=== PATIENT | male | born 1940 ===

== ENCOUNTER 2017-01-23 11:48 | Day surgery (SDC) | payer MEDICARE, OTHER ==
[2017-01-16 09:28] VITALS: BMI 32.9
[2017-01-23 12:43] LABS: BASO # 0.02 K/mm3 (0.0-2.0); BASO % 0.3 % (0.0-3.0); EOS # 0.2 (0.0-0.7); EOS % 3.2 % (1.5-5.0); GRAN # 3.78 (1.4-6.5); GRAN % 57.7 % (50.0-68.0); HEMOGLOBIN 9.7 gm/dL (14.0-18.0); LYMPH % 30.4 % (22.0-35.0); MEAN CELL VOLUME 101.3 fL (80.0-105.0); MEAN CORPUSCULAR HGB CONC 31.6 g/dl (31.0-37.0); MEAN PLATELET VOLUME 9.8 fl (7.0-11.0); MONO # 0.6 (0.1-0.6); MONO % 8.4 % (1.0-6.0); PLATELET COUNT 295 10^3/uL (120.0-450.0); RBC 3.03 10^6/uL (3.5-6.1); RED CELL DISTRIBUTION WIDTH 13.7 % (11.5-14.5); WHITE BLOOD COUNT 6.6 10^3/ul (4.5-11.0)
[2017-01-23 12:48] LABS: INR 1.06 (0.93-1.08); PARTIAL THROMBOPLASTIN TIME 27.4 Seconds (23.7-30.8); PROTHROMBIN TIME 11.4 Seconds (9.9-11.8)
[2017-01-23 12:49] LABS: CALCIUM 8.9 mg/dL (8.4-10.5)
--- NOTE | 2017-01-23 12:53 | CP.SDSHP ---
Same Day Surgery H & P - History Proposed Procedure: ct guided liver Bx. Pre-Op Diagnosis: liver masses .Hx OF RENAL CELL ca s/p nephrectomy. - Previous Medical/Surgical History Cardiac: Hypertension Pulmonary: Smoking, Other (multiple nodules .) Endocrine/Metabolic: Diabetes, Renal Disease Misc: Other (liver masses.) Previous Surgical History: left nephrectomy. - Allergies Allergies: Allergies No Known Allergies Allergy (Verified 07/20/15 12:08) - Physical Exam General Appearance: WML. Mental Status: Alert & Oriented x3 Neuro: WNL Heart: WNL Lungs: WNL GI: WNL - {Optional Preform as Required} Other Pertinent Findings: arthritis. - Impression Impression: liver masses r/o mets.hx of renal cell ca. - Date & Time Date: 01/23/17 Time: 12:53 Short Stay Discharge - Short Stay Discharge Admitting Diagnosis/Reason for Visit: RENAL CA K76.89/C64.9 Disposition: HOME/ ROUTINE Referrals: Aurora Don MD [Primary Care Provider] -
[2017-01-23] MEDS ORDERED: Midazolam 2 MG/2 ML VIAL ONE (14:42)
[2017-01-23] MEDS ORDERED: Sodium Chloride 0.45% 1,000 ML IV SCH (15:45)
[2017-01-23 16:40] VITALS: TEMP 97.4
[2017-01-23 16:56] VITALS: BP 119/66; PULSE 59; RESP 18; O2SAT 99
--- NOTE | 2017-01-23 16:59 | CT ---
PROCEDURE: CT guided liver biopsy. HISTORY: Stable metastatic renal cell carcinoma. New 3.5 cm right liver mass. Or liver metastasis. PHYSICIAN(S): Travis Austin MD. TECHNIQUE: The relative risks and indications of the procedure were explained to the patient and consent obtained. The patient was placed supine on the CT scanner and preliminary images through the liver obtained. Conscious sedation and monitoring were provided throughout the procedure by a nurse. There is a well-circumscribed 3.5 cm mass in the anterior portion of the right liver.. A right intercostal approach was selected and the area prepped and draped in the usual sterile fashion. 1% Xylocaine was used to anesthetize the skin and soft tissues. A 17-gauge guiding needle was advanced into the 3.5 cm right liver mass. Its position was confirmed with CT. Initially 15 cc of clear white fluid was obtained. The specimen was sent for cytology. In addition, core biopsies of the residual wall were obtained. The postprocedure imaging demonstrates a smooth walled cyst. IMPRESSION: 1. CT-guided liver biopsy as described above. It appears that the lesion biopsied was a simple cyst. 2. A PET-CT would be useful to evaluate additional lesions in the liver. If additional lesions are identified which can be biopsied, a repeat biopsy can be performed.
== END 2017-01-23 17:10 | disposition home or self-care (01) ==
LOC: SDS 11:48
PROVIDERS: ATTEND Radiology Vascular & Interventional Radiology
DX: K76.89 Other specified diseases of liver (principal); R16.0 Hepatomegaly, not elsewhere classified; I10 Essential (primary) hypertension; Z85.528 Personal history of other malignant neoplasm of kidney; Z90.5 Acquired absence of kidney; E11.9 Type 2 diabetes mellitus without complications; Z79.84 Long term (current) use of oral hypoglycemic drugs
CPT/HCPCS: 36415; 47000; 77012; 80048; 85025; 85610; 85730; 88108; 88307; J2250; J2405; J3010; J7030

== ENCOUNTER 2018-03-01 10:13 | Inpatient (IN) | payer MEDICARE, OTHER ==
[2018-03-01 10:19] VITALS: BMI 31.7
--- NOTE | 2018-03-01 11:10 | ED PDOC ---
Arrival/HPI - General Chief Complaint: GI Problem Time Seen by Provider: 03/01/18 11:00 Historian: Patient, Spouse, Family - History of Present Illness Narrative History of Present Illness (Text): 03/01/18 11:00 Mr. Gilberto Robert, is a 78 yo male whose PMHx includes Lung CA and DM, presents to the ED with family members c/o nausea, vomiting, diarrhea x 4 days. Patient also noted right sided CP x 1 day. Patient saw his pmh 2 days ago, who prescribed hime Zofran, Lomotil, and Protonix without significant relief of symptoms, Patient stated he has chronic sob, and mild left abdominal pain. Denies fever, skin rash, recent travel, sick contact, recent travel, sick contact or shortness of breath. Time/Duration: Other (see hpi) Context: Home Past Medical History - Provider Review Nursing Documentation Reviewed: Yes - Infectious Disease Hx of Infectious Diseases: None - Cardiac Hx Hypertension: Yes Hx Pacemaker: No - Pulmonary Hx Lung Cancer: Yes (on treatment) - Neurological Hx Neurological Disorder: No - HEENT Hx HEENT Disorder: No - Renal Hx Renal Disorder: Yes - Endocrine/Metabolic Hx Endocrine Disorders: Yes Hx Diabetes Mellitus Type 2: Yes - Hematological/Oncological Hx Anemia: Yes Hx Blood Transfusions: Yes (2006 OR 2007) Hx Blood Transfusion Reaction: No Other/Comment: kideny ca. lung ca - Integumentary Hx Dermatological Disorder: Yes - Musculoskeletal/Rheumatological Hx Musculoskeletal Disorders: No - Gastrointestinal Hx Gastrointestinal Disorders: No - Genitourinary/Gynecological Other/Comment: kidney cancer - Psychiatric Hx Psychophysiologic Disorder: No Hx Substance Use: No - Surgical History Other/Comment: solitary kidney - Anesthesia Hx Anesthesia: Yes Hx Anesthesia Reactions: No Hx Malignant Hyperthermia: No Family/Social History - Physician Review Nursing Documentation Reviewed: Yes Family/Social History: Other (noncontributory) Smoking Status: Former Smoker Hx Alcohol Use: No Hx Substance Use: No Allergies/Home Meds Allergies/Adverse Reactions: Allergies No Known Allergies Allergy (Verified 07/20/15 12:08) Home Medications: Home Meds Medication Instructions Recorded Confirmed Glipizide 5 mg PO BID 05/29/15 03/01/18 MetFORMIN ER [Glucophage XR] 500 mg PO BID 05/29/15 03/01/18 Multivit-Mins/Iron/Folic/Lycop 1 each PO DAILY 01/16/17 03/01/18 [Centrum Men's Tablet] Lisinopril/Hydrochlorothiazide 1 tab PO DAILY 01/23/17 03/01/18 [Lisinopril-Hctz 20-25 mg Tab] amLODIPine [Norvasc] 1 tab PO DAILY PRN 01/23/17 03/01/18 Pazopanib HCl [Votrient] 1 tab PO DAILY 03/01/18 03/01/18 Review of Systems - Review of Systems Constitutional: Normal. absent: Fatigue, Weight Change, Fevers, Night Sweats Eyes: Normal ENT: Normal Respiratory: Normal Cardiovascular: Chest Pain Gastrointestinal: Abdominal Pain, Diarrhea, Nausea, Vomiting, Other (denies rectal bleeding). absent: Hematochezia, Hematemesis Genitourinary Male: Normal. absent: Dysuria, Frequency, Hematuria Musculoskeletal: Normal Skin: Normal. absent: Rash Neurological: Dizziness, Other (patient feels to weak to walk. He has unstable gait.). absent: Headache, Focal Weakness, Gait Changes, Speech Changes, Facial Droop, Disequilibrium, Seizure Endocrine: Normal Hemo/Lymphatic: Normal Psychiatric: Normal Physical Exam Vital Signs Temp Pulse Resp BP Pulse Ox 03/01/18 10:22 97.8 F 73 18 120/84 99 Temperature: Afebrile Blood Pressure: Normal Pulse: Regular Respiratory Rate: Normal Appearance: Positive for: Well-Appearing, Non-Toxic, Comfortable Pain Distress: None Mental Status: Positive for: Alert and Oriented X 3 - Systems Exam Head: Present: Atraumatic, Normocephalic Pupils: Present: PERRL Extroacular Muscles: Present: EOMI Conjunctiva: Present: Normal Mouth: Present: Moist Mucous Membranes Neck: Present: Normal Range of Motion Respiratory/Chest: Present: Clear to Auscultation, Good Air Exchange. No: Respiratory Distress, Accessory Muscle Use Cardiovascular: Present: Regular Rate and Rhythm, Normal S1, S2. No: Murmurs Abdomen: No: Tenderness, Distention, Peritoneal Signs Back: Present: Normal Inspection Upper Extremity: Present: Normal Inspection. No: Cyanosis, Edema Lower Extremity: Present: Normal Inspection. No: Edema Neurological: Present: GCS=15, CN II-XII Intact, Speech Normal, Motor Func Grossly Intact, Normal Sensory Function, Normal Cerebellar Funct Skin: Present: Warm, Dry, Normal Color. No: Rashes Psychiatric: Present: Alert, Oriented x 3, Normal Insight, Normal Concentration Medical Decision Making ED Course and Treatment: 03/01/18 15:[address] Garza regarding labs result, severe hyponatremia. He said he would come and examine patient. Patient will go to ICU. 03/01/18 15:44 I reviewed labs Re-evaluation Time: 15:23 Reassessment Condition: Re-examined, Improving,but remains with symptoms - Lab Interpretations Lab Results: 03/01/18 12:05 03/01/18 12:05 Lab Results 03/01/18 14:30: D-Dimer, Quantitative 329 H 03/01/18 12:20: Urine Color Yellow, Urine Appearance Sl cloudy, Urine pH 6.0, Ur Specific [place] 1.020, Urine Protein >=300 H, Urine Glucose (UA) Negative, Urine Ketones Negative, Urine Blood Small H, Urine Nitrate Negative, Urine Bilirubin Negative, Urine Urobilinogen 0.2, Ur Leukocyte Esterase Negative, Urine RBC 5 - 10, Urine WBC 0 - 2, Ur Epithelial Cells None, Urine Bacteria Mod 03/01/18 12:05: pO2 47, VBG pH 7.42, VBG pCO2 38.0 L, VBG HCO3 24.6, VBG Total CO2 25.8, VBG O2 Sat (Calc) 87.9 H, VBG Base Excess 0.3, VBG Potassium 4.0, Sodium 106.0 L*, Chloride 73.0 L, Glucose 167 H, Lactate 1.8, FiO2 21.0, Venous Blood Potassium 4.0 03/01/18 12:05: Sodium 105 L* D, Chloride 73 L D, Potassium 4.5, Carbon Dioxide 22, Anion Gap 15, BUN 22 H, Creatinine 1.3, Est GFR ( Amer) > 60, Est GFR (Non-Af Amer) 54, Random Glucose 151 H, Calcium 8.5, Total Bilirubin 0.7, AST 49, ALT 33, Alkaline Phosphatase 81, Lactate Dehydrogenase 516, Total Creatine Kinase 947 H, CK-MB (CK-2) 21.9 H, CK-MB (CK-2) % 2.3 L, Troponin I 0.02, NT-Pro-B Natriuret Pep 6410 H, Total Protein 6.3, Albumin 3.4, Globulin 2.9, Albumin/Globulin Ratio 1.2, Amylase 148 H, Lipase 562 H 03/01/18 12:05: PT 12.8 H, INR 1.11, APTT 26.3, D-Dimer, Quantitative Cancelled 03/01/18 12:05: WBC 11.0 D, RBC 3.57, Hgb 11.5 L, Hct 30.8 L, MCV 86.3, MCH 32.2, MCHC 37.3 H, RDW 12.7, Plt Count 390, MPV 9.5, Gran % 82.9 H, Lymph % ( Auto) 10.8 L, Rock % (Auto) 5.9, Eos % (Auto) 0.4 L, Baso % (Auto) 0.0, Gran # 9.09 H, Lymph # (Auto) 1.2, Rock # (Auto) 0.7 H, Eos # (Auto) 0.0, Baso # (Auto ) 0.00 I have reviewed the lab results: Yes Interpretation: Abnormal lab values - RAD Interpretation Radiology Orders: 03/01/18 11:11 ABD & PELVIS IV CONTRAST ONLY [CT] Stat CHEST PORTABLE [RAD] Stat 03/01/18 11:24 HEAD W/O CONTRAST [CT] Stat - EKG Interpretation Interpreted by ED Physician: Yes (NSR @ [address] bpm. In[address]B. No ST changes ) Type: 12 lead EKG Comparison: Similar to previous EKG - Medication Orders Current Medication Orders: Discontinued Medications Famotidine (Pepcid) 20 mg IVP STAT STA Stop: 03/01/18 11:11 Last Admin: 03/01/18 12:21 Dose: 20 mg IVP Administration Document 03/01/18 12:21 [facility] (Rec: 03/01/18 12:21 [facility] [id number]) Charges for Administration # of IVP Administrations 1 Sodium Chloride (Sodium Chloride 0.9%) 1,000 mls @ 999 mls/hr IV .Q1H1M STA Stop: 03/01/18 12:12 Last Admin: 03/01/18 12:22 Dose: 999 mls/hr eMAR Start Stop Document 03/01/18 12:22 GM (Rec: 03/01/18 12:23 [facility] [id number]) Intravenous Solution Start Date 03/01/18 Start Time 12:23 Ondansetron HCl (Zofran Inj) 4 mg IVP STAT STA Stop: 03/01/18 11:11 Last Admin: 03/01/18 12:21 Dose: 4 mg IVP Administration Document 03/01/18 12:21 [facility] (Rec: 03/01/18 12:21 [facility] [id number]) Charges for Administration # of IVP Administrations 1 Disposition/Present on Arrival - Present on Arrival Any Indicators Present on Arrival: No History of DVT/PE: No History of Uncontrolled Diabetes: No Urinary Catheter: No History of Decub. Ulcer: No History Surgical Site Infection Following: None - Disposition Have Diagnosis and Disposition been Completed?: Yes Diagnosis: Hyponatremia, Nausea & vomiting, Diarrhea Disposition: HOSPITALIZED Disposition Time: 15:56 Patient Problems: Current Active Problems Problem Status Onset Diarrhea Acute Hyponatremia Acute Nausea & vomiting Acute Condition: GUARDED Forms: [facility] (Congolese)
[2018-03-01] MEDS ORDERED: Sodium Chloride 0.9% 1,000 ML IV STA (11:12)
[2018-03-01 12:15] LABS: VENOUS BLOOD GAS BASE EXCESS 0.3 mmol/L (0.0-2.0); VENOUS BLOOD GAS PO2 47 mm/Hg (30-55); VENOUS BLOOD PH 7.42 (7.32-7.43)
[2018-03-01 12:20] LABS: EOS % 0.4 % (1.5-5.0); GRAN # 9.09 (1.4-6.5); GRAN % 82.9 % (50.0-68.0); HEMOGLOBIN 11.5 g/dL (14.0-18.0); LYMPH # 1.2 (1.2-3.4); LYMPH % 10.8 % (22.0-35.0); MEAN CELL VOLUME 86.3 fl (80.0-105.0); MEAN CORPUSCULAR HEMOGLOBIN 32.2 pg (25.0-35.0); MEAN CORPUSCULAR HGB CONC 37.3 g/dl (31.0-37.0); MEAN PLATELET VOLUME 9.5 fl (7.0-11.0); MONO # 0.7 (0.1-0.6); MONO % 5.9 % (1.0-6.0); RBC 3.57 10^6/uL (3.5-6.1); RED CELL DISTRIBUTION WIDTH 12.7 % (11.5-14.5)
[2018-03-01 12:25] LABS: INR 1.11; PARTIAL THROMBOPLASTIN TIME 26.3 Seconds (25.1-36.5); PROTHROMBIN TIME 12.8 SECONDS (9.4-12.5)
[2018-03-01 12:41] LABS: ALB/GLOB RATIO 1.2 (1.1-1.8); ALBUMIN 3.4 g/dL (3.0-4.8); ALT/SGPT 33 U/L (7-56); AMYLASE 148 U/L (35-125); AST/SGOT 49 U/L (17-59); BLOOD UREA NITROGEN 22 mg/dL (7-21); CALCIUM 8.5 mg/dL (8.4-10.5); GFR NON-AFRICAN AMERICAN 54; LIPASE 562 U/L (23-300)
[2018-03-01] MEDS ORDERED: Iohexol 350 MG/100 ML VIAL ONE (12:44)
[2018-03-01 12:47] LABS: B-TYPE NATRIURETIC PEPTIDE 6410 pg/mL (0-450); TROPONIN I 0.02 ng/mL
[2018-03-01 13:10] LABS: CK MB% 2.3 % (2.5-3.0); CK-MB 21.9 ng/mL (0.0-3.6)
--- NOTE | 2018-03-01 13:36 | CT ---
Date of service: 03/01/2018 PROCEDURE: CT HEAD WITHOUT CONTRAST. HISTORY: Weakness. COMPARISON: None available. TECHNIQUE: Axial computed tomography images were obtained through the head/brain without intravenous contrast. Radiation dose: Total exam DLP = 781.62 mGy-cm. This CT exam was performed using one or more of the following dose reduction techniques: Automated exposure control, adjustment of the mA and/or kV according to patient size, and/or use of iterative reconstruction technique. FINDINGS: HEMORRHAGE: No acute parenchymal, subarachnoid or extra-axial hemorrhage. BRAIN: There appears to be some very minor chronic periventricular white matter ischemic changes. No obvious parenchymal nor extra-axial mass or collection identified on this noncontrast exam. . Mild generalized volume loss. Vascular calcifications both carotid siphons. VENTRICLES: No obstructive hydrocephalus. CALVARIUM: No acute calvarial fractures. PARANASAL SINUSES: Minor mucosal thickening seen within the ethmoid air complex MASTOID AIR CELLS: Unremarkable as visualized. No inflammatory changes. OTHER FINDINGS: None. IMPRESSION: No acute intracranial hemorrhage. Minor chronic periventricular white matter ischemic changes Mild generalized volume loss
[2018-03-01 13:38] LABS: URINE BILIRUBIN NEGATIVE (NEGATIVE); URINE BLOOD SMALL (NEGATIVE); URINE GLUCOSE (UA) NEGATIVE (NEGATIVE); URINE LEUKOCYTE ESTERASE NEGATIVE Leu/uL (NEGATIVE); URINE PROTEIN >=300 mg/dL (<30 mg/dL); URINE UROBILINOGEN 0.2 E.U./dL (<1 E.U./dL)
[2018-03-01 13:39] LABS: URINE APPEARANCE SL CLOUDY (CLEAR); URINE COLOR YELLOW (YELLOW)
[2018-03-01 13:47] LABS: URINE BACTERIA MOD (NEG); URINE WBC 0 - 2 /hpf (0-6)
--- NOTE | 2018-03-01 15:19 | CT ---
Date of service: 03/01/2018 PROCEDURE: CT Abdomen and Pelvis HISTORY: LLQ pain COMPARISON: None. TECHNIQUE: Contiguous axial images of the abdomen and pelvis following IV contrast . Additional 2D sagittal and coronal reformats generated. Contrast dose: 100 cc Visip[id number] exam was performed using one or more of the following dose reduction techniques: Automated exposure control, adjustment of the mA and/or kV according to patient size, and/or use of iterative reconstruction technique. Radiation dose: Total exam DLP = 1025.2 mGy-cm. FINDINGS: LOWER THORAX: Heart appears enlarged. No significant pericardial effusion. Tiny hiatal hernia. LIVER: There are multiple on varying sized rounded enhancing lesions scattered throughout the hepatic parenchyma which are separate from what are few scattered hepatic cysts. . GALLBLADDER AND BILE DUCTS: Unremarkable. PANCREAS: Mass lesion in the mid upper abdomen which appears to have increased in size from prior PET-CT scan. This could be located in the uncinate process of the pancreas and/or malignant adenopathy within the adjacent mesentery. SPLEEN: Unremarkable. No splenomegaly. ADRENALS: Enlarged right adrenal gland suspicious for metastatic deposit KIDNEYS AND URETERS: Left nephrectomy. Several ill-defined low-attenuation foci seen scattered throughout the cortex of the kidney nonspecific. BLADDER: Urinary bladder physiologically distended. No evidence of intraluminal urinary bladder calculi. REPRODUCTIVE: Unremarkable. APPENDIX: The appendix is not seen with certainty. BOWEL: Evaluation of the bowel is limited due to the lack of oral contrast material. There is a ill-defined soft tissue density within the left upper and mid abdominal mesentery nonspecific. No gross free intraperitoneal air. No drainable fluid collections. LYMPH NODES: As above VASCULATURE: Unremarkable. No aortic aneurysm. BONES: Multilevel degenerative spondylosis of the lower thoracic and lumbar spine. OTHER FINDINGS: None. IMPRESSION: There arm numerous enhancing rounded lesions scattered throughout the hepatic parenchyma consistent with metastases. There are also scattered presumed hepatic cystic lesions are stable. There is an elliptical shaped soft tissue mass density in the mid upper mesentery possibly either within the uncinate process of the pancreas or adjacent conglomeration of malignant adenopathy. Enlarged right adrenal gland which may represent metastatic deposits. Status post left nephrectomy.
[2018-03-01] MEDS ORDERED: Sodium Chloride 0.9% 1,000 ML IV SCH (16:00)
--- NOTE | 2018-03-01 16:08 | RAD ---
Date of service: 03/01/2018 HISTORY: chest pain COMPARISON: No prior. FINDINGS: LUNGS: No active pulmonary disease. PLEURA: No significant pleural effusion identified, no pneumothorax apparent. CARDIOVASCULAR: Normal. OSSEOUS STRUCTURES: No significant abnormalities. VISUALIZED UPPER ABDOMEN: Normal. OTHER FINDINGS: None. IMPRESSION: No active disease.
[2018-03-01 17:19] LABS: CALCIUM 7.9 mg/dL (8.4-10.5)
[2018-03-01] MEDS: Famotidine 20mg/50ml 20 MG/50 ML BAG IVPB SCH (23:01)
[2018-03-01 23:19] LABS: ALB/GLOB RATIO 1.1 (1.1-1.8); ALBUMIN 3.2 g/dL (3.0-4.8); CALCIUM 8.3 mg/dL (8.4-10.5); URIC ACID 5.5 mg/dL (3.5-8.5)
--- NOTE | 2018-03-01 23:35 | CON ---
Copied To: Nico Garza MD Attending MD: Nico Garza MD DATE: 03/01/2018 STOCK CLIPPER NOTE LOCATION: [facility]. REQUESTING PHYSICIAN: Dr. Garcia. CHIEF COMPLAINT: The patient presented with weakness, nauseousness and vomiting and diarrhea for over the last 4 days. HISTORY OF PRESENT ILLNESS: Mr. Robert is a 78-year-old Yakut-speaking male with history of lung CA and renal CA with metastatic lesions to the liver and possibly mets to the pancreas and the adrenals. The patient states that for the last 4 days, he has had severe nauseousness and vomiting with diarrhea and presents to the emergency room after seeing his physician 2 days ago, being prescribed Zofran, Lomotil and Protonix, which gave him no relief. The patient's laboratories revealed a sodium of 105 resulting in severe hyponatremia. He at this time is readily arousable Yakut-speaking male, oriented x3. No complaints of any significant pain, but at times do have occasional abdominal discomfort and some slight chest pain. The patient has no fever, chills. No recent nauseousness or vomiting since being admitted, but has had some mild diarrhea. PAST MEDICAL HISTORY: As above. ALLERGIES: HE HAS NO KNOWN ALLERGIES. CURRENT MEDICATIONS: Can be evaluated as per the nurse's intake form. SOCIAL HISTORY: No history of smoking or EtOH abuse and no drug abuse. FAMILY HISTORY: Noncontributory. REVIEW OF SYSTEMS: CONSTITUTIONAL: All negative at this time, but he presents with fatigue and history from home that he had nauseousness and vomiting. No fever. HEENT: Within normal limits. CARDIOVASCULAR: Does have occasional chest discomfort or pain. RESPIRATORY: Within normal limits. GASTROINTESTINAL: Had the abdominal pain, diarrhea, nauseousness and vomiting. : All negative. MUSCULOSKELETAL: All negative. ENDOCRINE: All negative. HEMATOLOGIC: All negative. IMMUNOLOGIC: All negative. NEUROPSYCHIATRIC: All negative. PHYSICAL EXAMINATION: VITAL SIGNS: Note that his temperature is 97.8, his pulse is 73, respirations are 18 and BP is 120/80. O2 saturation is 99%. HEENT: Head: Atraumatic, normocephalic. Eyes: Reactive to light. Ear, nose and throat: Seemed to be within normal limits. NECK: Supple. No JVD. No thyroid enlargement, no lymph nodes. HEART: Has regular rate and rhythm. Normal S1, S2. LUNGS: Reveal good breath sounds bilaterally. ABDOMEN: Soft, decreased bowel sounds. Tender in the lower quadrant to deep palpation. GENITALIA AND RECTAL: Deferred. MUSCULOSKELETAL: No joint deformities. EXTREMITIES: Reveal trace lower extremity edema. NEUROLOGICALLY: He seems to be grossly intact. LABORATORY DATA: As far as his laboratories are concerned, his white count is 11, hemoglobin is 11.5, hematocrit 30.8 with 390,000 platelets. Sodium is 105, potassium 4.5, chloride 73 with CO2 of 22, BUN of 22, creatinine of 1.3 and a glucose of 151. Chest x-ray reveals no infiltrative processes, no active disease. CT of the chest is pending and CT of the abdomen and pelvis reveals numerous enhancing round lesions scattered throughout the liver parenchyma consistent with metastasis; also there is scattered presumed hepatic cysts, which seemed to be stable. The patient has an elliptical shape soft tissue mass density in the mid upper mesentery region, possibly involving the pancreas and adjacent malignant adenopathy. The patient has a right adrenal gland abnormality, which may represent metastatic deposits and he has a left-sided nephrectomy. IMPRESSION: This patient has severe hyponatremia and hypochloremia. He has a history of renal cell carcinoma several years ago, approximately five to six and reoccurrence of the renal cell carcinoma diagnosed by biopsy of the lung and at this time, noted metastatic lesions to the liver as well as adrenal glands and possible metastatic pancreatic mass. He also has abdominal adenopathy. The patient has a left-sided nephrectomy and has a history of hypertension, diabetes as well. PLAN: As far as our plan, renal has been consulted and they have ordered normal saline with close observation of the sodium to correct the hyponatremia. The patient will get urine osmolality as well. We will follow his other labs and correct as needed. The patient has been admitted to the Intensive Care Unit. He is being given Pepcid as well as Zofran on a p.r.n. basis. We will follow closely and treat aggressively along with the other consultants and the primary care doctor.. Nico Garaz MD [facility] # [id number]
[2018-03-02 00:11] LABS: BASO # 0.01 K/mm3 (0.0-2.0); BASO % 0.1 % (0.0-3.0); EOS # 0.2 (0.0-0.7); EOS % 1.9 % (1.5-5.0); GRAN # 5.25 (1.4-6.5); GRAN % 63.7 % (50.0-68.0); HEMOGLOBIN 11.6 g/dL (14.0-18.0); LYMPH # 1.9 (1.2-3.4); MEAN CORPUSCULAR HEMOGLOBIN 32.3 pg (25.0-35.0); MEAN CORPUSCULAR HGB CONC 36.7 g/dl (31.0-37.0); MEAN PLATELET VOLUME 8.9 fl (7.0-11.0); MONO # 0.9 (0.1-0.6); MONO % 11.3 % (1.0-6.0); RBC 3.59 10^6/uL (3.5-6.1); RED CELL DISTRIBUTION WIDTH 12.8 % (11.5-14.5)
[2018-03-02 00:12] LABS: WHITE BLOOD COUNT 8.3 10^3/ul (4.5-11.0)
[2018-03-02 00:48] LABS: OSMOLALITY,URINE 127 mosm/kg (300-1000)
[2018-03-02 01:06] LABS: URINE BILIRUBIN NEGATIVE (NEGATIVE); URINE BLOOD TRACE-LYSED (NEGATIVE); URINE GLUCOSE (UA) NEGATIVE (NEGATIVE); URINE LEUKOCYTE ESTERASE NEGATIVE Leu/uL (NEGATIVE); URINE PROTEIN 30 mg/dL (<30 mg/dL); URINE UROBILINOGEN 0.2 E.U./dL (<1 E.U./dL)
[2018-03-02 01:08] LABS: URINE APPEARANCE SL CLOUDY (CLEAR); URINE COLOR STRAW (YELLOW)
[2018-03-02 01:13] LABS: URINE RBC 0 - 2 /hpf (0-2); URINE WBC NEGATIVE /hpf (0-6)
[2018-03-02 01:14] LABS: URINE BACTERIA MOD (NEG)
--- NOTE | 2018-03-02 03:58 | CON ---
Copied To: Ajay Muniz MD Attending MD: Ajay Muniz MD DATE: 03/01/2018 NEPHROLOGY CONSULTATION HISTORY OF PRESENT ILLNESS: The patient is a 78-year-old male with past medical history of metastatic renal cell carcinoma status post left nephrectomy with known lung mets, diabetes, hypertension, presented to ED today with complaint of dizziness found to be severely hyponatremic for which Nephrology is being consulted. The patient reports having vomiting going on intermittently since the past 3 months, occurring on p.o. food intake; also reports diarrhea with watery stools about three times per day since the past several weeks. Reports close to 20 pound weight loss during this period; presented to ED after experiencing dizziness and having one episode of falling, denies any significant trauma; denies any trauma to his head. The patient also reports seeing his PMD just yesterday who prescribed him Zofran, Lomotil and Protonix for his symptoms. The patient otherwise denies any change in urination. Denies any dysuria or decreased urination; follows with Oncology and currently taking p.o. chemotherapy for his renal cell carcinoma. PAST MEDICAL HISTORY: As above. ONCOLOGIST: Jesica Goodman MD SOCIAL HISTORY: Previously and occasional smoker. FAMILY HISTORY: Denies any immediate family members with cancer. REVIEW OF SYSTEMS: CONSTITUTIONAL: As per HPI. Denies any fevers or chills. HEENT: Denies any visual disturbance. No difficulty swallowing. RESPIRATORY: Reports some cough today, denies dyspnea. CARDIOVASCULAR: Denies palpitations, gets intermittent chest pains that he attributes to acid reflux. GI: As per HPI. : As per HPI. MUSCULOSKELETAL: History of gout affecting his feet. No flare within the last couple of months, also with chronic back pain. SKIN: Denies any pruritus. NEURO: Dizziness as per HPI. PSYCHIATRIC: Occasional feeling of anxiety/depression. PHYSICAL EXAMINATION: VITAL SIGNS: On presentation blood pressure 120/84, heart rate 73, respirations 18, temperature 97.8, O2 sat 99% on room air. Blood pressure later dropping to 105/53. GENERAL: No distress. Conversing coherently in full sentences. HEENT: Moist mucous membranes. Nonicteric, no cervical lymphadenopathy. RESPIRATORY: Lungs clear to auscultation bilaterally. No rales or rhonchi. No wheezes. CARDIOVASCULAR: Heart sounds S1, S2 normal. No murmurs or gallops or rubs. GI: Abdomen soft, nontender, nondistended. : No bladder distention. EXTREMITIES: No leg edema. SKIN: Warm. No cyanosis. NEURO: No numbness of feet. No tremor at rest. SKIN: Warm. No cyanosis. PSYCHIATRIC: Normal mood, normal affect. LABORATORY DATA: CBC, WBC 11.0, hemoglobin 11.5, hematocrit 30.8, platelets of 390. Chemistry panel, sodium 105 on presentation, potassium 4.5, chloride 73, bicarb 22, BUN 22, creatinine 1.3, glucose 151, calcium 8.5, AST 49, ALT 33. CK 947. ProBNP 6410, amylase 148, lipase 562. Urine studies, urine protein greater than 300 mg/dL. Urine electrolytes and osmolality not yet available. The Chest x-ray directly observed no acute changes. HOME MEDICATIONS: Glipizide 5 mg b.i.d., metformin 500 mg b.i.d., multivitamin, lisinopril/hydrochlorothiazide combination 20/25 mg 1 tablet daily, amlodipine 10 mg daily, and pazopanib 200 mg daily. ASSESSMENT AND PLAN: 1. Severe hyponatremia, most likely hypovolemic hyponatremia in the setting of decreased p.o. intake with gastrointestinal losses and while being on diuretic; increased water intake also contributory; goal of therapy is to ensure serum sodium increases by no more than 6 to 8 mEq in 24 hour. To avoid osmotic demyelination syndrome; serum sodium already increased from 105 to 108 which is normal saline; we will continue normal saline at 100 mL/hour while checking BMP every 4 hours. If urine osmolality drops precipitously, this indicates that enough volume has been given to shut off and we should expect serum sodium to rise sharply; if this happens, we will need to give desmopressin 2 mcg intravenously and D5W boluses; continue to monitor serum sodium every 4 hours. Continue to monitor urine osmolality on every 4 hours. 2. Chronic kidney disease. The patient is status post left nephrectomy for renal cell carcinoma; is on a inhibitor which can cause proteinuria and renal insufficiency; for now we will just monitor renal function. 3. Hypertension. Blood pressure currently low normal range; continue to hold all antihypertensive medications. Critical care time spent greater than 35 minutes. Thank you for this referral. We will be following up closely. Ajay Muniz MD
[2018-03-02 06:55] LABS: IRON 45 ug/dL (45-180)
[2018-03-02 07:04] LABS: % IRON SATURATION 18 % (20-55); TOTAL IRON BINDING CAPACITY 250 ug/dL (261-462)
[2018-03-02 07:34] LABS: ALB/GLOB RATIO 1.1 (1.1-1.8); ALBUMIN 3.1 g/dL (3.0-4.8); CALCIUM 8.2 mg/dL (8.4-10.5)
--- NOTE | 2018-03-02 08:39 | CARD ---
APPROVED REPORT Date of service: 03/01/2018 EKG Measurement Heart [id number] <Conclusion> Normal sinus rhythm Incomplete left bundle branch block Borderline ECG
--- NOTE | 2018-03-02 08:47 | CP.PCM.PN ---
<Anton Floyd - Last Filed: 03/02/18 10:47> Subjective - Date & Time of Evaluation Date of Evaluation: 03/02/18 Time of Evaluation: 09:15 - Subjective Subjective: Anton Floyd- Internal Medicine Resident- Nephrology Progress Note on Behalf of Dr. Muniz Subjective: Patient seen and examined at bedside. Resting comfortably in bed. No acute overnight events. Patient states dizziness, nausea, and diarrhea have improved relative to baseline. Offers no new complaints at this time. Requests his prescription glasses be delivered to bedside. Denies fever, chills, chest pain , shortness of breath, abdominal pain, constipation, and urinary symptoms. 12-point review of systems negative except as indicated in the HPI Physical Examination: - Constitutional Appears: No Acute Distress - Head Exam Head Exam: NORMAL INSPECTION - ENT Exam ENT Exam: Dry Mucus Membranes - Respiratory Exam Respiratory Exam: no accessory muscle use, NORMAL BREATHING PATTERN - Cardiovascular Exam Cardiovascular Exam: REGULAR RHYTHM, +S1, +S2 - GI/Abdominal Exam GI & Abdominal Exam: Soft, no guarding, no rebound tenderness - Extremities Exam Extremities Exam: no clubbing, no cyanosis - Neurological Exam Neurological Exam: Alert, Awake, Responds to verbal stimuli, answers questions, follows commands - Psychiatric Exam Psychiatric exam: Normal Affect - Skin Skin Exam: dry and warm Assessment and Plan: Patient is a 78 year old male with a past medical history of renal cell carcinoma s/p nephrectomy with lung metastases, diabetes, and hypertension who was admitted for evaluation and treatment of dizziness, nausea, and diarrhea. The nephrology team was consulted for management of the patient's severe hyponatremia. Severe Hyponatremia - serum sodium reviewed and trending- 116 from 112 (105 on admission 03/01/18 at ~1200) - serum sodium levels are increasing at a rate greater than recommended - correction goal 0.25mEq/hr- 0.50mEq/hr (6meq-8meq/ 24 hour period- prevent osmotic demyelination syndrome - patient is s/p 2 mcg of DDAVP, will administer another 2mcg of DDAVP + D5W 250cc over one hour - recheck BMP at 1200 with goal of stopping sodium increase - repeat urine sodium and urine osmolality ordered and pending Chronic Kidney Disease Stage 3b - BUN and creatinine reviewed and trended- BUN in low 20s and creatinine increased to 1.7 from 1.5 - avoid nephrotoxic agents, hold home HCTZ/Lisinopril - will consider renal US pending serum nitrogen product trend Hx of Hypertension - Blood pressures reviewed and trended- 109/60s - keep MAPs > 65mmHg - hold home antihypertensives at this time Thank you for the opportunity to participate in the care of this patient. Patient seen, case discussed with, and plan approved by attending physician, Dr. Muniz. Objective - Vital Signs/Intake and Output Vital Signs (last 24 hours): Temp Pulse Resp BP Pulse Ox 98.5 F 53 L 20 109/61 97 03/01/18 18:00 03/02/18 06:00 03/01/18 17:56 03/01/18 17:56 03/01/18 17:56 Intake and Output: 03/02/18 03/02/18 06:59 18:59 Intake Total 400 Output Total 1200 Balance -800 - Medications Medications: Current Medications Acetaminophen (Tylenol 325mg Tab) 650 mg PO Q6H PRN PRN Reason: Temperature Famotidine (Pepcid 20mg/50ml Premix) 20 mg in 50 mls @ 100 mls/hr IVPB Q12 MAURA Last Admin: 03/01/18 23:01 Dose: 100 mls/hr Ondansetron HCl (Zofran Inj) 4 mg IVP Q4H PRN PRN Reason: Nausea/Vomiting - Labs Labs: 03/01/18 23:45 03/02/18 05:20 PT 12.8 SECONDS (9.4-12.5) H 03/01/18 12:05 INR 1.11 03/01/18 12:05 APTT 26.3 Seconds (25.1-36.5) 03/01/18 12:05 <Ajay Muniz - Last Filed: 03/02/18 21:06> Objective - Vital Signs/Intake and Output Vital Signs (last 24 hours): Temp Pulse Resp BP Pulse Ox 98.5 F 67 24 100/52 L 99 03/01/18 18:00 03/02/18 17:30 03/02/18 17:10 03/02/18 17:00 03/02/18 17:30 Intake and Output: 03/02/18 03/03/18 18:59 06:59 Output Total 1 Balance -1 - Medications Medications: Current Medications Acetaminophen (Tylenol 325mg Tab) 650 mg PO Q6H PRN PRN Reason: Temperature Benzocaine/Menthol (Cepacol Sore Throat) 1 jimenez MT Q2H PRN PRN Reason: Sore Throat Last Admin: 03/02/18 15:25 Dose: 1 jimenez Famotidine (Pepcid 20mg/50ml Premix) 20 mg in 50 mls @ 100 mls/hr IVPB Q12 [facility]URA Last Admin: 03/02/18 09:51 Dose: 100 mls/hr Sodium Chloride (Hypertonic Saline 3%) 500 mls @ 10 mls/hr IV .Q24H [facility]URA Last Admin: 03/02/18 19:45 Dose: 10 mls/hr Insulin Human Regular (Humulin R Low) 0 units SC ACHS [facility]URA PRN Reason: Protocol Last Admin: 03/02/18 16:55 Dose: 2 units Ondansetron HCl (Zofran Inj) 4 mg IVP Q4H PRN PRN Reason: Nausea/Vomiting Last Admin: 03/02/18 15:01 Dose: 4 mg - Labs Labs: 03/01/18 23:45 03/02/18 19:23 PT 12.8 SECONDS (9.4-12.5) H 03/01/18 12:05 INR 1.11 03/01/18 12:05 APTT 26.3 Seconds (25.1-36.5) 03/01/18 12:05 Attending/Attestation - Attestation I have personally seen and examined this patient.: Yes I have fully participated in the care of the patient.: Yes I have reviewed all pertinent clinical information, including history, physical exam and plan: Yes Notes (Text): Patient seen and examined; I agree with the resident's note as above with the following additions/edits: 78-year-old male with past medical history of hypertension, metastatic renal cell carcinoma status post left nephrectomy, presenting with severe hyponatremia in the setting of decreased PO intake, vomiting and being on diuretic; hyponatremia most likely consistent with volume depletion (although inadequate solute intake may be contributory); urine sodium also consistent with volume depletion; patient given gentle IV fluids overnight with relatively rapid correction of serum sodium greater then desired goal (6-8 mEq over 24- hour period); Patient given another dose of desmopressin 2 g IV along with 250 mL D5W this morning; goal was to prevent further rise in serum sodium; however serum sodium instead dropped sharply (112 -> 107); At this point the safest way to to correct this hyponatremia gradually is to give low dose of hypertonic saline; goal is for serum sodium increase of no more than 16 mEq in 48 hour period; since desmopressin effect is still present we should not see any rapid rise in serum sodium; hypertonic saline will also help correct underlying volume depletion which is the likely cause of ZEINA ( prerenal etiology likely worsened by our giving desmopressin); -starting 3% saline at 10 mL per hour and checking serum sodium every 4 hours; -monitor Ur osm q6h; -avoid nephrotoxic agents; Critical care time spent 35 minutes; 03/02/18 21:03
[2018-03-02] MEDS: Famotidine 20mg/50ml 20 MG/50 ML BAG IVPB SCH ×2 (09:51→22:02)
--- NOTE | 2018-03-02 10:17 | CP.CCUPN ---
<Indra Norris - Last Filed: 03/02/18 09:51> CCU Subjective - Physician Review Events Since Last Encounter (Free Text): 03/02/18 09:51 Patient seen and examined at bedside. No acute overnight events. Patient denies any new complaints, but states that he's thirsty. CCU Objective - Vital Signs / Intake & Output Vital Signs (Last 4 hours): Vital Signs Pulse 03/02/18 06:00 53 L Intake and Output (Last 8hrs): Intake & Output 03/01/18 03/02/18 03/02/18 22:59 06:59 14:59 Intake Total 1000 400 Output Total 1200 1200 Balance -200 -800 Weight 83.915 kg Intake: IV 1000 400 Left Antecubital 0 Right Hand 1000 400 Output: Urine 1200 Stool 1200 Emesis 0 - Physical Exam Head: Positive for: Atraumatic, Normocephalic Pupils: Positive for: PERRL Extroacular Muscles: Positive for: EOMI Conjunctiva: Positive for: Normal Mouth: Positive for: Moist Mucous Membranes Neck: Positive for: Normal Range of Motion Respiratory/Chest: Positive for: Clear to Auscultation, Good Air Exchange. Negative for: Respiratory Distress, Accessory Muscle Use Cardiovascular: Positive for: Regular Rate and Rhythm, Normal S1, S2. Negative for: Murmurs Abdomen: Negative for: Tenderness, Distention, Peritoneal Signs Back: Positive for: Normal Inspection Upper Extremity: Positive for: Normal Inspection. Negative for: Cyanosis, Edema Lower Extremity: Positive for: Normal Inspection. Negative for: Edema Neurological: Positive for: GCS=15, CN II-XII Intact, Speech Normal, Motor Func Grossly Intact, Normal Sensory Function, Normal Cerebellar Funct Skin: Positive for: Warm, Dry, Normal Color. Negative for: Rashes Psychiatric: Positive for: Alert, Oriented x 3, Normal Insight, Normal Concentration - Medications Active Medications: Active Medications Generic Name Dose Route Start Last Admin Trade Name Freq PRN Reason Stop Dose Admin Acetaminophen 650 mg 03/01/18 18:45 Tylenol 325mg Tab PO Q6H PRN Temperature Famotidine 20 mg in 50 mls @ 100 mls/hr 03/01/18 22:00 03/01/18 23:01 Pepcid 20mg/50ml Premix IVPB 100 mls/hr Q12 MAURA Administration Dextrose 1,000 mls @ 250 mls/hr 03/02/18 09:00 Dextrose 5% In Water 1000 Ml IV .Q4H MAURA Ondansetron HCl 4 mg 03/01/18 18:45 Zofran Inj IVP Q4H PRN Nausea/Vomiting - Patient Studies Lab Studies: Lab Studies 03/02/18 03/02/18 03/02/18 Range/Units 05:20 05:20 00:45 WBC (4.5-11.0) 10^3/ul RBC (3.5-6.1) 10^6/uL Hgb (14.0-18.0) g/dL Hct (42.0-52.0) % MCV (80.0-105.0) fl MCH (25.0-35.0) pg MCHC (31.0-37.0) g/dl RDW (11.5-14.5) % Plt Count (120.0-450.0) 10^3/uL MPV (7.0-11.0) fl Gran % (50.0-68.0) % Lymph % (Auto) (22.0-35.0) % [place] % (Auto) (1.0-6.0) % Eos % (Auto) (1.5-5.0) % Baso % (Auto) (0.0-3.0) % Gran # (1.4-6.5) Lymph # (Auto) (1.2-3.4) [place] # (Auto) (0.1-0.6) Eos # (Auto) (0.0-0.7) Baso # (Auto) (0.0-2.0) K/mm3 Sodium 116 L* (132-148) mmol/L Potassium 3.9 (3.6-5.0) mmol/L Chloride 81 L (98-107) mmol/L Carbon Dioxide 26 (21-33) mmol/L Anion Gap 13 (10-20) BUN 23 H (7-21) mg/dL Creatinine 1.7 H (0.8-1.5) mg/dl Est GFR ( Amer) 48 Est GFR (Non-Af Amer) 39 Random Glucose 89 (70-110) mg/dL Uric Acid (3.5-8.5) mg/dL Calcium 8.2 L (8.4-10.5) mg/dL Phosphorus (2.5-4.5) mg/dL Magnesium (1.7-2.2) mg/dL Iron 45 (45-180) ug/dL TIBC 250 L (261-462) ug/dL % Saturation 18 L (20-55) % Total Bilirubin 0.7 (0.2-1.3) mg/dL AST 43 (17-59) U/L ALT 39 (7-56) U/L Alkaline Phosphatase 76 (38-126) U/L Total Protein 5.9 (5.8-8.3) g/dL Albumin 3.1 (3.0-4.8) g/dL Globulin 2.8 gm/dL Albumin/Globulin Ratio 1.1 (1.1-1.8) Triglycerides 157 (35-160) mg/dL Cholesterol 103 L (130-200) mg/dL LDL Cholesterol Direct 50 (0-129) mg/dL HDL Cholesterol 27 L (29-60) mg/dL Urine Color Straw (YELLOW) Urine Appearance Sl cloudy (CLEAR) Urine pH 6.0 (4.7-8.0) Ur Specific [place] <= 1.005 (1.005-1.035) Urine Protein 30 H (<30 mg/dL) mg/dL Urine Glucose (UA) Negative (NEGATIVE) mg/dL Urine Ketones Negative (NEGATIVE) mg/dL Urine Blood Trace-lysed H (NEGATIVE) Urine Nitrate Negative (NEGATIVE) Urine Bilirubin Negative (NEGATIVE) Urine Urobilinogen 0.2 (<1 E.U./dL) E.U./dL Ur Leukocyte Esterase Negative (NEGATIVE) [place]/uL Urine RBC 0 - 2 (0-2) /hpf Urine WBC Negative (0-6) /hpf Ur Epithelial Cells 3 - 4 (0-5) /hpf Urine Bacteria Mod (NEG) Urine Other Mucus Urine Osmolality (300-1000) mosm/kg Ur Random Sodium meq/L 03/02/18 03/01/18 03/01/18 Range/Units 00:25 23:45 22:57 WBC 8.3 D (4.5-11.0) 10^3/ul RBC 3.59 (3.5-6.1) 10^6/uL Hgb 11.6 L (14.0-18.0) g/dL Hct 31.6 L (42.0-52.0) % MCV 88.0 (80.0-105.0) fl MCH 32.3 (25.0-35.0) pg MCHC 36.7 (31.0-37.0) g/dl RDW 12.8 (11.5-14.5) % Plt Count 310 (120.0-450.0) 10^3/uL MPV 8.9 (7.0-11.0) fl Gran % 63.7 (50.0-68.0) % Lymph % (Auto) 23.0 (22.0-35.0) % [place] % (Auto) 11.3 H (1.0-6.0) % Eos % (Auto) 1.9 (1.5-5.0) % Baso % (Auto) 0.1 (0.0-3.0) % Gran # 5.25 (1.4-6.5) Lymph # (Auto) 1.9 (1.2-3.4) [place] # (Auto) 0.9 H (0.1-0.6) Eos # (Auto) 0.2 (0.0-0.7) Baso # (Auto) 0.01 (0.0-2.0) K/mm3 Sodium 112 L* (132-148) mmol/L Potassium 4.0 (3.6-5.0) mmol/L Chloride 81 L (98-107) mmol/L Carbon Dioxide 20 L (21-33) mmol/L Anion Gap 14 (10-20) BUN 22 H (7-21) mg/dL Creatinine 1.5 (0.8-1.5) mg/dl Est GFR ( Amer) 55 Est GFR (Non-Af Amer) 46 Random Glucose 93 (70-110) mg/dL Uric Acid 5.5 (3.5-8.5) mg/dL Calcium 8.3 L (8.4-10.5) mg/dL Phosphorus 2.8 (2.5-4.5) mg/dL Magnesium 1.8 (1.7-2.2) mg/dL Iron (45-180) ug/dL TIBC (261-462) ug/dL % Saturation (20-55) % Total Bilirubin 0.7 (0.2-1.3) mg/dL AST 43 (17-59) U/L ALT 24 (7-56) U/L Alkaline Phosphatase 81 (38-126) U/L Total Protein 6.2 (5.8-8.3) g/dL Albumin 3.2 (3.0-4.8) g/dL Globulin 2.9 gm/dL Albumin/Globulin Ratio 1.1 (1.1-1.8) Triglycerides (35-160) mg/dL Cholesterol (130-200) mg/dL LDL Cholesterol Direct (0-129) mg/dL HDL Cholesterol (29-60) mg/dL Urine Color (YELLOW) Urine Appearance (CLEAR) Urine pH (4.7-8.0) Ur Specific [place] (1.005-1.035) Urine Protein (<30 mg/dL) mg/dL Urine Glucose (UA) (NEGATIVE) mg/dL Urine Ketones (NEGATIVE) mg/dL Urine Blood (NEGATIVE) Urine Nitrate (NEGATIVE) Urine Bilirubin (NEGATIVE) Urine Urobilinogen (<1 E.U./dL) E.U./dL Ur Leukocyte Esterase (NEGATIVE) [place]/uL Urine RBC (0-2) /hpf Urine WBC (0-6) /hpf Ur Epithelial Cells (0-5) /hpf Urine Bacteria (NEG) Urine Other Urine Osmolality 127 L (300-1000) mosm/kg Ur Random Sodium 16 meq/L 03/01/18 Range/Units 16:53 WBC (4.5-11.0) 10^3/ul RBC (3.5-6.1) 10^6/uL Hgb (14.0-18.0) g/dL Hct (42.0-52.0) % MCV (80.0-105.0) fl MCH (25.0-35.0) pg MCHC (31.0-37.0) g/dl RDW (11.5-14.5) % Plt Count (120.0-450.0) 10^3/uL MPV (7.0-11.0) fl Gran % (50.0-68.0) % Lymph % (Auto) (22.0-35.0) % [place] % (Auto) (1.0-6.0) % Eos % (Auto) (1.5-5.0) % Baso % (Auto) (0.0-3.0) % Gran # (1.4-6.5) Lymph # (Auto) (1.2-3.4) [place] # (Auto) (0.1-0.6) Eos # (Auto) (0.0-0.7) Baso # (Auto) (0.0-2.0) K/mm3 Sodium 108 L* (132-148) mmol/L Potassium 4.1 (3.6-5.0) mmol/L Chloride 75 L (98-107) mmol/L Carbon Dioxide 24 (21-33) mmol/L Anion Gap 14 (10-20) BUN 22 H (7-21) mg/dL Creatinine 1.4 (0.8-1.5) mg/dl Est GFR ( Amer) 60 Est GFR (Non-Af Amer) 49 Random Glucose 124 H (70-110) mg/dL Uric Acid (3.5-8.5) mg/dL Calcium 7.9 L (8.4-10.5) mg/dL Phosphorus (2.5-4.5) mg/dL Magnesium (1.7-2.2) mg/dL Iron (45-180) ug/dL TIBC (261-462) ug/dL % Saturation (20-55) % Total Bilirubin (0.2-1.3) mg/dL AST (17-59) U/L ALT (7-56) U/L Alkaline Phosphatase (38-126) U/L Total Protein (5.8-8.3) g/dL Albumin (3.0-4.8) g/dL Globulin gm/dL Albumin/Globulin Ratio (1.1-1.8) Triglycerides (35-160) mg/dL Cholesterol (130-200) mg/dL LDL Cholesterol Direct (0-129) mg/dL HDL Cholesterol (29-60) mg/dL Urine Color (YELLOW) Urine Appearance (CLEAR) Urine pH (4.7-8.0) Ur Specific [place] (1.005-1.035) Urine Protein (<30 mg/dL) mg/dL Urine Glucose (UA) (NEGATIVE) mg/dL Urine Ketones (NEGATIVE) mg/dL Urine Blood (NEGATIVE) Urine Nitrate (NEGATIVE) Urine Bilirubin (NEGATIVE) Urine Urobilinogen (<1 E.U./dL) E.U./dL Ur Leukocyte Esterase (NEGATIVE) [place]/uL Urine RBC (0-2) /hpf Urine WBC (0-6) /hpf Ur Epithelial Cells (0-5) /hpf Urine Bacteria (NEG) Urine Other Urine Osmolality (300-1000) mosm/kg Ur Random Sodium meq/L Laboratory Results - last 24 hr 03/01/18 03/01/18 03/01/18 16:53 22:57 23:45 WBC 8.3 D RBC 3.59 Hgb 11.6 L Hct 31.6 L MCV 88.0 MCH 32.3 MCHC 36.7 RDW 12.8 Plt Count 310 MPV 8.9 Gran % 63.7 Lymph % (Auto) 23.0 [place] % (Auto) 11.3 H Eos % (Auto) 1.9 Baso % (Auto) 0.1 Gran # 5.25 Lymph # (Auto) 1.9 [place] # (Auto) 0.9 H Eos # (Auto) 0.2 Baso # (Auto) 0.01 Sodium 108 L* 112 L* Potassium 4.1 4.0 Chloride 75 L 81 L Carbon Dioxide 24 20 L Anion Gap 14 14 BUN 22 H 22 H Creatinine 1.4 1.5 Est GFR ( Amer) 60 55 Est GFR (Non-Af Amer) 49 46 Random Glucose 124 H 93 Uric Acid 5.5 Calcium 7.9 L 8.3 L Phosphorus 2.8 Magnesium 1.8 Iron TIBC % Saturation Total Bilirubin 0.7 AST 43 ALT 24 Alkaline Phosphatase 81 Total Protein 6.2 Albumin 3.2 Globulin 2.9 Albumin/Globulin Ratio 1.1 Triglycerides Cholesterol LDL Cholesterol Direct HDL Cholesterol Urine Color Urine Appearance Urine pH Ur Specific [place] Urine Protein Urine Glucose (UA) Urine Ketones Urine Blood Urine Nitrate Urine Bilirubin Urine Urobilinogen Ur Leukocyte Esterase Urine RBC Urine WBC Ur Epithelial Cells Urine Bacteria Urine Other Urine Osmolality Ur Random Sodium 03/02/18 03/02/18 03/02/18 00:25 00:45 05:20 WBC RBC Hgb Hct MCV MCH MCHC RDW Plt Count MPV Gran % Lymph % (Auto) [place] % (Auto) Eos % (Auto) Baso % (Auto) Gran # Lymph # (Auto) [place] # (Auto) Eos # (Auto) Baso # (Auto) Sodium 116 L* Potassium 3.9 Chloride 81 L Carbon Dioxide 26 Anion Gap 13 BUN 23 H Creatinine 1.7 H Est GFR ( Amer) 48 Est GFR (Non-Af Amer) 39 Random Glucose 89 Uric Acid Calcium 8.2 L Phosphorus Magnesium Iron TIBC % Saturation Total Bilirubin 0.7 AST 43 ALT 39 Alkaline Phosphatase 76 Total Protein 5.9 Albumin 3.1 Globulin 2.8 Albumin/Globulin Ratio 1.1 Triglycerides 157 Cholesterol 103 L LDL Cholesterol Direct 50 HDL Cholesterol 27 L Urine Color Straw Urine Appearance Sl cloudy Urine pH 6.0 Ur Specific [place] <= 1.005 Urine Protein 30 H Urine Glucose (UA) Negative Urine Ketones Negative Urine Blood Trace-lysed H Urine Nitrate Negative Urine Bilirubin Negative Urine Urobilinogen 0.2 Ur Leukocyte Esterase Negative Urine RBC 0 - 2 Urine WBC Negative Ur Epithelial Cells 3 - 4 Urine Bacteria Mod Urine Other Mucus Urine Osmolality 127 L Ur Random Sodium 16 03/02/18 05:20 WBC RBC Hgb Hct MCV MCH MCHC RDW Plt Count MPV Gran % Lymph % (Auto) [place] % (Auto) Eos % (Auto) Baso % (Auto) Gran # Lymph # (Auto) [place] # (Auto) Eos # (Auto) Baso # (Auto) Sodium Potassium Chloride Carbon Dioxide Anion Gap BUN Creatinine Est GFR ( Amer) Est GFR (Non-Af Amer) Random Glucose Uric Acid Calcium Phosphorus Magnesium Iron 45 TIBC 250 L % Saturation 18 L Total Bilirubin AST ALT Alkaline Phosphatase Total Protein Albumin Globulin Albumin/Globulin Ratio Triglycerides Cholesterol LDL Cholesterol Direct HDL Cholesterol Urine Color Urine Appearance Urine pH Ur Specific [place] Urine Protein Urine Glucose (UA) Urine Ketones Urine Blood Urine Nitrate Urine Bilirubin Urine Urobilinogen Ur Leukocyte Esterase Urine RBC Urine WBC Ur Epithelial Cells Urine Bacteria Urine Other Urine Osmolality Ur Random Sodium Critical Care Progress Note - Nutrition Nutrition: Nutrition Category Date Time Status Heart Healthy Diet [DIET] Diets 03/02/18 Breakfast Ordered Assessment/Plan - Assessment and Plan (Free Text) Assessment: 78 year old male under ICU management for hypontremia, from sodium of 106 to sodium of 116 right now. Hx Lung CA Hx Renal CA Hx HTN Patient was started on NS @ 100 mls/hr, and his sodium corrected to 112 overnight, 116 right now. Patient should be correcting at 6-8 units per 24 hour period. Patient has over-corrected slightly, so DDAVP was given by renal team. Patient's CR is also trending upward at 1.7, indicating that the hyponatremia is most likely hypovolemic 2/2 poor po intake of hydration. Plan Neuro: - Maintain normothermia - DDAVP for over-correction Pulm: - Maintain O2 sats > 92% - C/w home pazopanib for CA Cardio: - Maintain MAP > 65 - Patient is normotensive right now, hold home HTN meds GI: - Continue GI PPx with pepcid; Zofran PRN for nausea - HHD : - DDAVP for over-correction of Na - Hold NS for now, start D5W - Maintain euvolemia ID: - No acute ID issues Endo: - Maintain euglycemia 140-180 - Hold home oral antihyperglycemic Heme: - SCD's for DVT PPX <Norbert Cao - Last Filed: 03/02/18 12:35> CCU Objective - Vital Signs / Intake & Output Vital Signs (Last 4 hours): Vital Signs Pulse Resp BP Pulse Ox 03/02/18 12:20 69 24 97 03/02/18 12:10 70 20 98 03/02/18 12:00 64 23 99 03/02/18 11:50 61 17 98 03/02/18 11:40 61 16 96 03/02/18 11:30 57 L 14 95 03/02/18 11:20 67 42 H 95 03/02/18 11:10 63 53 H 98 03/02/18 11:00 64 95 03/02/18 10:50 60 36 H 98 03/02/18 10:40 76 23 98 03/02/18 10:30 73 20 98 03/02/18 10:20 65 15 97 03/02/18 10:10 69 22 98 03/02/18 10:01 60 21 138/67 03/02/18 10:00 59 L 19 99 03/02/18 09:50 59 L 17 98 03/02/18 09:40 58 L 21 98 03/02/18 09:30 57 L 17 97 03/02/18 09:20 59 L 18 99 03/02/18 09:10 66 98 03/02/18 09:00 58 L 17 133/72 99 03/02/18 08:50 59 L 19 97 03/02/18 08:40 65 56 H 98 Intake and Output (Last 8hrs): Intake & Output 03/01/18 03/02/18 03/02/18 22:59 06:59 14:59 Intake Total 1000 400 Output Total 1200 1200 Balance -200 -800 Weight 185 lb Intake: IV 1000 400 Left Antecubital 0 Right Hand 1000 400 Output: Urine 1200 Stool 1200 Emesis 0 - Medications Active Medications: Active Medications Generic Name Dose Route Start Last Admin Trade Name Freq PRN Reason Stop Dose Admin Acetaminophen 650 mg 03/01/18 18:45 Tylenol 325mg Tab PO Q6H PRN Temperature Famotidine 20 mg in 50 mls @ 100 mls/hr 03/01/18 22:00 03/02/18 09:51 Pepcid 20mg/50ml Premix IVPB 100 mls/hr Q12 MAURA Administration Dextrose 1,000 mls @ 250 mls/hr 03/02/18 09:00 03/02/18 11:10 Dextrose 5% In Water 1000 Ml IV 03/02/18 12:59 250 mls/hr .Q4H MAURA Administration Insulin Human Regular 0 units 03/02/18 11:30 03/02/18 11:38 Humulin R Low SC Not Given ACHS MAURA Protocol Ondansetron HCl 4 mg 03/01/18 18:45 Zofran Inj IVP Q4H PRN Nausea/Vomiting - Patient Studies Lab Studies: Lab Studies 03/02/18 03/02/18 03/02/18 Range/Units 11:10 05:20 05:20 WBC (4.5-11.0) 10^3/ul RBC (3.5-6.1) 10^6/uL Hgb (14.0-18.0) g/dL Hct (42.0-52.0) % MCV (80.0-105.0) fl MCH (25.0-35.0) pg MCHC (31.0-37.0) g/dl RDW (11.5-14.5) % Plt Count (120.0-450.0) 10^3/uL MPV (7.0-11.0) fl Gran % (50.0-68.0) % Lymph % (Auto) (22.0-35.0) % [place] % (Auto) (1.0-6.0) % Eos % (Auto) (1.5-5.0) % Baso % (Auto) (0.0-3.0) % Gran # (1.4-6.5) Lymph # (Auto) (1.2-3.4) [place] # (Auto) (0.1-0.6) Eos # (Auto) (0.0-0.7) Baso # (Auto) (0.0-2.0) K/mm3 Sodium (132-148) mmol/L Potassium (3.6-5.0) mmol/L Chloride (98-107) mmol/L Carbon Dioxide (21-33) mmol/L Anion Gap (10-20) BUN (7-21) mg/dL Creatinine (0.8-1.5) mg/dl Est GFR ( Amer) Est GFR (Non-Af Amer) POC Glucose (mg/dL) 175 H (65-110) mg/dL Random Glucose (70-110) mg/dL Hemoglobin A1c 6.6 H (4.2-6.5) % Uric Acid (3.5-8.5) mg/dL Calcium (8.4-10.5) mg/dL Phosphorus (2.5-4.5) mg/dL Magnesium (1.7-2.2) mg/dL Iron 45 (45-180) ug/dL TIBC 250 L (261-462) ug/dL % Saturation 18 L (20-55) % Total Bilirubin (0.2-1.3) mg/dL AST (17-59) U/L ALT (7-56) U/L Alkaline Phosphatase (38-126) U/L Total Protein (5.8-8.3) g/dL Albumin (3.0-4.8) g/dL Globulin gm/dL Albumin/Globulin Ratio (1.1-1.8) Triglycerides (35-160) mg/dL Cholesterol (130-200) mg/dL LDL Cholesterol Direct (0-129) mg/dL HDL Cholesterol (29-60) mg/dL Urine Color (YELLOW) Urine Appearance (CLEAR) Urine pH (4.7-8.0) Ur Specific [place] (1.005-1.035) Urine Protein (<30 mg/dL) mg/dL Urine Glucose (UA) (NEGATIVE) mg/dL Urine Ketones (NEGATIVE) mg/dL Urine Blood (NEGATIVE) Urine Nitrate (NEGATIVE) Urine Bilirubin (NEGATIVE) Urine Urobilinogen (<1 E.U./dL) E.U./dL Ur Leukocyte Esterase (NEGATIVE) [place]/uL Urine RBC (0-2) /hpf Urine WBC (0-6) /hpf Ur Epithelial Cells (0-5) /hpf Urine Bacteria (NEG) Urine Other Urine Osmolality (300-1000) mosm/kg Ur Random Sodium meq/L 03/02/18 03/02/18 03/02/18 Range/Units 05:20 00:45 00:25 WBC (4.5-11.0) 10^3/ul RBC (3.5-6.1) 10^6/uL Hgb (14.0-18.0) g/dL Hct (42.0-52.0) % MCV (80.0-105.0) fl MCH (25.0-35.0) pg MCHC (31.0-37.0) g/dl RDW (11.5-14.5) % Plt Count (120.0-450.0) 10^3/uL MPV (7.0-11.0) fl Gran % (50.0-68.0) % Lymph % (Auto) (22.0-35.0) % [place] % (Auto) (1.0-6.0) % Eos % (Auto) (1.5-5.0) % Baso % (Auto) (0.0-3.0) % Gran # (1.4-6.5) Lymph # (Auto) (1.2-3.4) [place] # (Auto) (0.1-0.6) Eos # (Auto) (0.0-0.7) Baso # (Auto) (0.0-2.0) K/mm3 Sodium 116 L* (132-148) mmol/L Potassium 3.9 (3.6-5.0) mmol/L Chloride 81 L (98-107) mmol/L Carbon Dioxide 26 (21-33) mmol/L Anion Gap 13 (10-20) BUN 23 H (7-21) mg/dL Creatinine 1.7 H (0.8-1.5) mg/dl Est GFR ( Amer) 48 Est GFR (Non-Af Amer) 39 POC Glucose (mg/dL) (65-110) mg/dL Random Glucose 89 (70-110) mg/dL Hemoglobin A1c (4.2-6.5) % Uric Acid (3.5-8.5) mg/dL Calcium 8.2 L (8.4-10.5) mg/dL Phosphorus (2.5-4.5) mg/dL Magnesium (1.7-2.2) mg/dL Iron (45-180) ug/dL TIBC (261-462) ug/dL % Saturation (20-55) % Total Bilirubin 0.7 (0.2-1.3) mg/dL AST 43 (17-59) U/L ALT 39 (7-56) U/L Alkaline Phosphatase 76 (38-126) U/L Total Protein 5.9 (5.8-8.3) g/dL Albumin 3.1 (3.0-4.8) g/dL Globulin 2.8 gm/dL Albumin/Globulin Ratio 1.1 (1.1-1.8) Triglycerides 157 (35-160) mg/dL Cholesterol 103 L (130-200) mg/dL LDL Cholesterol Direct 50 (0-129) mg/dL HDL Cholesterol 27 L (29-60) mg/dL Urine Color Straw (YELLOW) Urine Appearance Sl cloudy (CLEAR) Urine pH 6.0 (4.7-8.0) Ur Specific [place] <= 1.005 (1.005-1.035) Urine Protein 30 H (<30 mg/dL) mg/dL Urine Glucose (UA) Negative (NEGATIVE) mg/dL Urine Ketones Negative (NEGATIVE) mg/dL Urine Blood Trace-lysed H (NEGATIVE) Urine Nitrate Negative (NEGATIVE) Urine Bilirubin Negative (NEGATIVE) Urine Urobilinogen 0.2 (<1 E.U./dL) E.U./dL Ur Leukocyte Esterase Negative (NEGATIVE) [place]/uL Urine RBC 0 - 2 (0-2) /hpf Urine WBC Negative (0-6) /hpf Ur Epithelial Cells 3 - 4 (0-5) /hpf Urine Bacteria Mod (NEG) Urine Other Mucus Urine Osmolality 127 L (300-1000) mosm/kg Ur Random Sodium 16 meq/L 03/01/18 03/01/18 03/01/18 Range/Units 23:45 22:57 21:07 WBC 8.3 D (4.5-11.0) 10^3/ul RBC 3.59 (3.5-6.1) 10^6/uL Hgb 11.6 L (14.0-18.0) g/dL Hct 31.6 L (42.0-52.0) % MCV 88.0 (80.0-105.0) fl MCH 32.3 (25.0-35.0) pg MCHC 36.7 (31.0-37.0) g/dl RDW 12.8 (11.5-14.5) % Plt Count 310 (120.0-450.0) 10^3/uL MPV 8.9 (7.0-11.0) fl Gran % 63.7 (50.0-68.0) % Lymph % (Auto) 23.0 (22.0-35.0) % [place] % (Auto) 11.3 H (1.0-6.0) % Eos % (Auto) 1.9 (1.5-5.0) % Baso % (Auto) 0.1 (0.0-3.0) % Gran # 5.25 (1.4-6.5) Lymph # (Auto) 1.9 (1.2-3.4) [place] # (Auto) 0.9 H (0.1-0.6) Eos # (Auto) 0.2 (0.0-0.7) Baso # (Auto) 0.01 (0.0-2.0) K/mm3 Sodium 112 L* (132-148) mmol/L Potassium 4.0 (3.6-5.0) mmol/L Chloride 81 L (98-107) mmol/L Carbon Dioxide 20 L (21-33) mmol/L Anion Gap 14 (10-20) BUN 22 H (7-21) mg/dL Creatinine 1.5 (0.8-1.5) mg/dl Est GFR ( Amer) 55 Est GFR (Non-Af Amer) 46 POC Glucose (mg/dL) 103 (65-110) mg/dL Random Glucose 93 (70-110) mg/dL Hemoglobin A1c (4.2-6.5) % Uric Acid 5.5 (3.5-8.5) mg/dL Calcium 8.3 L (8.4-10.5) mg/dL Phosphorus 2.8 (2.5-4.5) mg/dL Magnesium 1.8 (1.7-2.2) mg/dL Iron (45-180) ug/dL TIBC (261-462) ug/dL % Saturation (20-55) % Total Bilirubin 0.7 (0.2-1.3) mg/dL AST 43 (17-59) U/L ALT 24 (7-56) U/L Alkaline Phosphatase 81 (38-126) U/L Total Protein 6.2 (5.8-8.3) g/dL Albumin 3.2 (3.0-4.8) g/dL Globulin 2.9 gm/dL Albumin/Globulin Ratio 1.1 (1.1-1.8) Triglycerides (35-160) mg/dL Cholesterol (130-200) mg/dL LDL Cholesterol Direct (0-129) mg/dL HDL Cholesterol (29-60) mg/dL Urine Color (YELLOW) Urine Appearance (CLEAR) Urine pH (4.7-8.0) Ur Specific [place] (1.005-1.035) Urine Protein (<30 mg/dL) mg/dL Urine Glucose (UA) (NEGATIVE) mg/dL Urine Ketones (NEGATIVE) mg/dL Urine Blood (NEGATIVE) Urine Nitrate (NEGATIVE) Urine Bilirubin (NEGATIVE) Urine Urobilinogen (<1 E.U./dL) E.U./dL Ur Leukocyte Esterase (NEGATIVE) [place]/uL Urine RBC (0-2) /hpf Urine WBC (0-6) /hpf Ur Epithelial Cells (0-5) /hpf Urine Bacteria (NEG) Urine Other Urine Osmolality (300-1000) mosm/kg Ur Random Sodium meq/L 03/01/18 Range/Units 16:53 WBC (4.5-11.0) 10^3/ul RBC (3.5-6.1) 10^6/uL Hgb (14.0-18.0) g/dL Hct (42.0-52.0) % MCV (80.0-105.0) fl MCH (25.0-35.0) pg MCHC (31.0-37.0) g/dl RDW (11.5-14.5) % Plt Count (120.0-450.0) 10^3/uL MPV (7.0-11.0) fl Gran % (50.0-68.0) % Lymph % (Auto) (22.0-35.0) % [place] % (Auto) (1.0-6.0) % Eos % (Auto) (1.5-5.0) % Baso % (Auto) (0.0-3.0) % Gran # (1.4-6.5) Lymph # (Auto) (1.2-3.4) [place] # (Auto) (0.1-0.6) Eos # (Auto) (0.0-0.7) Baso # (Auto) (0.0-2.0) K/mm3 Sodium 108 L* (132-148) mmol/L Potassium 4.1 (3.6-5.0) mmol/L Chloride 75 L (98-107) mmol/L Carbon Dioxide 24 (21-33) mmol/L Anion Gap 14 (10-20) BUN 22 H (7-21) mg/dL Creatinine 1.4 (0.8-1.5) mg/dl Est GFR ( Amer) 60 Est GFR (Non-Af Amer) 49 POC Glucose (mg/dL) (65-110) mg/dL Random Glucose 124 H (70-110) mg/dL Hemoglobin A1c (4.2-6.5) % Uric Acid (3.5-8.5) mg/dL Calcium 7.9 L (8.4-10.5) mg/dL Phosphorus (2.5-4.5) mg/dL Magnesium (1.7-2.2) mg/dL Iron (45-180) ug/dL TIBC (261-462) ug/dL % Saturation (20-55) % Total Bilirubin (0.2-1.3) mg/dL AST (17-59) U/L ALT (7-56) U/L Alkaline Phosphatase (38-126) U/L Total Protein (5.8-8.3) g/dL Albumin (3.0-4.8) g/dL Globulin gm/dL Albumin/Globulin Ratio (1.1-1.8) Triglycerides (35-160) mg/dL Cholesterol (130-200) mg/dL LDL Cholesterol Direct (0-129) mg/dL HDL Cholesterol (29-60) mg/dL Urine Color (YELLOW) Urine Appearance (CLEAR) Urine pH (4.7-8.0) Ur Specific [place] (1.005-1.035) Urine Protein (<30 mg/dL) mg/dL Urine Glucose (UA) (NEGATIVE) mg/dL Urine Ketones (NEGATIVE) mg/dL Urine Blood (NEGATIVE) Urine Nitrate (NEGATIVE) Urine Bilirubin (NEGATIVE) Urine Urobilinogen (<1 E.U./dL) E.U./dL Ur Leukocyte Esterase (NEGATIVE) [place]/uL Urine RBC (0-2) /hpf Urine WBC (0-6) /hpf Ur Epithelial Cells (0-5) /hpf Urine Bacteria (NEG) Urine Other Urine Osmolality (300-1000) mosm/kg Ur Random Sodium meq/L Laboratory Results - last 24 hr 03/01/18 03/01/18 03/01/18 16:53 21:07 22:57 WBC RBC Hgb Hct MCV MCH MCHC RDW Plt Count MPV Gran % Lymph % (Auto) [place] % (Auto) Eos % (Auto) Baso % (Auto) Gran # Lymph # (Auto) [place] # (Auto) Eos # (Auto) Baso # (Auto) Sodium 108 L* 112 L* Potassium 4.1 4.0 Chloride 75 L 81 L Carbon Dioxide 24 20 L Anion Gap 14 14 BUN 22 H 22 H Creatinine 1.4 1.5 Est GFR ( Amer) 60 55 Est GFR (Non-Af Amer) 49 46 POC Glucose (mg/dL) 103 Random Glucose 124 H 93 Hemoglobin A1c Uric Acid 5.5 Calcium 7.9 L 8.3 L Phosphorus 2.8 Magnesium 1.8 Iron TIBC % Saturation Total Bilirubin 0.7 AST 43 ALT 24 Alkaline Phosphatase 81 Total Protein 6.2 Albumin 3.2 Globulin 2.9 Albumin/Globulin Ratio 1.1 Triglycerides Cholesterol LDL Cholesterol Direct HDL Cholesterol Urine Color Urine Appearance Urine pH Ur Specific [place] Urine Protein Urine Glucose (UA) Urine Ketones Urine Blood Urine Nitrate Urine Bilirubin Urine Urobilinogen Ur Leukocyte Esterase Urine RBC Urine WBC Ur Epithelial Cells Urine Bacteria Urine Other Urine Osmolality Ur Random Sodium 03/01/18 03/02/18 03/02/18 23:45 00:25 00:45 WBC 8.3 D RBC 3.59 Hgb 11.6 L Hct 31.6 L MCV 88.0 MCH 32.3 MCHC 36.7 RDW 12.8 Plt Count 310 MPV 8.9 Gran % 63.7 Lymph % (Auto) 23.0 [place] % (Auto) 11.3 H Eos % (Auto) 1.9 Baso % (Auto) 0.1 Gran # 5.25 Lymph # (Auto) 1.9 [place] # (Auto) 0.9 H Eos # (Auto) 0.2 Baso # (Auto) 0.01 Sodium Potassium Chloride Carbon Dioxide Anion Gap BUN Creatinine Est GFR ( Amer) Est GFR (Non-Af Amer) POC Glucose (mg/dL) Random Glucose Hemoglobin A1c Uric Acid Calcium Phosphorus Magnesium Iron TIBC % Saturation Total Bilirubin AST ALT Alkaline Phosphatase Total Protein Albumin Globulin Albumin/Globulin Ratio Triglycerides Cholesterol LDL Cholesterol Direct HDL Cholesterol Urine Color Straw Urine Appearance Sl cloudy Urine pH 6.0 Ur Specific [place] <= 1.005 Urine Protein 30 H Urine Glucose (UA) Negative Urine Ketones Negative Urine Blood Trace-lysed H Urine Nitrate Negative Urine Bilirubin Negative Urine Urobilinogen 0.2 Ur Leukocyte Esterase Negative Urine RBC 0 - 2 Urine WBC Negative Ur Epithelial Cells 3 - 4 Urine Bacteria Mod Urine Other Mucus Urine Osmolality 127 L Ur Random Sodium 16 03/02/18 03/02/18 03/02/18 05:20 05:20 05:20 WBC RBC Hgb Hct MCV MCH MCHC RDW Plt Count MPV Gran % Lymph % (Auto) [place] % (Auto) Eos % (Auto) Baso % (Auto) Gran # Lymph # (Auto) [place] # (Auto) Eos # (Auto) Baso # (Auto) Sodium 116 L* Potassium 3.9 Chloride 81 L Carbon Dioxide 26 Anion Gap 13 BUN 23 H Creatinine 1.7 H Est GFR ( Amer) 48 Est GFR (Non-Af Amer) 39 POC Glucose (mg/dL) Random Glucose 89 Hemoglobin A1c 6.6 H Uric Acid Calcium 8.2 L Phosphorus Magnesium Iron 45 TIBC 250 L % Saturation 18 L Total Bilirubin 0.7 AST 43 ALT 39 Alkaline Phosphatase 76 Total Protein 5.9 Albumin 3.1 Globulin 2.8 Albumin/Globulin Ratio 1.1 Triglycerides 157 Cholesterol 103 L LDL Cholesterol Direct 50 HDL Cholesterol 27 L Urine Color Urine Appearance Urine pH Ur Specific [place] Urine Protein Urine Glucose (UA) Urine Ketones Urine Blood Urine Nitrate Urine Bilirubin Urine Urobilinogen Ur Leukocyte Esterase Urine RBC Urine WBC Ur Epithelial Cells Urine Bacteria Urine Other Urine Osmolality Ur Random Sodium 03/02/18 11:10 WBC RBC Hgb Hct MCV MCH MCHC RDW Plt Count MPV Gran % Lymph % (Auto) [place] % (Auto) Eos % (Auto) Baso % (Auto) Gran # Lymph # (Auto) [place] # (Auto) Eos # (Auto) Baso # (Auto) Sodium Potassium Chloride Carbon Dioxide Anion Gap BUN Creatinine Est GFR ( Amer) Est GFR (Non-Af Amer) POC Glucose (mg/dL) 175 H Random Glucose Hemoglobin A1c Uric Acid Calcium Phosphorus Magnesium Iron TIBC % Saturation Total Bilirubin AST ALT Alkaline Phosphatase Total Protein Albumin Globulin Albumin/Globulin Ratio Triglycerides Cholesterol LDL Cholesterol Direct HDL Cholesterol Urine Color Urine Appearance Urine pH Ur Specific [place] Urine Protein Urine Glucose (UA) Urine Ketones Urine Blood Urine Nitrate Urine Bilirubin Urine Urobilinogen Ur Leukocyte Esterase Urine RBC Urine WBC Ur Epithelial Cells Urine Bacteria Urine Other Urine Osmolality Ur Random Sodium Critical Care Progress Note - Nutrition Nutrition: Nutrition Category Date Time Status Heart Healthy Diet [DIET] Diets 03/02/18 Breakfast Active Assessment/Plan - Assessment and Plan (Free Text) Assessment: Patient seen and examined on rounds with resident, agree with note with following additions/exceptions: Patient is 78yo male with PMhx of Renal Ca with mets, HTN, presented with severe hyponatremia, asymptomatic. Currently afebrile, HD stable, comfortable in NAD Labs, imaging , chart reviewed Renal following Na 106-->-->116, given DDAVP, Free water Repeat na pending Hyponatremia HTN Renal CA with mets Recommend: - supp o2 as needed - NO ID issues - BP control - monitor Na q6hr - goal correction of Na 6-8 meq/24hr - follow up renal - BP control - FS control - GI ppx - DVT ppx - Monitor in MICU
--- NOTE | 2018-03-02 11:15 | CT ---
Date of service: 03/01/2018 PROCEDURE: CT Chest without contrast HISTORY: abdom. pain with hyponatremia, hx. lung Ca COMPARISON: None available. TECHNIQUE: Contiguous axial images were obtained through the chest without intravenous contrast enhancement. Sagittal and coronal reconstructions were performed. Radiation dose (DLP): 864 mGy-cm. This CT exam was performed using one or more of the following dose reduction techniques: Automated exposure control, adjustment of the mA and/or kV according to patient size, and/or use of iterative reconstruction technique. FINDINGS: LUNGS: Multiple pulmonary nodules are seen the majority of which are less than 5 mm in size. There is a 17 mm nodule at the right lung base. This can be seen on image 68 of series 3. MEDIASTINUM: Unremarkable thoracic aorta. No aneurysm. Normal sized heart. Main pulmonary artery unremarkable. No vascular congestion. No lymphadenopathy. PLEURA: No pleural fluid. No pneumothorax. BONES: No fracture. No destructive lesion. UPPER ABDOMEN: Right-sided nephrolithiasis with largest stone measuring 9 mm. Previous left nephrectomy. Gallstone. OTHER FINDINGS: The report concurs with the preliminary [facility] report IMPRESSION: Multiple pulmonary nodules are seen the majority of which are less than 5 mm in size. There is a 17 mm nodule at the right lung base.
[2018-03-02] MEDS: Insulin Reg-LOW-Coverage SC SCH ×3 (11:38→21:55)
[2018-03-02 13:03] LABS: CALCIUM 7.2 mg/dL (8.4-10.5)
[2018-03-02 13:34] LABS: FOLATE 14.1 ng/mL
[2018-03-02] MEDS ORDERED: Benzocaine/Menthol (Cepacol) Lozenge MT PRN (15:09)
[2018-03-02] MEDS ORDERED: Sodium Chloride 3% 500 ML IV SCH (19:00)
[2018-03-02 19:59] LABS: CALCIUM 7.6 mg/dL (8.4-10.5)
[2018-03-03] MEDS ORDERED: Sodium Chloride 3% 500 ML IV SCH ×3 (04:59→23:53)
--- NOTE | 2018-03-03 06:31 | HP ---
date 03/02/18 Copied To: Guillermina Garcia MD Attending MD: Guillermina Garcia MD CHIEF COMPLAINT: GI problem. HISTORY OF PRESENT ILLNESS: Mr. Gilberto Robert is a 78-year-old male with past medical history of lung cancer and diabetes mellitus, came to the emergency room with family members complaining of nauseousness, vomiting, diarrhea for days. The patient has noted right-sided chest pain for 1 day. The patient saw his PMD 2 days ago, who prescribed Zofran, Lomotil, Protonix, without significant relief of symptoms. The patient stated that he has chronic shortness of breath and mild left abdominal pain. Denies fever, chills. No hematuria or hematochezia. PAST MEDICAL HISTORY: Hypertension, lung cancer, diabetes mellitus type 2, kidney CA, lung CA. FAMILY HISTORY: Father and mother, noncontributory. HABITS: Former smoker. No alcohol. No substance abuse. ALLERGIES: THE PATIENT IS NOT ALLERGIC WITH ANY MEDICATIONS. HOME MEDICATIONS: Glipizide, metformin, multivitamins, lisinopril, amlodipine, pazopanib. REVIEW OF SYSTEMS: The patient was seen and examined on the bedside. Looking comfortable. No fatigue. No weight change. No fever. No chills. No night sweats. No chest pains at this moment. Having abdominal pain, diarrhea, nauseousness and vomiting. Denies rectal bleeding. No hematochezia. No hematemesis. Skin normal. Neurologically, feeling dizziness, weak, unstable on the gait. PHYSICAL EXAMINATION: VITAL SIGNS: Temperature 97.8, pulse 73, respiratory rate 18, blood pressure 120/84, pulse oximetry 99. HEENT: Head normocephalic, atraumatic. Eyes PERRLA. Extraocular muscles intact. Conjunctivae clear. Nose patent. Mucous membrane moist. NECK: Supple. No carotid bruit. No JVD or thyromegaly. CHEST: Bilaterally symmetrical. HEART: S1 and S2 positive. Normal. No murmur. LUNGS: Clear to auscultation. Good air exchange. No respiratory distress. Using accessory muscles. ABDOMEN: No tenderness. No distention. EXTREMITIES: No cyanosis. No edema. NEUROLOGICAL: The patient is awake and alert. Moving all 4 extremities. No focal deficits. LABORATORY DATA: White blood cells 11, hemoglobin 11.5, hematocrit 30.8, platelets 390. Sodium 105, potassium 4.5, BUN 22, creatinine 1.3, glucose 151. ASSESSMENT AND PLAN: Mr. Gilberto Robert is a 78-year-old male with anemia, severe hyponatremia, hypokalemia, hypochloremia, hyperglycemia, came with diarrhea, nausea, vomiting. Rule out gastroenteritis. Seen by the boating safety officer, Dr. Ajay Muniz. Decompensation, not worsening, prerenal state, with history hypertension, metastatic renal cell carcinoma, status post left nephrectomy. The patient has actually vomiting, decreased p.o. intake causing prerenal azotemia, hyponatremia most likely consistent with volume depletion. Urine sodium also consistent with volume depletion. The patient is given gentle IV hydration, got desmopressin. Correcting hyponatremia gradually. Avoid nephrotoxic agent. Seen by Dr. Nico Garza. CAT scan of the chest and head done. Chest x-ray done. CAT scan of the abdomen and pelvis done, reviewed by me. Meanwhile, continue present treatment. Repeat labs. We will follow up. Guillermina Garcia MD JERMAN
[2018-03-03 07:13] LABS: MEAN CELL VOLUME 88.5 fl (80.0-105.0); MEAN CORPUSCULAR HEMOGLOBIN 31.5 pg (25.0-35.0); MEAN CORPUSCULAR HGB CONC 35.6 g/dl (31.0-37.0); MEAN PLATELET VOLUME 9.1 fl (7.0-11.0); RBC 3.49 10^6/uL (3.5-6.1); RED CELL DISTRIBUTION WIDTH 12.8 % (11.5-14.5); WHITE BLOOD COUNT 10.1 10^3/ul (4.5-11.0)
[2018-03-03 07:48] LABS: CALCIUM 8.1 mg/dL (8.4-10.5)
[2018-03-03] MEDS: Insulin Reg-LOW-Coverage SC SCH ×4 (08:39→22:45)
[2018-03-03] MEDS: Famotidine 20mg/50ml 20 MG/50 ML BAG IVPB SCH (09:33)
[2018-03-03] MEDS: Enoxaparin 30 mg Syringe SC SCH (09:34)
--- NOTE | 2018-03-03 09:50 | CP.PCM.PN ---
<Anton Floyd - Last Filed: 03/03/18 11:45> Subjective - Date & Time of Evaluation Date of Evaluation: 03/10/18 Time of Evaluation: 09:00 - Subjective Subjective: Anton Floyd- Internal Medicine Resident- Nephrology Progress Note on Behalf of Dr. Muniz Subjective: Patient seen and examined at bedside. Resting comfortably in bed. No acute overnight events. Admits to feeling nauseous this morning with no bouts of emesis. Denies fever, chills, chest pain, shortness of breath, abdominal pain, constipation, and urinary symptoms. 12-point review of systems negative except as indicated in the HPI Physical Examination: - Constitutional Appears: No Acute Distress - Head Exam Head Exam: NORMAL INSPECTION - ENT Exam ENT Exam: Dry Mucus Membranes - Respiratory Exam Respiratory Exam: no accessory muscle use, NORMAL BREATHING PATTERN - Cardiovascular Exam Cardiovascular Exam: REGULAR RHYTHM, +S1, +S2 - GI/Abdominal Exam GI & Abdominal Exam: Soft, no guarding, no rebound tenderness - Extremities Exam Extremities Exam: no clubbing, no cyanosis - Neurological Exam Neurological Exam: Alert, Awake, Responds to verbal stimuli, answers questions, follows commands - Psychiatric Exam Psychiatric exam: Normal Affect - Skin Skin Exam: dry and warm Assessment and Plan: Patient is a 78 year old male with a past medical history of renal cell carcinoma s/p nephrectomy with lung metastases, diabetes, and hypertension who was admitted for evaluation and treatment of dizziness, nausea, and diarrhea. The nephrology team was consulted for management of the patient's severe hyponatremia. Severe Hyponatremia - serum sodium reviewed and trending- 112 from 110 (105 on admission 03/01/18 at ~1200) - serum sodium levels increasing at appropriate rate - correction goal 0.25mEq/hr- 0.50mEq/hr (6meq-8meq/ 24 hour period- prevent osmotic demyelination syndrome) - patient is s/p 2 mcg x 2 of DDAVP - c/w 3% NS @ 20cc/hr - repeat urine sodium and urine osmolality ordered and pending - continue to follow serial BMPs Chronic Kidney Disease Stage 3b - BUN and creatinine reviewed and trended- BUN in low 30s and creatinine increased to 1.9 from 2.1 - avoid nephrotoxic agents, hold home HCTZ/Lisinopril - will consider renal US pending serum nitrogen product trend Hx of Hypertension - Blood pressures reviewed and trended- 100/50s - keep MAPs > 65mmHg - hold home antihypertensives at this time Thank you for the opportunity to participate in the care of this patient. Patient seen, case discussed with, and plan approved by attending physician, Dr. Muniz. Objective - Vital Signs/Intake and Output Vital Signs (last 24 hours): Temp Pulse Resp BP Pulse Ox 98.5 F 66 24 100/52 L 99 03/01/18 18:00 03/03/18 06:00 03/02/18 17:10 03/02/18 17:00 03/02/18 17:30 Intake and Output: 03/03/18 03/03/18 06:59 18:59 Intake Total 190 Output Total 300 Balance -110 - Medications Medications: Current Medications Acetaminophen (Tylenol 325mg Tab) 650 mg PO Q6H PRN PRN Reason: Temperature Benzocaine/Menthol (Cepacol Sore Throat) 1 jimenez MT Q2H PRN PRN Reason: Sore Throat Last Admin: 03/02/18 15:25 Dose: 1 jimenez Enoxaparin Sodium (Lovenox) 30 mg SC DAILY MAURA PRN Reason: Protocol Last Admin: 03/03/18 09:34 Dose: 30 mg Sodium Chloride (Hypertonic Saline 3%) 500 mls @ 20 mls/hr IV .Q24H MAURA Last Admin: 03/03/18 05:15 Dose: 20 mls/hr Famotidine (Pepcid 20mg/50ml Premix) 20 mg in 50 mls @ 100 mls/hr IVPB DAILY MAURA Last Admin: 03/03/18 09:33 Dose: 100 mls/hr Insulin Human Regular (Humulin R Low) 0 units SC ACHS MAURA PRN Reason: Protocol Last Admin: 03/03/18 08:39 Dose: Not Given Ondansetron HCl (Zofran Inj) 4 mg IVP Q4H PRN PRN Reason: Nausea/Vomiting Last Admin: 03/03/18 08:42 Dose: 4 mg - Labs Labs: 03/03/18 06:00 03/03/18 06:00 PT 12.8 SECONDS (9.4-12.5) H 03/01/18 12:05 INR 1.11 03/01/18 12:05 APTT 26.3 Seconds (25.1-36.5) 03/01/18 12:05 <Ajay Muniz - Last Filed: 03/04/18 00:08> Objective - Vital Signs/Intake and Output Vital Signs (last 24 hours): Temp Pulse Resp BP Pulse Ox 98.5 F 67 19 113/56 L 100 03/01/18 18:00 03/03/18 22:20 03/03/18 22:20 03/03/18 20:21 03/03/18 22:20 Intake and Output: 03/03/18 03/04/18 18:59 06:59 Intake Total 740 Balance 740 - Medications Medications: Current Medications Acetaminophen (Tylenol 325mg Tab) 650 mg PO Q6H PRN PRN Reason: Temperature Benzocaine/Menthol (Cepacol Sore Throat) 1 jimenez MT Q2H PRN PRN Reason: Sore Throat Last Admin: 03/02/18 15:25 Dose: 1 jimenez Enoxaparin Sodium (Lovenox) 30 mg SC DAILY MAURA PRN Reason: Protocol Last Admin: 03/03/18 09:34 Dose: 30 mg Famotidine (Pepcid 20mg/50ml Premix) 20 mg in 50 mls @ 100 mls/hr IVPB DAILY MAURA Last Admin: 03/03/18 09:33 Dose: 100 mls/hr Sodium Chloride (Hypertonic Saline 3%) 500 mls @ 20 mls/hr IV .Q24H MAURA Insulin Human Regular (Humulin R Low) 0 units SC ACHS MAURA PRN Reason: Protocol Last Admin: 03/03/18 22:45 Dose: Not Given Ondansetron HCl (Zofran Inj) 4 mg IVP Q4H PRN PRN Reason: Nausea/Vomiting Last Admin: 03/03/18 08:42 Dose: 4 mg - Labs Labs: 03/03/18 06:00 03/03/18 20:30 PT 12.8 SECONDS (9.4-12.5) H 03/01/18 12:05 INR 1.11 03/01/18 12:05 APTT 26.3 Seconds (25.1-36.5) 03/01/18 12:05 Attending/Attestation - Attestation I have personally seen and examined this patient.: Yes I have fully participated in the care of the patient.: Yes I have reviewed all pertinent clinical information, including history, physical exam and plan: Yes Notes (Text): Patient seen and examined; I agree with the resident's note as above with the following edits/additions: Patient with metastatic renal cell Ca admitted with severe hyponatremia in the setting of decreased PO intake, vomiting and diuretic use; Started on hypertonic 3% saline yesterday after being given desmopressin earlier in the day to prevent sudden rise in serum Na; serum Na has been rising slowly since then; goal is still 6-8 meq rise over 24 hr period; unfortunately, urine osm has been difficult to obtain in order to guide us as to whether the effect of desmopressin has worn off; we would like to keep urine osm high with desmopressin and continue hypertonic saline to achieve gradual correction of hyponatremia; Patient also suspected to have some degree of volume depletion and pre-renal ZEINA which should correct with IVF; -Continue to monitor BMP and Ur osm q4h as well as urine output; if any sudden increase in serum Na, marked drop in Ur osm or rapid increase in urine output, should give another dose of desmopressin to prevent serum Na from increasing further; -Continue to hold anti-htn meds;
--- NOTE | 2018-03-03 11:35 | CP.CCUPN ---
<Indra Norris - Last Filed: 03/03/18 11:32> CCU Subjective - Physician Review Events Since Last Encounter (Free Text): 03/03/18 11:32 Patient seen and examined at bedside. No acute overnight events - patient tolerating his breakfast this am with mild nausea. CCU Objective - Vital Signs / Intake & Output Vital Signs (Last 4 hours): Vital Signs Pulse Resp BP Pulse Ox 03/03/18 10:10 66 25 H 97 03/03/18 10:00 69 17 133/59 L 97 03/03/18 09:50 69 17 98 03/03/18 09:40 70 23 98 03/03/18 09:30 65 20 97 03/03/18 09:20 68 25 H 98 03/03/18 09:10 67 22 99 03/03/18 09:00 67 31 H 149/55 L 98 03/03/18 08:50 71 21 97 03/03/18 08:40 70 38 H 96 03/03/18 08:30 64 18 96 03/03/18 08:20 68 20 97 03/03/18 08:10 75 35 H 97 03/03/18 08:00 67 18 132/70 97 03/03/18 07:50 66 17 97 03/03/18 07:40 66 18 97 Intake and Output (Last 8hrs): Intake & Output 03/02/18 03/03/18 03/03/18 22:59 06:59 14:59 Intake Total 190 Output Total 1 300 Balance -1 -110 Intake: IV 190 Left Antecubital 190 Output: Urine 300 Condom 300 Stool 1 - Physical Exam Head: Positive for: Atraumatic, Normocephalic Pupils: Positive for: PERRL Extroacular Muscles: Positive for: EOMI Conjunctiva: Positive for: Normal Mouth: Positive for: Moist Mucous Membranes Neck: Positive for: Normal Range of Motion Respiratory/Chest: Positive for: Clear to Auscultation, Good Air Exchange. Negative for: Respiratory Distress, Accessory Muscle Use Cardiovascular: Positive for: Regular Rate and Rhythm, Normal S1, S2. Negative for: Murmurs Abdomen: Negative for: Tenderness, Distention, Peritoneal Signs Back: Positive for: Normal Inspection Upper Extremity: Positive for: Normal Inspection. Negative for: Cyanosis, Edema Lower Extremity: Positive for: Normal Inspection. Negative for: Edema Neurological: Positive for: GCS=15, CN II-XII Intact, Speech Normal, Motor Func Grossly Intact, Normal Sensory Function, Normal Cerebellar Funct Skin: Positive for: Warm, Dry, Normal Color. Negative for: Rashes Psychiatric: Positive for: Alert, Oriented x 3, Normal Insight, Normal Concentration - Medications Active Medications: Active Medications Generic Name Dose Route Start Last Admin Trade Name Freq PRN Reason Stop Dose Admin Acetaminophen 650 mg 03/01/18 18:45 Tylenol 325mg Tab PO Q6H PRN Temperature Benzocaine/Menthol 1 [email or web address] 03/02/18 15:09 03/02/18 15:25 Cepacol Sore Throat MT 1 [email or web address] Q2H PRN Administration Sore Throat Enoxaparin Sodium 30 mg 03/03/18 10:00 03/03/18 09:34 Lovenox SC 30 mg DAILY MAURA Administration Protocol Sodium Chloride 500 mls @ 20 mls/hr 03/03/18 04:59 03/03/18 05:15 Hypertonic Saline 3% IV 20 mls/hr .Q24H MAURA Administration Famotidine 20 mg in 50 mls @ 100 mls/hr 03/03/18 08:02 03/03/18 09:33 Pepcid 20mg/50ml Premix IVPB 100 mls/hr DAILY MAURA Administration Insulin Human Regular 0 units 03/02/18 11:30 03/03/18 08:39 Humulin R Low SC Not Given ACHS MAURA Protocol Ondansetron HCl 4 mg 03/01/18 18:45 03/03/18 08:42 Zofran Inj IVP 4 mg Q4H PRN Administration Nausea/Vomiting - Patient Studies Lab Studies: Lab Studies 03/03/18 03/03/18 03/03/18 Range/Units 07:56 06:00 06:00 WBC (4.5-11.0) 10^3/ul RBC (3.5-6.1) 10^6/uL Hgb (14.0-18.0) g/dL Hct (42.0-52.0) % MCV (80.0-105.0) fl MCH (25.0-35.0) pg MCHC (31.0-37.0) g/dl RDW (11.5-14.5) % Plt Count (120.0-450.0) 10^3/uL MPV (7.0-11.0) fl Sodium 112 L* (132-148) mmol/L Potassium 4.1 (3.6-5.0) mmol/L Chloride 80 L (98-107) mmol/L Carbon Dioxide 23 (21-33) mmol/L Anion Gap 13 (10-20) BUN 31 H (7-21) mg/dL Creatinine 1.9 H (0.8-1.5) mg/dl Est GFR ( Amer) 42 Est GFR (Non-Af Amer) 35 POC Glucose (mg/dL) 120 H (65-110) mg/dL Random Glucose 95 (70-110) mg/dL Hemoglobin A1c (4.2-6.5) % Calcium 8.1 L (8.4-10.5) mg/dL Vitamin B12 (239-931) pg/mL Folate ng/mL TSH 3rd Generation 1.87 (0.46-4.68) mIU/mL 03/03/18 03/03/18 03/02/18 Range/Units 06:00 00:30 21:51 WBC 10.1 D (4.5-11.0) 10^3/ul RBC 3.49 L (3.5-6.1) 10^6/uL Hgb 11.0 L (14.0-18.0) g/dL Hct 30.9 L (42.0-52.0) % MCV 88.5 (80.0-105.0) fl MCH 31.5 (25.0-35.0) pg MCHC 35.6 (31.0-37.0) g/dl RDW 12.8 (11.5-14.5) % Plt Count 321 (120.0-450.0) 10^3/uL MPV 9.1 (7.0-11.0) fl Sodium 110 L* (132-148) mmol/L Potassium 4.2 (3.6-5.0) mmol/L Chloride 77 L (98-107) mmol/L Carbon Dioxide 25 (21-33) mmol/L Anion Gap 12 (10-20) BUN 31 H (7-21) mg/dL Creatinine 2.1 H (0.8-1.5) mg/dl Est GFR ( Amer) 37 Est GFR (Non-Af Amer) 31 POC Glucose (mg/dL) 172 H (65-110) mg/dL Random Glucose 109 (70-110) mg/dL Hemoglobin A1c (4.2-6.5) % Calcium 8.0 L (8.4-10.5) mg/dL Vitamin B12 (239-931) pg/mL Folate ng/mL TSH 3rd Generation (0.46-4.68) mIU/mL 03/02/18 03/02/18 03/02/18 Range/Units 19:23 16:21 12:30 WBC (4.5-11.0) 10^3/ul RBC (3.5-6.1) 10^6/uL Hgb (14.0-18.0) g/dL Hct (42.0-52.0) % MCV (80.0-105.0) fl MCH (25.0-35.0) pg MCHC (31.0-37.0) g/dl RDW (11.5-14.5) % Plt Count (120.0-450.0) 10^3/uL MPV (7.0-11.0) fl Sodium 110 L* 107 L* (132-148) mmol/L Potassium 4.4 3.8 (3.6-5.0) mmol/L Chloride 77 L 80 L (98-107) mmol/L Carbon Dioxide 23 17 L (21-33) mmol/L Anion Gap 15 15 (10-20) BUN 29 H 24 H (7-21) mg/dL Creatinine 2.0 H 1.6 H (0.8-1.5) mg/dl Est GFR ( Amer) 40 51 Est GFR (Non-Af Amer) 33 42 POC Glucose (mg/dL) 213 H (65-110) mg/dL Random Glucose 178 H 345 H* D (70-110) mg/dL Hemoglobin A1c (4.2-6.5) % Calcium 7.6 L 7.2 L (8.4-10.5) mg/dL Vitamin B12 (239-931) pg/mL Folate ng/mL TSH 3rd Generation (0.46-4.68) mIU/mL 03/02/18 03/02/18 Range/Units 05:20 05:20 WBC (4.5-11.0) 10^3/ul RBC (3.5-6.1) 10^6/uL Hgb (14.0-18.0) g/dL Hct (42.0-52.0) % MCV (80.0-105.0) fl MCH (25.0-35.0) pg MCHC (31.0-37.0) g/dl RDW (11.5-14.5) % Plt Count (120.0-450.0) 10^3/uL MPV (7.0-11.0) fl Sodium (132-148) mmol/L Potassium (3.6-5.0) mmol/L Chloride (98-107) mmol/L Carbon Dioxide (21-33) mmol/L Anion Gap (10-20) BUN (7-21) mg/dL Creatinine (0.8-1.5) mg/dl Est GFR ( Amer) Est GFR (Non-Af Amer) POC Glucose (mg/dL) (65-110) mg/dL Random Glucose (70-110) mg/dL Hemoglobin A1c 6.6 H (4.2-6.5) % Calcium (8.4-10.5) mg/dL Vitamin B12 384 (239-931) pg/mL Folate 14.1 ng/mL TSH 3rd Generation (0.46-4.68) mIU/mL Laboratory Results - last 24 hr 03/02/18 03/02/18 03/02/18 05:20 05:20 12:30 WBC RBC Hgb Hct MCV MCH MCHC RDW Plt Count MPV Sodium 107 L* Potassium 3.8 Chloride 80 L Carbon Dioxide 17 L Anion Gap 15 BUN 24 H Creatinine 1.6 H Est GFR ( Amer) 51 Est GFR (Non-Af Amer) 42 POC Glucose (mg/dL) Random Glucose 345 H* D Hemoglobin A1c 6.6 H Calcium 7.2 L Vitamin B12 384 Folate 14.1 TSH 3rd Generation 03/02/18 03/02/18 03/02/18 16:21 19:23 21:51 WBC RBC Hgb Hct MCV MCH MCHC RDW Plt Count MPV Sodium 110 L* Potassium 4.4 Chloride 77 L Carbon Dioxide 23 Anion Gap 15 BUN 29 H Creatinine 2.0 H Est GFR ( Amer) 40 Est GFR (Non-Af Amer) 33 POC Glucose (mg/dL) 213 H 172 H Random Glucose 178 H Hemoglobin A1c Calcium 7.6 L Vitamin B12 Folate TSH 3rd Generation 03/03/18 03/03/18 03/03/18 00:30 06:00 06:00 WBC 10.1 D RBC 3.49 L Hgb 11.0 L Hct 30.9 L MCV 88.5 MCH 31.5 MCHC 35.6 RDW 12.8 Plt Count 321 MPV 9.1 Sodium 110 L* 112 L* Potassium 4.2 4.1 Chloride 77 L 80 L Carbon Dioxide 25 23 Anion Gap 12 13 BUN 31 H 31 H Creatinine 2.1 H 1.9 H Est GFR ( Amer) 37 42 Est GFR (Non-Af Amer) 31 35 POC Glucose (mg/dL) Random Glucose 109 95 Hemoglobin A1c Calcium 8.0 L 8.1 L Vitamin B12 Folate TSH 3rd Generation 03/03/18 03/03/18 06:00 07:56 WBC RBC Hgb Hct MCV MCH MCHC RDW Plt Count MPV Sodium Potassium Chloride Carbon Dioxide Anion Gap BUN Creatinine Est GFR ( Amer) Est GFR (Non-Af Amer) POC Glucose (mg/dL) 120 H Random Glucose Hemoglobin A1c Calcium Vitamin B12 Folate TSH 3rd Generation 1.87 Fingerstick Blood Sugar Results: 120 Critical Care Progress Note - Nutrition Nutrition: Nutrition Category Date Time Status Heart Healthy Diet [DIET] Diets 03/02/18 Breakfast Active Assessment/Plan - Assessment and Plan (Free Text) Assessment: 78 year old male under ICU management for hypontremia, from sodium of 106 to sodium of 116 right now. Hx Lung CA Hx Renal CA Hx HTN Patient was started on NS @ 100 mls/hr, and his sodium corrected to 112 overnight, 116 right now. Patient should be correcting at 6-8 units per 24 hour period. Patient has over-corrected slightly, so DDAVP was given by renal team. Patient's CR continues trending upward, at 1.9 today, indicating that the hyponatremia is most likely hypovolemic 2/2 poor po intake of hydration. Plan Neuro: - Maintain normothermia - DDAVP for over-correction Pulm: - Maintain O2 sats > 92% - C/w home pazopanib for CA Cardio: - Maintain MAP > 65 - Patient is normotensive right now, hold home HTN meds GI: - Continue GI PPx with pepcid; Zofran PRN for nausea - HHD : - DDAVP to avoid over-correction of Na - Start hypertonic saline - At this time, giving DDAVP with hypertonic saline will allow for slow correction of patient's hyponatremia. DDAVP will replace the intrinsic ADH, because when patient gets fluids, his intrinsic ADH will decrease due to influx of fluids. Thus, adding DDAVP with the hypertonic saline will allow for slow correction by giving hypertonic fluids and not losing free water rapidly. - Maintain euvolemia ID: - No acute ID issues Endo: - Maintain euglycemia 140-180 - Hold home oral antihyperglycemic Heme: - SCD's for DVT PPX <Norbert Cao - Last Filed: 03/03/18 12:22> CCU Objective - Vital Signs / Intake & Output Vital Signs (Last 4 hours): Vital Signs Pulse Resp BP Pulse Ox 03/03/18 10:10 66 25 H 97 03/03/18 10:00 69 17 133/59 L 97 03/03/18 09:50 69 17 98 03/03/18 09:40 70 23 98 03/03/18 09:30 65 20 97 03/03/18 09:20 68 25 H 98 03/03/18 09:10 67 22 99 03/03/18 09:00 67 31 H 149/55 L 98 03/03/18 08:50 71 21 97 03/03/18 08:40 70 38 H 96 03/03/18 08:30 64 18 96 Intake and Output (Last 8hrs): Intake & Output 03/02/18 03/03/18 03/03/18 22:59 06:59 14:59 Intake Total 190 Output Total 1 300 Balance -1 -110 Intake: IV 190 Left Antecubital 190 Output: Urine 300 Condom 300 Stool 1 - Medications Active Medications: Active Medications Generic Name Dose Route Start Last Admin Trade Name Freq PRN Reason Stop Dose Admin Acetaminophen 650 mg 03/01/18 18:45 Tylenol 325mg Tab PO Q6H PRN Temperature Benzocaine/Menthol 1 [email or web address] 03/02/18 15:09 03/02/18 15:25 Cepacol Sore Throat MT 1 jimenez Q2H PRN Administration Sore Throat Enoxaparin Sodium 30 mg 03/03/18 10:00 03/03/18 09:34 Lovenox SC 30 mg DAILY MAURA Administration Protocol Sodium Chloride 500 mls @ 20 mls/hr 03/03/18 04:59 03/03/18 05:15 Hypertonic Saline 3% IV 20 mls/hr .Q24H MAURA Administration Famotidine 20 mg in 50 mls @ 100 mls/hr 03/03/18 08:02 03/03/18 09:33 Pepcid 20mg/50ml Premix IVPB 100 mls/hr DAILY MAURA Administration Insulin Human Regular 0 units 03/02/18 11:30 03/03/18 08:39 Humulin R Low SC Not Given ACHS MAURA Protocol Ondansetron HCl 4 mg 03/01/18 18:45 03/03/18 08:42 Zofran Inj IVP 4 mg Q4H PRN Administration Nausea/Vomiting - Patient Studies Lab Studies: Lab Studies 03/03/18 03/03/18 03/03/18 Range/Units 11:38 11:30 07:56 WBC (4.5-11.0) 10^3/ul RBC (3.5-6.1) 10^6/uL Hgb (14.0-18.0) g/dL Hct (42.0-52.0) % MCV (80.0-105.0) fl MCH (25.0-35.0) pg MCHC (31.0-37.0) g/dl RDW (11.5-14.5) % Plt Count (120.0-450.0) 10^3/uL MPV (7.0-11.0) fl Sodium 113 L* (132-148) mmol/L Potassium 3.9 (3.6-5.0) mmol/L Chloride 83 L (98-107) mmol/L Carbon Dioxide 20 L (21-33) mmol/L Anion Gap 13 (10-20) BUN 29 H (7-21) mg/dL Creatinine 1.9 H (0.8-1.5) mg/dl Est GFR ( Amer) 42 Est GFR (Non-Af Amer) 35 POC Glucose (mg/dL) 219 H 120 H (65-110) mg/dL Random Glucose 203 H (70-110) mg/dL Calcium 7.6 L (8.4-10.5) mg/dL Vitamin B12 (239-931) pg/mL Folate ng/mL TSH 3rd Generation (0.46-4.68) mIU/mL 03/03/18 03/03/18 03/03/18 Range/Units 06:00 06:00 06:00 WBC 10.1 D (4.5-11.0) 10^3/ul RBC 3.49 L (3.5-6.1) 10^6/uL Hgb 11.0 L (14.0-18.0) g/dL Hct 30.9 L (42.0-52.0) % MCV 88.5 (80.0-105.0) fl MCH 31.5 (25.0-35.0) pg MCHC 35.6 (31.0-37.0) g/dl RDW 12.8 (11.5-14.5) % Plt Count 321 (120.0-450.0) 10^3/uL MPV 9.1 (7.0-11.0) fl Sodium 112 L* (132-148) mmol/L Potassium 4.1 (3.6-5.0) mmol/L Chloride 80 L (98-107) mmol/L Carbon Dioxide 23 (21-33) mmol/L Anion Gap 13 (10-20) BUN 31 H (7-21) mg/dL Creatinine 1.9 H (0.8-1.5) mg/dl Est GFR ( Amer) 42 Est GFR (Non-Af Amer) 35 POC Glucose (mg/dL) (65-110) mg/dL Random Glucose 95 (70-110) mg/dL Calcium 8.1 L (8.4-10.5) mg/dL Vitamin B12 (239-931) pg/mL Folate ng/mL TSH 3rd Generation 1.87 (0.46-4.68) mIU/mL 03/03/18 03/02/18 03/02/18 Range/Units 00:30 21:51 19:23 WBC (4.5-11.0) 10^3/ul RBC (3.5-6.1) 10^6/uL Hgb (14.0-18.0) g/dL Hct (42.0-52.0) % MCV (80.0-105.0) fl MCH (25.0-35.0) pg MCHC (31.0-37.0) g/dl RDW (11.5-14.5) % Plt Count (120.0-450.0) 10^3/uL MPV (7.0-11.0) fl Sodium 110 L* 110 L* (132-148) mmol/L Potassium 4.2 4.4 (3.6-5.0) mmol/L Chloride 77 L 77 L (98-107) mmol/L Carbon Dioxide 25 23 (21-33) mmol/L Anion Gap 12 15 (10-20) BUN 31 H 29 H (7-21) mg/dL Creatinine 2.1 H 2.0 H (0.8-1.5) mg/dl Est GFR ( Amer) 37 40 Est GFR (Non-Af Amer) 31 33 POC Glucose (mg/dL) 172 H (65-110) mg/dL Random Glucose 109 178 H (70-110) mg/dL Calcium 8.0 L 7.6 L (8.4-10.5) mg/dL Vitamin B12 (239-931) pg/mL Folate ng/mL TSH 3rd Generation (0.46-4.68) mIU/mL 03/02/18 03/02/18 03/02/18 Range/Units 16:21 12:30 05:20 WBC (4.5-11.0) 10^3/ul RBC (3.5-6.1) 10^6/uL Hgb (14.0-18.0) g/dL Hct (42.0-52.0) % MCV (80.0-105.0) fl MCH (25.0-35.0) pg MCHC (31.0-37.0) g/dl RDW (11.5-14.5) % Plt Count (120.0-450.0) 10^3/uL MPV (7.0-11.0) fl Sodium 107 L* (132-148) mmol/L Potassium 3.8 (3.6-5.0) mmol/L Chloride 80 L (98-107) mmol/L Carbon Dioxide 17 L (21-33) mmol/L Anion Gap 15 (10-20) BUN 24 H (7-21) mg/dL Creatinine 1.6 H (0.8-1.5) mg/dl Est GFR ( Amer) 51 Est GFR (Non-Af Amer) 42 POC Glucose (mg/dL) 213 H (65-110) mg/dL Random Glucose 345 H* D (70-110) mg/dL Calcium 7.2 L (8.4-10.5) mg/dL Vitamin B12 384 (239-931) pg/mL Folate 14.1 ng/mL TSH 3rd Generation (0.46-4.68) mIU/mL Laboratory Results - last 24 hr 03/02/18 03/02/18 03/02/18 05:20 12:30 16:21 WBC RBC Hgb Hct MCV MCH MCHC RDW Plt Count MPV Sodium 107 L* Potassium 3.8 Chloride 80 L Carbon Dioxide 17 L Anion Gap 15 BUN 24 H Creatinine 1.6 H Est GFR ( Amer) 51 Est GFR (Non-Af Amer) 42 POC Glucose (mg/dL) 213 H Random Glucose 345 H* D Calcium 7.2 L Vitamin B12 384 Folate 14.1 TSH 3rd Generation 03/02/18 03/02/18 03/03/18 19:23 21:51 00:30 WBC RBC Hgb Hct MCV MCH MCHC RDW Plt Count MPV Sodium 110 L* 110 L* Potassium 4.4 4.2 Chloride 77 L 77 L Carbon Dioxide 23 25 Anion Gap 15 12 BUN 29 H 31 H Creatinine 2.0 H 2.1 H Est GFR ( Amer) 40 37 Est GFR (Non-Af Amer) 33 31 POC Glucose (mg/dL) 172 H Random Glucose 178 H 109 Calcium 7.6 L 8.0 L Vitamin B12 Folate TSH 3rd Generation 03/03/18 03/03/18 03/03/18 06:00 06:00 06:00 WBC 10.1 D RBC 3.49 L Hgb 11.0 L Hct 30.9 L MCV 88.5 MCH 31.5 MCHC 35.6 RDW 12.8 Plt Count 321 MPV 9.1 Sodium 112 L* Potassium 4.1 Chloride 80 L Carbon Dioxide 23 Anion Gap 13 BUN 31 H Creatinine 1.9 H Est GFR ( Amer) 42 Est GFR (Non-Af Amer) 35 POC Glucose (mg/dL) Random Glucose 95 Calcium 8.1 L Vitamin B12 Folate TSH 3rd Generation 1.87 03/03/18 03/03/18 03/03/18 07:56 11:30 11:38 WBC RBC Hgb Hct MCV MCH MCHC RDW Plt Count MPV Sodium 113 L* Potassium 3.9 Chloride 83 L Carbon Dioxide 20 L Anion Gap 13 BUN 29 H Creatinine 1.9 H Est GFR ( Amer) 42 Est GFR (Non-Af Amer) 35 POC Glucose (mg/dL) 120 H 219 H Random Glucose 203 H Calcium 7.6 L Vitamin B12 Folate TSH 3rd Generation Critical Care Progress Note - Nutrition Nutrition: Nutrition Category Date Time Status Heart Healthy Diet [DIET] Diets 03/02/18 Breakfast Active Assessment/Plan - Assessment and Plan (Free Text) Assessment: Patient seen and examined on rounds with resident, agree with note with following additions/exceptions: Patient is 78yo male with PMhx of Renal Ca with mets, HTN, presented with severe hyponatremia, asymptomatic. Currently afebrile, HD stable, comfortable in NAD Labs, imaging , chart reviewed Renal following Na 106-->-->116, given DDAVP, Free water, Na 112, on 3% saline currently Hyponatremia HTN Renal CA with mets Recommend: - supp o2 as needed - NO ID issues - BP control - monitor Na q6hr - goal correction of Na 6-8 meq/24hr - follow up renal, 3% as per renal - BP control - FS control - GI ppx - DVT ppx - Monitor in MICU
[2018-03-03 12:11] LABS: CALCIUM 7.6 mg/dL (8.4-10.5)
[2018-03-03 16:34] LABS: CALCIUM 7.4 mg/dL (8.4-10.5)
--- NOTE | 2018-03-03 19:09 | PN ---
Copied To: Guillermina Garcia MD Attending MD: Guillermina Garcia MD DATE: 03/03/2018 SUBJECTIVE: The patient was seen and examined in the unit, looking comfortable. No events happened overnight. Sometimes feeling nauseous, but no diarrhea or vomiting. No fever, no chills, no hematuria, no hematochezia. REVIEW OF SYSTEMS: A 12-point review of systems is negative except indicated above. PHYSICAL EXAMINATION: VITAL SIGNS: Temperature 98.6, pulse 66, blood pressure 133/59, and respiratory rate is 25. HEENT: Head: Normocephalic, atraumatic. Eyes: PERRLA. Extraocular muscles are intact. Conjunctivae are clear. Nose patent. Mucous membranes are moist. NECK: Supple. No carotid bruit. No JVD or thyromegaly. CHEST: Bilaterally symmetrical. HEART: S1 and S2 positive. LUNGS: Clear to auscultation. ABDOMEN: Soft, bowel sounds present. No organomegaly. EXTREMITIES: No edema. No cyanosis. NEUROLOGIC: The patient is awake and alert. Moving all four extremities. No focal deficit. MEDICATIONS: Cepacol lozenges, insulin, hypertonic saline, Lovenox, Pepcid, Tylenol, Zofran. LABORATORY DATA: White blood cell 10.1, hemoglobin 11, hematocrit 30.9, and platelets 321. Sodium 113, on admission it was 105; potassium 3.8, chloride 80, BUN 24, creatinine 1.6, glucose 213, calcium 8.2, hemoglobin A1c 6.6. ASSESSMENT AND PLAN: Mr. Gilberto Robert is a 78-year-old male with anemia, hyponatremia, hypochloremia, renal insufficiency, uncontrolled diabetes mellitus, insulin requiring, hemoglobin A1c is 6.6; hypocalcemia; iron deficiency; proteinuria, hematuria is in the unit; history of hypertension; lung cancer; kidney cancer; lung cancer, have lung nodules required Pulmonary and Oncology consult; status post nephrectomy; hypertension. [place] [employer] is controlling the management of hyponatremia; history of chronic kidney disease, stage IIIB, discussed done with nurse practitionerMarie. Continue present treatment. Repeat labs. We will follow up. Guillermina Garcia MD
[2018-03-03 20:57] LABS: CALCIUM 7.9 mg/dL (8.4-10.5)
[2018-03-04 00:40] LABS: CALCIUM 8.4 mg/dL (8.4-10.5)
[2018-03-04 03:47] LABS: CALCIUM 8.4 mg/dL (8.4-10.5)
[2018-03-04] MEDS ORDERED: Sodium Chloride 3% 500 ML IV SCH ×5 (06:27→23:16)
[2018-03-04 07:45] LABS: CALCIUM 8.5 mg/dL (8.4-10.5)
[2018-03-04] MEDS: Insulin Reg-LOW-Coverage SC SCH ×4 (08:10→22:30)
[2018-03-04] MEDS: Famotidine 20mg/50ml 20 MG/50 ML BAG IVPB SCH (09:24)
[2018-03-04] MEDS: Enoxaparin 30 mg Syringe SC SCH (09:25)
[2018-03-04 11:39] LABS: CALCIUM 8.3 mg/dL (8.4-10.5)
--- NOTE | 2018-03-04 12:25 | CP.CCUPN ---
<Indra Norris - Last Filed: 03/04/18 12:13> CCU Subjective - Physician Review Events Since Last Encounter (Free Text): 03/04/18 12:14 Patient seen and examined at bedside. No acute overnight events. Patient is tolerating po diet well, Denies any new complaints CCU Objective - Vital Signs / Intake & Output Vital Signs (Last 4 hours): Vital Signs Pulse Resp BP Pulse Ox 03/04/18 10:02 136/73 100 03/04/18 10:00 99 03/04/18 09:50 82 98 03/04/18 09:40 77 21 99 03/04/18 09:30 79 28 H 99 03/04/18 09:20 79 17 100 03/04/18 09:14 78 21 149/78 99 03/04/18 09:10 74 17 97 03/04/18 09:00 80 26 H 100 03/04/18 08:50 76 21 97 03/04/18 08:40 98 03/04/18 08:34 99 03/04/18 08:20 98 03/04/18 08:16 96 Intake and Output (Last 8hrs): Intake & Output 03/03/18 03/04/18 03/04/18 22:59 06:59 14:59 Intake Total 740 190 300 Output Total 825 400 Balance 740 -635 -100 Intake: IV 240 190 100 3%S 240 190 50 Left Antecubital 50 Oral 500 200 Output: Urine 825 400 Condom 825 400 - Physical Exam Head: Positive for: Atraumatic, Normocephalic Pupils: Positive for: PERRL Extroacular Muscles: Positive for: EOMI Conjunctiva: Positive for: Normal Mouth: Positive for: Moist Mucous Membranes Neck: Positive for: Normal Range of Motion Respiratory/Chest: Positive for: Clear to Auscultation, Good Air Exchange. Negative for: Respiratory Distress, Accessory Muscle Use Cardiovascular: Positive for: Regular Rate and Rhythm, Normal S1, S2. Negative for: Murmurs Abdomen: Negative for: Tenderness, Distention, Peritoneal Signs Back: Positive for: Normal Inspection Upper Extremity: Positive for: Normal Inspection. Negative for: Cyanosis, Edema Lower Extremity: Positive for: Normal Inspection. Negative for: Edema Neurological: Positive for: GCS=15, CN II-XII Intact, Speech Normal, Motor Func Grossly Intact, Normal Sensory Function, Normal Cerebellar Funct Skin: Positive for: Warm, Dry, Normal Color. Negative for: Rashes Psychiatric: Positive for: Alert, Oriented x 3, Normal Insight, Normal Concentration - Medications Active Medications: Active Medications Generic Name Dose Route Start Last Admin Trade Name Freq PRN Reason Stop Dose Admin Acetaminophen 650 mg 03/01/18 18:45 Tylenol 325mg Tab PO Q6H PRN Temperature Amlodipine Besylate 10 mg 03/04/18 10:00 Norvasc PO DAILY MAURA Benzocaine/Menthol 1 jimenez 03/02/18 15:09 03/02/18 15:25 Cepacol Sore Throat MT 1 jimenez Q2H PRN Administration Sore Throat Enoxaparin Sodium 30 mg 03/03/18 10:00 03/04/18 09:25 Lovenox SC 30 mg DAILY MAURA Administration Protocol Famotidine 20 mg in 50 mls @ 100 mls/hr 03/03/18 08:02 03/04/18 09:24 Pepcid 20mg/50ml Premix IVPB 100 mls/hr DAILY MAURA Administration Sodium Chloride 500 mls @ 25 mls/hr 03/04/18 06:27 03/04/18 06:48 Hypertonic Saline 3% IV 25 mls/hr .Q20H MAURA Administration Insulin Human Regular 0 units 03/02/18 11:30 03/04/18 12:10 Humulin R Low SC Not Given ACHS MAURA Protocol Ondansetron HCl 4 mg 03/01/18 18:45 03/03/18 08:42 Zofran Inj IVP 4 mg Q4H PRN Administration Nausea/Vomiting - Patient Studies Lab Studies: Microbiology Studies 03/01/18 16:30 MRSA Culture (Admit) - Final Nose MRSA NOT DETECTED Lab Studies 03/04/18 03/04/18 03/04/18 Range/Units 11:42 11:20 07:55 Sodium 121 L (132-148) mmol/L Potassium 4.3 (3.6-5.0) mmol/L Chloride 90 L (98-107) mmol/L Carbon Dioxide 23 (21-33) mmol/L Anion Gap 13 (10-20) BUN 27 H (7-21) mg/dL Creatinine 1.7 H (0.8-1.5) mg/dl Est GFR ( Amer) 48 Est GFR (Non-Af Amer) 39 POC Glucose (mg/dL) 145 H 139 H (65-110) mg/dL Random Glucose 142 H (70-110) mg/dL Calcium 8.3 L (8.4-10.5) mg/dL Urine Osmolality (300-1000) mosm/kg Ur Random Creatinine (20-370) mg/dL U Random Total Protein (22-128) mg/g creat Ur Random Sodium meq/L Urine Total Volume mg/dL Microalb/Creat Ratio (<30) 03/04/18 03/04/18 03/03/18 Range/Units 07:00 03:07 23:30 Sodium 121 L 119 L* 118 L* (132-148) mmol/L Potassium 4.4 4.4 4.5 (3.6-5.0) mmol/L Chloride 88 L 86 L 83 L (98-107) mmol/L Carbon Dioxide 24 24 25 (21-33) mmol/L Anion Gap 14 13 15 (10-20) BUN 27 H 29 H 30 H (7-21) mg/dL Creatinine 1.9 H 1.9 H 2.0 H (0.8-1.5) mg/dl Est GFR ( Amer) 42 42 40 Est GFR (Non-Af Amer) 35 35 33 POC Glucose (mg/dL) (65-110) mg/dL Random Glucose 130 H 110 96 (70-110) mg/dL Calcium 8.5 8.4 8.4 (8.4-10.5) mg/dL Urine Osmolality (300-1000) mosm/kg Ur Random Creatinine (20-370) mg/dL U Random Total Protein (22-128) mg/g creat Ur Random Sodium meq/L Urine Total Volume mg/dL Microalb/Creat Ratio (<30) 03/03/18 03/03/18 03/03/18 Range/Units 22:05 22:00 20:30 Sodium 117 L* (132-148) mmol/L Potassium 4.3 (3.6-5.0) mmol/L Chloride 83 L (98-107) mmol/L Carbon Dioxide 23 (21-33) mmol/L Anion Gap 15 (10-20) BUN 30 H (7-21) mg/dL Creatinine 2.0 H (0.8-1.5) mg/dl Est GFR ( Amer) 40 Est GFR (Non-Af Amer) 33 POC Glucose (mg/dL) 136 H (65-110) mg/dL Random Glucose 153 H (70-110) mg/dL Calcium 7.9 L (8.4-10.5) mg/dL Urine Osmolality 338 (300-1000) mosm/kg Ur Random Creatinine (20-370) mg/dL U Random Total Protein (22-128) mg/g creat Ur Random Sodium meq/L Urine Total Volume mg/dL Microalb/Creat Ratio (<30) 03/03/18 03/03/18 03/03/18 Range/Units 17:14 16:21 12:31 Sodium 116 L* (132-148) mmol/L Potassium 5.0 (3.6-5.0) mmol/L Chloride 80 L (98-107) mmol/L Carbon Dioxide 20 L (21-33) mmol/L Anion Gap 21 H (10-20) BUN 30 H (7-21) mg/dL Creatinine 1.9 H (0.8-1.5) mg/dl Est GFR ( Amer) 42 Est GFR (Non-Af Amer) 35 POC Glucose (mg/dL) 365 H (65-110) mg/dL Random Glucose 150 H (70-110) mg/dL Calcium 7.4 L (8.4-10.5) mg/dL Urine Osmolality 407 (300-1000) mosm/kg Ur Random Creatinine (20-370) mg/dL U Random Total Protein (22-128) mg/g creat Ur Random Sodium meq/L Urine Total Volume mg/dL Microalb/Creat Ratio (<30) 03/03/18 03/03/18 03/03/18 Range/Units 12:30 00:30 00:30 Sodium (132-148) mmol/L Potassium (3.6-5.0) mmol/L Chloride (98-107) mmol/L Carbon Dioxide (21-33) mmol/L Anion Gap (10-20) BUN (7-21) mg/dL Creatinine (0.8-1.5) mg/dl Est GFR ( Amer) Est GFR (Non-Af Amer) POC Glucose (mg/dL) (65-110) mg/dL Random Glucose (70-110) mg/dL Calcium (8.4-10.5) mg/dL Urine Osmolality (300-1000) mosm/kg Ur Random Creatinine 169 (20-370) mg/dL U Random Total Protein 1327 H (22-128) mg/g creat Ur Random Sodium 35 meq/L Urine Total Volume 117.5 mg/dL Microalb/Creat Ratio 696 H (<30) Laboratory Results - last 24 hr 03/03/18 03/03/18 03/03/18 00:30 00:30 12:30 Sodium Potassium Chloride Carbon Dioxide Anion Gap BUN Creatinine Est GFR ( Amer) Est GFR (Non-Af Amer) POC Glucose (mg/dL) Random Glucose Calcium Urine Osmolality Ur Random Creatinine 169 U Random Total Protein 1327 H Ur Random Sodium 35 Urine Total Volume 117.5 Microalb/Creat Ratio 696 H 03/03/18 03/03/18 03/03/18 12:31 16:21 17:14 Sodium 116 L* Potassium 5.0 Chloride 80 L Carbon Dioxide 20 L Anion Gap 21 H BUN 30 H Creatinine 1.9 H Est GFR ( Amer) 42 Est GFR (Non-Af Amer) 35 POC Glucose (mg/dL) 365 H Random Glucose 150 H Calcium 7.4 L Urine Osmolality 407 Ur Random Creatinine U Random Total Protein Ur Random Sodium Urine Total Volume Microalb/Creat Ratio 03/03/18 03/03/18 03/03/18 20:30 22:00 22:05 Sodium 117 L* Potassium 4.3 Chloride 83 L Carbon Dioxide 23 Anion Gap 15 BUN 30 H Creatinine 2.0 H Est GFR ( Amer) 40 Est GFR (Non-Af Amer) 33 POC Glucose (mg/dL) 136 H Random Glucose 153 H Calcium 7.9 L Urine Osmolality 338 Ur Random Creatinine U Random Total Protein Ur Random Sodium Urine Total Volume Microalb/Creat Ratio 03/03/18 03/04/18 03/04/18 23:30 03:07 07:00 Sodium 118 L* 119 L* 121 L Potassium 4.5 4.4 4.4 Chloride 83 L 86 L 88 L Carbon Dioxide 25 24 24 Anion Gap 15 13 14 BUN 30 H 29 H 27 H Creatinine 2.0 H 1.9 H 1.9 H Est GFR ( Amer) 40 42 42 Est GFR (Non-Af Amer) 33 35 35 POC Glucose (mg/dL) Random Glucose 96 110 130 H Calcium 8.4 8.4 8.5 Urine Osmolality Ur Random Creatinine U Random Total Protein Ur Random Sodium Urine Total Volume Microalb/Creat Ratio 03/04/18 03/04/18 03/04/18 07:55 11:20 11:42 Sodium 121 L Potassium 4.3 Chloride 90 L Carbon Dioxide 23 Anion Gap 13 BUN 27 H Creatinine 1.7 H Est GFR ( Amer) 48 Est GFR (Non-Af Amer) 39 POC Glucose (mg/dL) 139 H 145 H Random Glucose 142 H Calcium 8.3 L Urine Osmolality Ur Random Creatinine U Random Total Protein Ur Random Sodium Urine Total Volume Microalb/Creat Ratio Fingerstick Blood Sugar Results: 145 Critical Care Progress Note - Nutrition Nutrition: Nutrition Category Date Time Status Heart Healthy Diet [DIET] Diets 03/02/18 Breakfast Active Assessment/Plan - Assessment and Plan (Free Text) Assessment: 78 year old male under ICU management for hypontremia, from sodium of 106 to sodium of 116 right now. Acute Kidney Injury Hx Lung CA Hx Renal CA Hx HTN Patient was started on NS @ 100 mls/hr, and his sodium corrected to 112 overnight, 116 right now. Patient should be correcting at 6-8 units per 24 hour period. Patient has over-corrected slightly, so DDAVP was given by renal team. Patient's CR continues trending upward, at 1.9 today, indicating that the hyponatremia is most likely hypovolemic 2/2 poor po intake of hydration. Patient is also having an ZEINA with CR slowly bumping up. It is unclear what the etiology of this is - no nephrotoxic agents have been started in the hospital, free water deficit is being repleted, and po intake has improved. Patient has history of Renal CA, but his CR was normal on admission; patient has a hx of diabetic nephropathy (based on chart review), but once again, CR was normal on admission. Plan Neuro: - Maintain normothermia - DDAVP for over-correction Pulm: - Maintain O2 sats > 92% - C/w home pazopanib for CA Cardio: - Maintain MAP > 65 - Patient's bp creeping up, restart home norvasc 10 GI: - Continue GI PPx with pepcid; Zofran PRN for nausea - HHD : - ZEINA, unknown etiology right now - DDAVP to avoid over-correction of Na - Start hypertonic saline - At this time, giving DDAVP with hypertonic saline will allow for slow correction of patient's hyponatremia. DDAVP will replace the intrinsic ADH, because when patient gets fluids, his intrinsic ADH will decrease due to influx of fluids. Thus, adding DDAVP with the hypertonic saline will allow for slow correction by giving hypertonic fluids and not losing free water rapidly - Maintain euvolemia ID: - No acute ID issues Endo: - Maintain euglycemia 140-180 - Hold home oral antihyperglycemic Heme: - SCD's for DVT PPX <Fermin,Bilal - Last Filed: 03/04/18 16:07> CCU Objective - Vital Signs / Intake & Output Vital Signs (Last 4 hours): Vital Signs Pulse Resp BP Pulse Ox 03/04/18 15:20 71 98 03/04/18 15:10 68 19 99 03/04/18 15:00 69 18 135/66 99 03/04/18 14:50 72 100 03/04/18 14:40 104 H 83 H 96 03/04/18 14:30 74 19 99 03/04/18 14:20 68 18 100 03/04/18 14:10 77 22 100 03/04/18 14:00 71 39 H 148/78 100 03/04/18 13:50 73 17 100 03/04/18 13:40 74 23 100 03/04/18 13:30 80 24 100 03/04/18 13:20 76 23 99 03/04/18 13:11 73 22 144/38 L 99 03/04/18 13:10 78 144/38 L 98 03/04/18 13:00 69 30 H 99 03/04/18 12:50 31 H 100 03/04/18 12:40 19 100 03/04/18 12:30 20 98 03/04/18 12:21 71 03/04/18 12:20 77 16 99 03/04/18 12:10 81 15 99 Intake and Output (Last 8hrs): Intake & Output 03/04/18 03/04/18 03/04/18 06:59 14:59 22:59 Intake Total 190 300 Output Total 825 400 Balance -635 -100 Intake: IV 190 100 3%S 190 50 Left Antecubital 50 Oral 200 Output: Urine 825 400 Condom 825 400 - Medications Active Medications: Active Medications Generic Name Dose Route Start Last Admin Trade Name Freq PRN Reason Stop Dose Admin Acetaminophen 650 mg 03/01/18 18:45 Tylenol 325mg Tab PO Q6H PRN Temperature Amlodipine Besylate 10 mg 03/04/18 10:00 03/04/18 13:10 Norvasc PO 10 mg DAILY MAURA Administration Benzocaine/Menthol 1 jimenez 03/02/18 15:09 03/02/18 15:25 Cepacol Sore Throat MT 1 jimenez Q2H PRN Administration Sore Throat Enoxaparin Sodium 30 mg 03/03/18 10:00 03/04/18 09:25 Lovenox SC 30 mg DAILY MAURA Administration Protocol Famotidine 20 mg 03/05/18 10:00 Pepcid PO DAILY MAURA Sodium Chloride 500 mls @ 30 mls/hr 03/04/18 13:42 03/04/18 14:45 Hypertonic Saline 3% IV 30 mls/hr .[id number] MAURA Administration Insulin Human Regular 0 units 03/02/18 11:30 03/04/18 12:10 Humulin R Low SC Not Given ACHS MAURA Protocol Ondansetron HCl 4 mg 03/01/18 18:45 03/03/18 08:42 Zofran Inj IVP 4 mg Q4H PRN Administration Nausea/Vomiting - Patient Studies Lab Studies: Microbiology Studies 03/01/18 16:30 MRSA Culture (Admit) - Final Nose MRSA NOT DETECTED Lab Studies 03/04/18 03/04/18 03/04/18 Range/Units 11:42 11:20 07:55 Sodium 121 L (132-148) mmol/L Potassium 4.3 (3.6-5.0) mmol/L Chloride 90 L (98-107) mmol/L Carbon Dioxide 23 (21-33) mmol/L Anion Gap 13 (10-20) BUN 27 H (7-21) mg/dL Creatinine 1.7 H (0.8-1.5) mg/dl Est GFR ( Amer) 48 Est GFR (Non-Af Amer) 39 POC Glucose (mg/dL) 145 H 139 H (65-110) mg/dL Random Glucose 142 H (70-110) mg/dL Calcium 8.3 L (8.4-10.5) mg/dL Urine Osmolality (300-1000) mosm/kg Ur Random Creatinine (20-370) mg/dL U Random Total Protein (22-128) mg/g creat Ur Random Sodium meq/L Urine Total Volume mg/dL Microalb/Creat Ratio (<30) 03/04/18 03/04/18 03/03/18 Range/Units 07:00 03:07 23:30 Sodium 121 L 119 L* 118 L* (132-148) mmol/L Potassium 4.4 4.4 4.5 (3.6-5.0) mmol/L Chloride 88 L 86 L 83 L (98-107) mmol/L Carbon Dioxide 24 24 25 (21-33) mmol/L Anion Gap 14 13 15 (10-20) BUN 27 H 29 H 30 H (7-21) mg/dL Creatinine 1.9 H 1.9 H 2.0 H (0.8-1.5) mg/dl Est GFR ( Amer) 42 42 40 Est GFR (Non-Af Amer) 35 35 33 POC Glucose (mg/dL) (65-110) mg/dL Random Glucose 130 H 110 96 (70-110) mg/dL Calcium 8.5 8.4 8.4 (8.4-10.5) mg/dL Urine Osmolality (300-1000) mosm/kg Ur Random Creatinine (20-370) mg/dL U Random Total Protein (22-128) mg/g creat Ur Random Sodium meq/L Urine Total Volume mg/dL Microalb/Creat Ratio (<30) 03/03/18 03/03/18 03/03/18 Range/Units 22:05 22:00 20:30 Sodium 117 L* (132-148) mmol/L Potassium 4.3 (3.6-5.0) mmol/L Chloride 83 L (98-107) mmol/L Carbon Dioxide 23 (21-33) mmol/L Anion Gap 15 (10-20) BUN 30 H (7-21) mg/dL Creatinine 2.0 H (0.8-1.5) mg/dl Est GFR ( Amer) 40 Est GFR (Non-Af Amer) 33 POC Glucose (mg/dL) 136 H (65-110) mg/dL Random Glucose 153 H (70-110) mg/dL Calcium 7.9 L (8.4-10.5) mg/dL Urine Osmolality 338 (300-1000) mosm/kg Ur Random Creatinine (20-370) mg/dL U Random Total Protein (22-128) mg/g creat Ur Random Sodium meq/L Urine Total Volume mg/dL Microalb/Creat Ratio (<30) 03/03/18 03/03/18 03/03/18 Range/Units 17:14 16:21 12:31 Sodium 116 L* (132-148) mmol/L Potassium 5.0 (3.6-5.0) mmol/L Chloride 80 L (98-107) mmol/L Carbon Dioxide 20 L (21-33) mmol/L Anion Gap 21 H (10-20) BUN 30 H (7-21) mg/dL Creatinine 1.9 H (0.8-1.5) mg/dl Est GFR ( Amer) 42 Est GFR (Non-Af Amer) 35 POC Glucose (mg/dL) 365 H (65-110) mg/dL Random Glucose 150 H (70-110) mg/dL Calcium 7.4 L (8.4-10.5) mg/dL Urine Osmolality 407 (300-1000) mosm/kg Ur Random Creatinine (20-370) mg/dL U Random Total Protein (22-128) mg/g creat Ur Random Sodium meq/L Urine Total Volume mg/dL Microalb/Creat Ratio (<30) 03/03/18 03/03/18 03/03/18 Range/Units 12:30 00:30 00:30 Sodium (132-148) mmol/L Potassium (3.6-5.0) mmol/L Chloride (98-107) mmol/L Carbon Dioxide (21-33) mmol/L Anion Gap (10-20) BUN (7-21) mg/dL Creatinine (0.8-1.5) mg/dl Est GFR ( Amer) Est GFR (Non-Af Amer) POC Glucose (mg/dL) (65-110) mg/dL Random Glucose (70-110) mg/dL Calcium (8.4-10.5) mg/dL Urine Osmolality (300-1000) mosm/kg Ur Random Creatinine 169 (20-370) mg/dL U Random Total Protein 1327 H (22-128) mg/g creat Ur Random Sodium 35 meq/L Urine Total Volume 117.5 mg/dL Microalb/Creat Ratio 696 H (<30) Laboratory Results - last 24 hr 03/03/18 03/03/18 03/03/18 00:30 00:30 12:30 Sodium Potassium Chloride Carbon Dioxide Anion Gap BUN Creatinine Est GFR ( Amer) Est GFR (Non-Af Amer) POC Glucose (mg/dL) Random Glucose Calcium Urine Osmolality Ur Random Creatinine 169 U Random Total Protein 1327 H Ur Random Sodium 35 Urine Total Volume 117.5 Microalb/Creat Ratio 696 H 03/03/18 03/03/18 03/03/18 12:31 16:21 17:14 Sodium 116 L* Potassium 5.0 Chloride 80 L Carbon Dioxide 20 L Anion Gap 21 H BUN 30 H Creatinine 1.9 H Est GFR ( Amer) 42 Est GFR (Non-Af Amer) 35 POC Glucose (mg/dL) 365 H Random Glucose 150 H Calcium 7.4 L Urine Osmolality 407 Ur Random Creatinine U Random Total Protein Ur Random Sodium Urine Total Volume Microalb/Creat Ratio 03/03/18 03/03/18 03/03/18 20:30 22:00 22:05 Sodium 117 L* Potassium 4.3 Chloride 83 L Carbon Dioxide 23 Anion Gap 15 BUN 30 H Creatinine 2.0 H Est GFR ( Amer) 40 Est GFR (Non-Af Amer) 33 POC Glucose (mg/dL) 136 H Random Glucose 153 H Calcium 7.9 L Urine Osmolality 338 Ur Random Creatinine U Random Total Protein Ur Random Sodium Urine Total Volume Microalb/Creat Ratio 03/03/18 03/04/18 03/04/18 23:30 03:07 07:00 Sodium 118 L* 119 L* 121 L Potassium 4.5 4.4 4.4 Chloride 83 L 86 L 88 L Carbon Dioxide 25 24 24 Anion Gap 15 13 14 BUN 30 H 29 H 27 H Creatinine 2.0 H 1.9 H 1.9 H Est GFR ( Amer) 40 42 42 Est GFR (Non-Af Amer) 33 35 35 POC Glucose (mg/dL) Random Glucose 96 110 130 H Calcium 8.4 8.4 8.5 Urine Osmolality Ur Random Creatinine U Random Total Protein Ur Random Sodium Urine Total Volume Microalb/Creat Ratio 03/04/18 03/04/18 03/04/18 07:55 11:20 11:42 Sodium 121 L Potassium 4.3 Chloride 90 L Carbon Dioxide 23 Anion Gap 13 BUN 27 H Creatinine 1.7 H Est GFR ( Amer) 48 Est GFR (Non-Af Amer) 39 POC Glucose (mg/dL) 139 H 145 H Random Glucose 142 H Calcium 8.3 L Urine Osmolality Ur Random Creatinine U Random Total Protein Ur Random Sodium Urine Total Volume Microalb/Creat Ratio Critical Care Progress Note - Nutrition Nutrition: Nutrition Category Date Time Status Heart Healthy Diet [DIET] Diets 03/02/18 Breakfast Active Addendum Addendum: 03/04/18 16:07 ICU Attending Addendum: Patient seen and examined. Case reviewed on round with housestaff. Agree with resident note above with the following additions/exceptions: 78yo male with PMhx of Renal Ca with mets and HTN presented being treated in the MICU for severe hyponatremia. Unclear etiology. Patient was having n/v which may have contributed to it. He is also worsened his renal function. For now, nephro managing sodium. Stable last 2 reading of 121 and 121. Still on 3% which has been increased. I wonder if they may be caused by his RCC chemo med (panapazib) also concern for his renal function - he is dumping protein as well nephrotic syndrome? trend BMP q 4 hours, with urine electrolytes q 4 hours as well. Rest of care as noted above. Susi Fermin MD Performance Management Consultant Critical care time : 35 mins
[2018-03-04 16:30] LABS: CALCIUM 8.1 mg/dL (8.4-10.5)
[2018-03-04 20:32] LABS: CALCIUM 8.5 mg/dL (8.4-10.5)
--- NOTE | 2018-03-04 23:17 | CP.PCM.PN ---
Subjective - Date & Time of Evaluation Date of Evaluation: 03/04/18 Time of Evaluation: 18:00 - Subjective Subjective: Patient reports feeling well; tolerating diet; no nausea/vomiting; denies shortness of breath; OOB to chair; Objective - Vital Signs/Intake and Output Vital Signs (last 24 hours): Temp Pulse Resp BP Pulse Ox 98.6 F 71 13 129/65 99 03/04/18 20:00 03/04/18 22:20 03/04/18 22:20 03/04/18 22:00 03/04/18 22:20 Intake and Output: 03/04/18 03/05/18 18:59 06:59 Intake Total 885 Output Total 750 Balance 135 - Medications Medications: Current Medications Acetaminophen (Tylenol 325mg Tab) 650 mg PO Q6H PRN PRN Reason: Temperature Amlodipine Besylate (Norvasc) 10 mg PO DAILY [facility] Last Admin: 03/04/18 13:10 Dose: 10 mg Benzocaine/Menthol (Cepacol Sore Throat) 1 jimenez MT Q2H PRN PRN Reason: Sore Throat Last Admin: 03/02/18 15:25 Dose: 1 jimenez Enoxaparin Sodium (Lovenox) 30 mg SC DAILY [facility] PRN Reason: Protocol Last Admin: 03/04/18 09:25 Dose: 30 mg Famotidine (Pepcid) 20 mg PO DAILY [facility] Haloperidol Lactate (Haldol) 2 mg IM Q6 PRN; Protocol PRN Reason: confusion/psychosis Sodium Chloride (Hypertonic Saline 3%) 500 mls @ 25 mls/hr IV .Q20H [facility] Insulin Human Regular (Humulin R Low) 0 units SC ACHS [facility] PRN Reason: Protocol Last Admin: 03/04/18 17:00 Dose: Not Given - Labs Labs: 03/03/18 06:00 03/04/18 20:15 PT 12.8 SECONDS (9.4-12.5) H 03/01/18 12:05 INR 1.11 03/01/18 12:05 APTT 26.3 Seconds (25.1-36.5) 03/01/18 12:05 - Constitutional Appears: Well, No Acute Distress - Eye Exam Eye Exam: Normal appearance - Respiratory Exam Respiratory Exam: Clear to Ausculation Bilateral. absent: Respiratory Distress - Cardiovascular Exam Cardiovascular Exam: RRR, +S1, +S2 - GI/Abdominal Exam GI & Abdominal Exam: Soft. absent: Distended, Tenderness - Extremities Exam Additional comments: mild b/l ankle edema; - Neurological Exam Neurological Exam: Alert, Awake - Psychiatric Exam Psychiatric exam: Normal Mood. absent: Agitated - Skin Skin Exam: Warm. absent: Cyanosis Assessment and Plan (1) Hyponatremia Assessment & Plan: Likely due to hypovolemia; serum Na improving gradually on hypertonic saline with rate being adusted to maintain goal rate of rise of 6-8 meq/24hrs; desmopressin again given today to avoid rapid correction of hyponatremia; -continue with 3% saline, now at 15 ml/hr; -continue to monitor serum Na and urine osm q6h (aiming to keep Ur osm > 400 with desmopressin until serum Na > 130); Status: Acute (2) ZEINA (acute kidney injury) Assessment & Plan: ZEINA on CKD; likely pre-renal etiology, will give more volume replenishment once serum Na > 130; Status: Acute (3) CKD (chronic kidney disease) Assessment & Plan: Proteinuric kidney disease, possibly due to DM but chemo med can also be contributory; will need to go back on BRIAN inhibitor once hyponatremia corrected; Status: Acute (4) HTN (hypertension) Assessment & Plan: BP mildly elevated, started back on amlodipine today; avoid giving further agents till patient's ZEINA resolved; Status: Acute
[2018-03-05 01:15] LABS: CALCIUM 8.2 mg/dL (8.4-10.5)
[2018-03-05 04:36] LABS: CALCIUM 8.3 mg/dL (8.4-10.5)
[2018-03-05] MEDS ORDERED: Sodium Chloride 3% 500 ML IV SCH ×2 (06:33→20:45)
--- NOTE | 2018-03-05 07:08 | CP.CCUPN ---
<Kraig Whitten - Last Filed: 03/05/18 10:31> CCU Subjective - Physician Review Subjective (Free Text): ICU Progress note - Ellie Whitten PGY3 Patient seen and examined at bedside this morning. No acute overnight events or new complaints reported. Patient is tolerating diet well. Denies chest pain, palpitations, SOB. CCU Objective - Vital Signs / Intake & Output Vital Signs (Last 4 hours): Vital Signs Temp Pulse Resp BP Pulse Ox 03/05/18 06:10 92 L 03/05/18 06:00 64 15 108/49 L 93 L 03/05/18 05:50 67 15 94 L 03/05/18 05:40 100 H 106 H 93 L 03/05/18 05:30 71 22 98 03/05/18 05:20 73 17 98 03/05/18 05:10 86 25 H 97 03/05/18 05:01 84 7 L 103/41 L 98 03/05/18 05:00 85 28 H 97 03/05/18 04:50 102 H 65 H 98 03/05/18 04:40 92 H 52 H 97 03/05/18 04:30 98 03/05/18 04:20 75 15 100 03/05/18 04:10 68 16 88 L 03/05/18 04:00 98 F 60 15 107/57 L 99 03/05/18 03:50 74 19 100 03/05/18 03:40 62 18 100 03/05/18 03:30 66 15 100 03/05/18 03:20 83 32 H 89 L 03/05/18 03:10 55 L 14 98 Intake and Output (Last 8hrs): Intake & Output 03/04/18 03/05/18 03/05/18 22:59 06:59 14:59 Intake Total 585 460 Output Total 350 600 Balance 235 -140 Intake: IV 285 260 3%S 145 260 Right Hand 140 Oral 300 200 Output: Urine 350 600 Condom 350 600 Other: # Bowel Movements 0 - Physical Exam Head: Positive for: Atraumatic, Normocephalic Pupils: Positive for: PERRL Extroacular Muscles: Positive for: EOMI Conjunctiva: Positive for: Normal Mouth: Positive for: Moist Mucous Membranes Neck: Positive for: Normal Range of Motion Respiratory/Chest: Positive for: Clear to Auscultation, Good Air Exchange. Negative for: Respiratory Distress, Accessory Muscle Use, Rales, Rhonchi Cardiovascular: Positive for: Regular Rate and Rhythm, Normal S1, S2. Negative for: Murmurs, Rub, Gallop Abdomen: Negative for: Tenderness, Distention, Peritoneal Signs, Rebound, Guarding Upper Extremity: Positive for: Normal Inspection. Negative for: Cyanosis, Edema Lower Extremity: Positive for: Normal Inspection. Negative for: Edema Neurological: Positive for: GCS=15, CN II-XII Intact, Speech Normal, Motor Func Grossly Intact, Normal Sensory Function Skin: Positive for: Warm, Dry, Normal Color. Negative for: Rashes Psychiatric: Positive for: Alert, Oriented x 3, Normal Insight, Normal Concentration - Medications Active Medications: Active Medications Generic Name Dose Route Start Last Admin Trade Name Freq PRN Reason Stop Dose Admin Acetaminophen 650 mg 03/01/18 18:45 Tylenol 325mg Tab PO Q6H PRN Temperature Amlodipine Besylate 10 mg 03/04/18 10:00 03/04/18 13:10 Norvasc PO 10 mg DAILY [facility] Administration Benzocaine/Menthol 1 jimenez 03/02/18 15:09 03/02/18 15:25 Cepacol Sore Throat MT 1 jimenez Q2H PRN Administration Sore Throat Enoxaparin Sodium 30 mg 03/03/18 10:00 03/04/18 09:25 Lovenox SC 30 mg DAILY [facility] Administration Protocol Famotidine 20 mg 03/05/18 10:00 Pepcid PO DAILY [facility] Haloperidol Lactate 2 mg 03/04/18 21:03 03/05/18 04:30 Haldol IM 2 mg Q6 PRN Administration confusion/psychosis Protocol Sodium Chloride 500 mls @ 20 mls/hr 03/05/18 06:33 Hypertonic Saline 3% IV .Q24H [facility] Insulin Human Regular 0 units 03/02/18 11:30 03/04/18 22:30 Humulin R Low SC Not Given ACHS [facility] Protocol - Patient Studies Lab Studies: Lab Studies 03/05/18 03/05/18 03/04/18 Range/Units 04:18 00:50 20:15 Sodium 128 L 125 L 125 L (132-148) mmol/L Potassium 4.7 4.8 4.6 (3.6-5.0) mmol/L Chloride 95 L 94 L 91 L (98-107) mmol/L Carbon Dioxide 25 22 24 (21-33) mmol/L Anion Gap 12 13 15 (10-20) BUN 27 H 29 H 29 H (7-21) mg/dL Creatinine 1.8 H 1.8 H 1.9 H (0.8-1.5) mg/dl Est GFR ( Amer) 45 45 42 Est GFR (Non-Af Amer) 37 37 35 POC Glucose (mg/dL) (65-110) mg/dL Random Glucose 79 97 139 H (70-110) mg/dL Calcium 8.3 L 8.2 L 8.5 (8.4-10.5) mg/dL Urine Osmolality (300-1000) mosm/kg Ur Random Creatinine (20-370) mg/dL U Random Total Protein (22-128) mg/g creat Urine Total Volume mg/dL Microalb/Creat Ratio (<30) 03/04/18 03/04/18 03/04/18 Range/Units 18:40 16:31 16:10 Sodium 125 L (132-148) mmol/L Potassium 4.5 (3.6-5.0) mmol/L Chloride 91 L (98-107) mmol/L Carbon Dioxide 26 (21-33) mmol/L Anion Gap 13 (10-20) BUN 27 H (7-21) mg/dL Creatinine 1.8 H (0.8-1.5) mg/dl Est GFR ( Amer) 45 Est GFR (Non-Af Amer) 37 POC Glucose (mg/dL) 115 H (65-110) mg/dL Random Glucose 110 (70-110) mg/dL Calcium 8.1 L (8.4-10.5) mg/dL Urine Osmolality 416 (300-1000) mosm/kg Ur Random Creatinine (20-370) mg/dL U Random Total Protein (22-128) mg/g creat Urine Total Volume mg/dL Microalb/Creat Ratio (<30) 03/04/18 03/04/18 03/04/18 Range/Units 11:42 11:20 07:55 Sodium 121 L (132-148) mmol/L Potassium 4.3 (3.6-5.0) mmol/L Chloride 90 L (98-107) mmol/L Carbon Dioxide 23 (21-33) mmol/L Anion Gap 13 (10-20) BUN 27 H (7-21) mg/dL Creatinine 1.7 H (0.8-1.5) mg/dl Est GFR ( Amer) 48 Est GFR (Non-Af Amer) 39 POC Glucose (mg/dL) 145 H 139 H (65-110) mg/dL Random Glucose 142 H (70-110) mg/dL Calcium 8.3 L (8.4-10.5) mg/dL Urine Osmolality (300-1000) mosm/kg Ur Random Creatinine (20-370) mg/dL U Random Total Protein (22-128) mg/g creat Urine Total Volume mg/dL Microalb/Creat Ratio (<30) 03/04/18 03/03/18 03/03/18 Range/Units 07:00 00:30 00:30 Sodium 121 L (132-148) mmol/L Potassium 4.4 (3.6-5.0) mmol/L Chloride 88 L (98-107) mmol/L Carbon Dioxide 24 (21-33) mmol/L Anion Gap 14 (10-20) BUN 27 H (7-21) mg/dL Creatinine 1.9 H (0.8-1.5) mg/dl Est GFR ( Amer) 42 Est GFR (Non-Af Amer) 35 POC Glucose (mg/dL) (65-110) mg/dL Random Glucose 130 H (70-110) mg/dL Calcium 8.5 (8.4-10.5) mg/dL Urine Osmolality (300-1000) mosm/kg Ur Random Creatinine 169 (20-370) mg/dL U Random Total Protein 1327 H (22-128) mg/g creat Urine Total Volume 117.5 mg/dL Microalb/Creat Ratio 696 H (<30) Laboratory Results - last 24 hr 03/03/18 03/03/18 03/04/18 00:30 00:30 07:00 Sodium 121 L Potassium 4.4 Chloride 88 L Carbon Dioxide 24 Anion Gap 14 BUN 27 H Creatinine 1.9 H Est GFR ( Amer) 42 Est GFR (Non-Af Amer) 35 POC Glucose (mg/dL) Random Glucose 130 H Calcium 8.5 Urine Osmolality Ur Random Creatinine 169 U Random Total Protein 1327 H Urine Total Volume 117.5 Microalb/Creat Ratio 696 H 03/04/18 03/04/18 03/04/18 07:55 11:20 11:42 Sodium 121 L Potassium 4.3 Chloride 90 L Carbon Dioxide 23 Anion Gap 13 BUN 27 H Creatinine 1.7 H Est GFR ( Amer) 48 Est GFR (Non-Af Amer) 39 POC Glucose (mg/dL) 139 H 145 H Random Glucose 142 H Calcium 8.3 L Urine Osmolality Ur Random Creatinine U Random Total Protein Urine Total Volume Microalb/Creat Ratio 03/04/18 03/04/18 03/04/18 16:10 16:31 18:40 Sodium 125 L Potassium 4.5 Chloride 91 L Carbon Dioxide 26 Anion Gap 13 BUN 27 H Creatinine 1.8 H Est GFR ( Amer) 45 Est GFR (Non-Af Amer) 37 POC Glucose (mg/dL) 115 H Random Glucose 110 Calcium 8.1 L Urine Osmolality 416 Ur Random Creatinine U Random Total Protein Urine Total Volume Microalb/Creat Ratio 03/04/18 03/05/18 03/05/18 20:15 00:50 04:18 Sodium 125 L 125 L 128 L Potassium 4.6 4.8 4.7 Chloride 91 L 94 L 95 L Carbon Dioxide 24 22 25 Anion Gap 15 13 12 BUN 29 H 29 H 27 H Creatinine 1.9 H 1.8 H 1.8 H Est GFR ( Amer) 42 45 45 Est GFR (Non-Af Amer) 35 37 37 POC Glucose (mg/dL) Random Glucose 139 H 97 79 Calcium 8.5 8.2 L 8.3 L Urine Osmolality Ur Random Creatinine U Random Total Protein Urine Total Volume Microalb/Creat Ratio Fingerstick Blood Sugar Results: 127 Critical Care Progress Note - Nutrition Nutrition: Nutrition Category Date Time Status Heart Healthy Diet [DIET] Diets 03/02/18 Breakfast Active Assessment/Plan - Assessment and Plan (Free Text) Plan: 78 year old male admitted to the ICU for asymptomatic severe hyponatremia likely secondary to dehydration 1. Severe hyponatremia 2. Acute Kidney Injury 3. Hx Lung CA 4. Hx Renal CA s/p nephrectomy 5. Hx HTN Plan: Neuro: -No acute issues at this time; AOx3, maintain normothermia Pulm: -Maintain O2 sats > 92% -Pulmonary was consulted for evaluation of lung Ca Cardio: - Maintain MAP > 65 - Continue with norvasc for hypertension GI: -Pepcid for GI prophylaxis -Zofran PRN for nausea Nephro: -ZEINA/hyponatremia likely secondary to dehydration -Presently on 3% saline with intermittent DDAVP to prevent over-correction -Goal Na correction of 6-8meq/24hrs -Nephrology consulted - Dr. Muniz ID: -afebrile, no leukocytosis Endo: -Maintain euglycemia 140-180 -Consistent carb diet -Fingersticks ACHS -Insulin as ordered Heme: - SCD's for DVT PPX Patient seen and case discussed/reviewed with attending, Dr. Fermin <Susi Fermin - Last Filed: 03/05/18 17:25> CCU Objective - Vital Signs / Intake & Output Intake and Output (Last 8hrs): Intake & Output 03/05/18 03/05/18 03/05/18 06:59 14:59 22:59 Intake Total 460 Output Total 600 Balance -140 Intake: IV 260 3%S 260 Oral 200 Output: Urine 600 Condom 600 - Medications Active Medications: Active Medications Generic Name Dose Route Start Last Admin Trade Name Freq PRN Reason Stop Dose Admin Acetaminophen 650 mg 03/01/18 18:45 Tylenol 325mg Tab PO Q6H PRN Temperature Amlodipine Besylate 10 mg 03/04/18 10:00 03/05/18 09:49 Norvasc PO 10 mg DAILY [facility] Administration Benzocaine/Menthol 1 jimenez 03/02/18 15:09 03/02/18 15:25 Cepacol Sore Throat MT 1 jimenez Q2H PRN Administration Sore Throat Enoxaparin Sodium 30 mg 03/03/18 10:00 03/05/18 10:22 Lovenox SC 30 mg DAILY [facility] Administration Protocol Famotidine 20 mg 03/05/18 10:00 03/05/18 09:49 Pepcid PO 20 mg DAILY [facility] Administration Haloperidol Lactate 2 mg 03/04/18 21:03 03/05/18 04:30 Haldol IM 2 mg Q6 PRN Administration confusion/psychosis Protocol Sodium Chloride 1,000 mls @ 100 mls/hr 03/05/18 15:15 Sodium Chloride 0.9% IV .Q10H [facility] Insulin Human Regular 0 units 03/02/18 11:30 08/23/18 12:37 Humulin R Low SC Not Given ACHS [facility] Protocol Quetiapine Fumarate 25 mg 03/05/18 18:00 Seroquel PO BID [facility] Protocol - Patient Studies Lab Studies: Lab Studies 03/05/18 03/05/18 03/05/18 Range/Units 14:30 14:10 12:50 WBC 6.5 5.9 D (4.5-11.0) 10^3/ul RBC 2.99 L 2.68 L (3.5-6.1) 10^6/uL Hgb 9.5 L 8.6 L D (14.0-18.0) g/dL Hct 27.8 L 24.7 L (42.0-52.0) % MCV 93.0 92.2 D (80.0-105.0) fl MCH 31.8 32.1 (25.0-35.0) pg MCHC 34.2 34.8 (31.0-37.0) g/dl RDW 13.6 13.6 (11.5-14.5) % Plt Count 303 274 (120.0-450.0) 10^3/uL MPV 9.2 8.9 (7.0-11.0) fl Sodium 130 L (132-148) mmol/L Potassium 4.9 (3.6-5.0) mmol/L Chloride 99 (98-107) mmol/L Carbon Dioxide 23 (21-33) mmol/L Anion Gap 14 (10-20) BUN 27 H (7-21) mg/dL Creatinine 1.6 H (0.8-1.5) mg/dl Est GFR ( Amer) 51 Est GFR (Non-Af Amer) 42 POC Glucose (mg/dL) (65-110) mg/dL Random Glucose 132 H (70-110) mg/dL Calcium 8.3 L (8.4-10.5) mg/dL Urine Osmolality (300-1000) mosm/kg Ur Random Sodium meq/L 03/05/18 03/05/18 03/05/18 Range/Units 12:34 11:24 07:50 WBC (4.5-11.0) 10^3/ul RBC (3.5-6.1) 10^6/uL Hgb (14.0-18.0) g/dL Hct (42.0-52.0) % MCV (80.0-105.0) fl MCH (25.0-35.0) pg MCHC (31.0-37.0) g/dl RDW (11.5-14.5) % Plt Count (120.0-450.0) 10^3/uL MPV (7.0-11.0) fl Sodium 127 L (132-148) mmol/L Potassium 4.5 (3.6-5.0) mmol/L Chloride 97 L (98-107) mmol/L Carbon Dioxide 22 (21-33) mmol/L Anion Gap 12 (10-20) BUN 26 H (7-21) mg/dL Creatinine 1.4 (0.8-1.5) mg/dl Est GFR ( Amer) 60 Est GFR (Non-Af Amer) 49 POC Glucose (mg/dL) 114 H (65-110) mg/dL Random Glucose 92 (70-110) mg/dL Calcium 8.2 L (8.4-10.5) mg/dL Urine Osmolality 395 (300-1000) mosm/kg Ur Random Sodium 107 meq/L 03/05/18 03/05/18 03/04/18 Range/Units 04:18 00:50 20:15 WBC (4.5-11.0) 10^3/ul RBC (3.5-6.1) 10^6/uL Hgb (14.0-18.0) g/dL Hct (42.0-52.0) % MCV (80.0-105.0) fl MCH (25.0-35.0) pg MCHC (31.0-37.0) g/dl RDW (11.5-14.5) % Plt Count (120.0-450.0) 10^3/uL MPV (7.0-11.0) fl Sodium 128 L 125 L 125 L (132-148) mmol/L Potassium 4.7 4.8 4.6 (3.6-5.0) mmol/L Chloride 95 L 94 L 91 L (98-107) mmol/L Carbon Dioxide 25 22 24 (21-33) mmol/L Anion Gap 12 13 15 (10-20) BUN 27 H 29 H 29 H (7-21) mg/dL Creatinine 1.8 H 1.8 H 1.9 H (0.8-1.5) mg/dl Est GFR ( Amer) 45 45 42 Est GFR (Non-Af Amer) 37 37 35 POC Glucose (mg/dL) (65-110) mg/dL Random Glucose 79 97 139 H (70-110) mg/dL Calcium 8.3 L 8.2 L 8.5 (8.4-10.5) mg/dL Urine Osmolality (300-1000) mosm/kg Ur Random Sodium meq/L 03/04/18 03/04/18 Range/Units 18:40 16:31 WBC (4.5-11.0) 10^3/ul RBC (3.5-6.1) 10^6/uL Hgb (14.0-18.0) g/dL Hct (42.0-52.0) % MCV (80.0-105.0) fl MCH (25.0-35.0) pg MCHC (31.0-37.0) g/dl RDW (11.5-14.5) % Plt Count (120.0-450.0) 10^3/uL MPV (7.0-11.0) fl Sodium (132-148) mmol/L Potassium (3.6-5.0) mmol/L Chloride (98-107) mmol/L Carbon Dioxide (21-33) mmol/L Anion Gap (10-20) BUN (7-21) mg/dL Creatinine (0.8-1.5) mg/dl Est GFR ( Amer) Est GFR (Non-Af Amer) POC Glucose (mg/dL) 115 H (65-110) mg/dL Random Glucose (70-110) mg/dL Calcium (8.4-10.5) mg/dL Urine Osmolality 416 (300-1000) mosm/kg Ur Random Sodium meq/L Laboratory Results - last 24 hr 03/04/18 03/04/18 03/04/18 16:31 18:40 20:15 WBC RBC Hgb Hct MCV MCH MCHC RDW Plt Count MPV Sodium 125 L Potassium 4.6 Chloride 91 L Carbon Dioxide 24 Anion Gap 15 BUN 29 H Creatinine 1.9 H Est GFR ( Amer) 42 Est GFR (Non-Af Amer) 35 POC Glucose (mg/dL) 115 H Random Glucose 139 H Calcium 8.5 Urine Osmolality 416 Ur Random Sodium 03/05/18 03/05/18 03/05/18 00:50 04:18 07:50 WBC RBC Hgb Hct MCV MCH MCHC RDW Plt Count MPV Sodium 125 L 128 L 127 L Potassium 4.8 4.7 4.5 Chloride 94 L 95 L 97 L Carbon Dioxide 22 25 22 Anion Gap 13 12 12 BUN 29 H 27 H 26 H Creatinine 1.8 H 1.8 H 1.4 Est GFR ( Amer) 45 45 60 Est GFR (Non-Af Amer) 37 37 49 POC Glucose (mg/dL) Random Glucose 97 79 92 Calcium 8.2 L 8.3 L 8.2 L Urine Osmolality Ur Random Sodium 03/05/18 03/05/18 03/05/18 11:24 12:34 12:50 WBC 5.9 D RBC 2.68 L Hgb 8.6 L D Hct 24.7 L MCV 92.2 D MCH 32.1 MCHC 34.8 RDW 13.6 Plt Count 274 MPV 8.9 Sodium Potassium Chloride Carbon Dioxide Anion Gap BUN Creatinine Est GFR ( Amer) Est GFR (Non-Af Amer) POC Glucose (mg/dL) 114 H Random Glucose Calcium Urine Osmolality 395 Ur Random Sodium 107 03/05/18 03/05/18 14:10 14:30 WBC 6.5 RBC 2.99 L Hgb 9.5 L Hct 27.8 L MCV 93.0 MCH 31.8 MCHC 34.2 RDW 13.6 Plt Count 303 MPV 9.2 Sodium 130 L Potassium 4.9 Chloride 99 Carbon Dioxide 23 Anion Gap 14 BUN 27 H Creatinine 1.6 H Est GFR ( Amer) 51 Est GFR (Non-Af Amer) 42 POC Glucose (mg/dL) Random Glucose 132 H Calcium 8.3 L Urine Osmolality Ur Random Sodium Critical Care Progress Note - Nutrition Nutrition: Nutrition Category Date Time Status Heart Healthy Diet [DIET] Diets 03/02/18 Breakfast Active Addendum Addendum: 03/05/18 17:23 ICU Attending Addendum: Patient seen and examined. Case reviewed on round with housestaff. Agree with resident note above with the following additions/exceptions: 78yo male with PMhx of Renal Ca with mets and HTN presented being treated in the MICU for severe hyponatremia. Unclear etiology. Possibly medication induced n/v. For now, nephro managing sodium. Recommend d/c 3% as sodium has now improved monitor seriel chem while off 3% renal function improved trend BMP q 4 hours, with urine electrolytes q 4 hours as well. Patient having delirium - possibly ICU delirium. Monitor for now. Rest of care as noted above. Susi Fermin MD [employer] Critical care time : 33 mins
[2018-03-05] MEDS: Insulin Reg-LOW-Coverage SC SCH ×4 (07:30→22:07)
--- NOTE | 2018-03-05 08:07 | CP.PCM.PN ---
<Anton Floyd - Last Filed: 03/05/18 11:37> Subjective - Date & Time of Evaluation Date of Evaluation: 03/05/18 Time of Evaluation: 09:00 - Subjective Subjective: Anton Floyd- Internal Medicine Resident- Nephrology Progress Note on Behalf of Dr. Muniz Subjective: Patient seen and examined at bedside. Resting comfortably in chair next to bed. As per nursing staff, patient was experiencing visual hallucinations and became agitated. Hallucinations and agitation have since resolved. Offers no new complaints at this time. Denies fever, chills, chest pain, shortness of breath, abdominal pain, constipation, and urinary symptoms. 12-point review of systems negative except as indicated in the HPI Physical Examination: - Constitutional Appears: No Acute Distress - Head Exam Head Exam: NORMAL INSPECTION - ENT Exam ENT Exam: Dry Mucus Membranes - Respiratory Exam Respiratory Exam: no accessory muscle use, NORMAL BREATHING PATTERN - Cardiovascular Exam Cardiovascular Exam: REGULAR RHYTHM, +S1, +S2 - GI/Abdominal Exam GI & Abdominal Exam: Soft, no guarding, no rebound tenderness - Extremities Exam Extremities Exam: no clubbing, no cyanosis, trace edema bilateral lower extremities - Neurological Exam Neurological Exam: Alert, Awake, Responds to verbal stimuli, answers questions, follows commands - Psychiatric Exam Psychiatric exam: Normal Affect - Skin Skin Exam: dry and warm Assessment and Plan: Patient is a 78 year old male with a past medical history of renal cell carcinoma s/p nephrectomy with lung metastases, diabetes, and hypertension who was admitted for evaluation and treatment of dizziness, nausea, and diarrhea. The nephrology team was consulted for management of the patient's severe hyponatremia. Severe Hyponatremia - serum sodium reviewed and trending- 127 from 125 (105 on admission 03/01/18 at ~1200) - serum sodium levels increasing at appropriate rate - correction goal 0.25mEq/hr- 0.50mEq/hr (6meq-8meq/ 24 hour period- prevent osmotic demyelination syndrome) - patient is s/p DDAVP - c/w 3% NS @ 20cc/hr until sodium corrects to mid 130s than switch IVF to NS @ 100cc/hr - repeat urine sodium and urine osmolality ordered and pending-goal is to keep Ur osm > 400 until serum Na > 130 - continue to follow serial BMPs ZEINA on Chronic Kidney Disease Stage 3b - BUN and creatinine reviewed and trended- BUN 26 from 29 and creatinine increased to 1.4 from 1.8 - avoid nephrotoxic agents, hold home HCTZ/Lisinopril - will consider renal US pending serum nitrogen product trend Hallucinations - likely secondary to ICU delirium - resolved - redirect patient if delirium returns Hx of Hypertension - Blood pressures reviewed and trended- stable 110s/90s - keep MAPs > 65mmHg - continue home amlodipine Thank you for the opportunity to participate in the care of this patient. Patient seen, case discussed with, and plan approved by attending physician, Dr. Muniz. Objective - Vital Signs/Intake and Output Vital Signs (last 24 hours): Temp Pulse Resp BP Pulse Ox 98 F 64 15 108/49 L 92 L 03/05/18 04:00 03/05/18 06:00 03/05/18 06:00 03/05/18 06:00 03/05/18 06:10 Intake and Output: 03/05/18 03/05/18 06:59 18:59 Intake Total 460 Output Total 600 Balance -140 - Medications Medications: Current Medications Acetaminophen (Tylenol 325mg Tab) 650 mg PO Q6H PRN PRN Reason: Temperature Amlodipine Besylate (Norvasc) 10 mg PO DAILY [facility] Last Admin: 03/04/18 13:10 Dose: 10 mg Benzocaine/Menthol (Cepacol Sore Throat) 1 jimenez MT Q2H PRN PRN Reason: Sore Throat Last Admin: 03/02/18 15:25 Dose: 1 jimenez Enoxaparin Sodium (Lovenox) 30 mg SC DAILY [facility] PRN Reason: Protocol Last Admin: 03/04/18 09:25 Dose: 30 mg Famotidine (Pepcid) 20 mg PO DAILY [facility] Haloperidol Lactate (Haldol) 2 mg IM Q6 PRN; Protocol PRN Reason: confusion/psychosis Last Admin: 03/05/18 04:30 Dose: 2 mg Sodium Chloride (Hypertonic Saline 3%) 500 mls @ 20 mls/hr IV .Q24H [facility] Insulin Human Regular (Humulin R Low) 0 units SC ACHS [facility] PRN Reason: Protocol Last Admin: 03/04/18 22:30 Dose: Not Given - Labs Labs: 03/03/18 06:00 03/05/18 04:18 PT 12.8 SECONDS (9.4-12.5) H 08/19/18 12:05 INR 1.11 03/01/18 12:05 APTT 26.3 Seconds (25.1-36.5) 03/01/18 12:05 <Ajay Muniz - Last Filed: 03/06/18 06:34> Objective - Vital Signs/Intake and Output Vital Signs (last 24 hours): Temp Pulse Resp BP Pulse Ox 98.2 F 76 16 84/46 L 97 03/06/18 04:00 03/06/18 06:12 03/06/18 06:12 03/06/18 06:00 03/06/18 06:00 Intake and Output: 03/05/18 03/06/18 18:59 06:59 Intake Total 470 Output Total 800 Balance -330 - Medications Medications: Current Medications Acetaminophen (Tylenol 325mg Tab) 650 mg PO Q6H PRN PRN Reason: Temperature Amlodipine Besylate (Norvasc) 10 mg PO DAILY [facility] Last Admin: 03/05/18 09:49 Dose: 10 mg Benzocaine/Menthol (Cepacol Sore Throat) 1 jimenez MT Q2H PRN PRN Reason: Sore Throat Last Admin: 03/02/18 15:25 Dose: 1 jimenez Enoxaparin Sodium (Lovenox) 30 mg SC DAILY [facility] PRN Reason: Protocol Last Admin: 03/05/18 10:22 Dose: 30 mg Famotidine (Pepcid) 20 mg PO DAILY [facility] Last Admin: 03/05/18 09:49 Dose: 20 mg Haloperidol Lactate (Haldol) 2 mg IM Q6 PRN; Protocol PRN Reason: confusion/psychosis Last Admin: 03/05/18 04:30 Dose: 2 mg Sodium Chloride (Sodium Chloride 0.9%) 1,000 mls @ 100 mls/hr IV .Q10H [facility] Last Admin: 03/05/18 15:15 Dose: 100 mls/hr Insulin Human Regular (Humulin R Low) 0 units SC ACHS [facility] PRN Reason: Protocol Last Admin: 03/05/18 22:07 Dose: Not Given Quetiapine Fumarate (Seroquel) 25 mg PO BID [facility] PRN Reason: Protocol Last Admin: 03/05/18 19:02 Dose: 25 mg - Labs Labs: 03/05/18 14:30 03/05/18 20:05 PT 12.8 SECONDS (9.4-12.5) H 03/01/18 12:05 INR 1.11 03/01/18 12:05 APTT 26.3 Seconds (25.1-36.5) 03/01/18 12:05 Assessment and Plan (1) Hyponatremia Status: Acute (2) ZEINA (acute kidney injury) Status: Acute (3) CKD (chronic kidney disease) Status: Acute (4) HTN (hypertension) Status: Acute Attending/Attestation - Attestation I have personally seen and examined this patient.: Yes I have fully participated in the care of the patient.: Yes I have reviewed all pertinent clinical information, including history, physical exam and plan: Yes Notes (Text): Patient seen and examined; I agree with the resident's note as above with the following additions/edits: Patient with pmh of htn, dm, metastatic renal cell CA s/p L nephrectomy, CKD III , admitted with severe hyponatremia in the setting of decreased PO intake, vomiting; Hyponatremia correcting gradually on hypertonic saline with rate being adjusted periodically to keep rate of correction ~8 meq/24 hrs; goal is to keep urine osm > 400 (with intermittent desmopressin administration) while on hypertonic saline to avoid sudden increases in serum Na; serum Na 130 this afternoon and so we agreed to hold further hypertonic saline so patient can be transferred to medical floor; subsequently placed on NS at 100 cc/hr; Noted to have some peroids of delirium today; I doubt this is due to osmotic demyelination syndrome as serum Na has been corrected gradually; awaiting neurology consultation; Also noted to have periods of hypotension today; should hold amlodipine for now ; IVF as above; Sending some serologic workup to look for causes of CKD other than DM;
[2018-03-05 08:10] LABS: CALCIUM 8.2 mg/dL (8.4-10.5)
--- NOTE | 2018-03-05 08:19 | CON ---
Copied To: Francesco Lyman MD Attending MD: Francesco Lyman MD DATE: 03/04/2018 PULMONARY CRITICAL CARE CONSULTATION REFERRING PHYSICIAN: Guillermina Garcia MD REASON FOR CONSULTATION: Chronic lung disease, lung cancer. HISTORY OF PRESENT ILLNESS: This is a 78-year-old gentleman with known history of renal cell carcinoma and nephrectomy the remote past about 7 to 11 years ago; about three years ago diagnosed with unresectable lung cancer, been on oral chemotherapy, there may be component of chronic lung disease, obesity comes into ER with weakness, nausea, vomiting, diarrhea for few days, found to be severely hyponatremic, was placed on hypertonic saline, admitted to the intensive care unit, presented to be lying in bed, head at 45 degrees, and son is at bedside. Denies any headache or rhinitis. Does not know , but daytime sleepy and tired. No chest pain. No abdominal pain. No dysuria. No significant leg swelling. PAST MEDICAL HISTORY: As per history of present illness. ALLERGIES: None known. SOCIAL HISTORY: Stopped smoking about 11 years ago. Deny any alcohol use. FAMILY HISTORY: No significant cardiopulmonary disease reported. MEDICATIONS: He is on Cepacol lozenges every 12 hours p.r.n., insulin coverage, he is on hypertonic saline 3 mL per hour, Lovenox 30 mg daily, Norvasc 10 mg daily, Pepcid mg IV daily, Tylenol p.r.n., Zofran p.r.n. REVIEW OF SYSTEMS: No headache. No rhinitis. He got short of breath with exertion. No cough. No chest pain. No abdominal pain. No dysuria. No leg pain or leg swelling. PHYSICAL EXAMINATION: GENERAL: Lying in bed in no acute distress. VITAL SIGNS: Temperature is 98, heart rate is 81, respiratory rate is 22, blood pressure 144/ . HEENT: Moist mucous membranes. Small oral cavity. Crowded airway. NECK: Short, thick neck. LUNGS: Diffuse scattered rhonchi. Some crackles. HEART: S1, S2. ABDOMEN: Obese, soft, nontender, nondistended. EXTREMITIES: No edema. NEUROLOGIC: Awake, alert, follow simple commands. LABORATORY DATA: Shows hemoglobin 11, hematocrit 38.9, WBC 10.1, platelet count is 321. D-dimer was 329, INR 1.1. VBG shows pH of 7.42, pCO2 of 38, O2 sat of 47% on room air. Sodium 121, potassium of 4.3, on admission sodium was 118, chloride 90, bicarbonate 23, BUN 27, creatinine is 1.7. On admission BUN was 30, creatinine 2, glucose 142, calcium is 8.3. Microbiology: Blood cultures, urine cultures, there is no growth. Had a CAT scan of the chest done on admission in the ER shows multiple pulmonary nodules are seen in the majority for which a less than 5 mm in size, there is 70 mm nodule in the right lung. Also, CT of the abdomen and pelvis done in the ER yesterday which shows there are numerous eroded lesions scattered throughout the hepatic parenchyma consistent with metastatic disease. There are also scattered presume hepatic cyst lesion and there is an elliptical shape soft tissue mass density in the mid upper mesentery possibly either within the uncinate process of the pancreas or adjacent of the malignant adenopathy, enlarged right adrenal gland which may represent metastatic deposit status post left nephrectomy. IMPRESSION AND PLAN: Severe hyponatremia, unresectable lung cancer, history of renal cell carcinoma, requiring nephrectomy, renal failure, diabetes, may have a complain of sleep apnea syndrome. Case discussed with district medical examiner at bedside, also spoke to patient's , son and also spoke to patient's daughter over the telephone, who is out of state. I agreed that slowly giving hypertonic saline. We will try to correct hyponatremia. According to patient, he had been drinking lot of free water to protect the kidney because he already has nephrectomy. Pulmonary point of view, he is doing okay. We will add inhaled bronchodilators. According to daughter, patient had a PET scan in September and was not informed that has metastasis to the liver or pancreas. So of course after discharge, patient needs to be follow up with his own oncologist. Keep head at 45 degrees. Sleep apnea precautions, normal isolation. We will recommend attended sleep study upon discharge as outpatient. Thank you and we will follow with you. Francesco Lyman MD [facility] # [id number]
[2018-03-05] MEDS: Enoxaparin 30 mg Syringe SC SCH (10:22)
[2018-03-05 12:56] LABS: HEMOGLOBIN 8.6 g/dL (14.0-18.0); MEAN CORPUSCULAR HEMOGLOBIN 32.1 pg (25.0-35.0); MEAN CORPUSCULAR HGB CONC 34.8 g/dl (31.0-37.0); MEAN PLATELET VOLUME 8.9 fl (7.0-11.0); RBC 2.68 10^6/uL (3.5-6.1); RED CELL DISTRIBUTION WIDTH 13.6 % (11.5-14.5); WHITE BLOOD COUNT 5.9 10^3/ul (4.5-11.0)
[2018-03-05 12:59] LABS: MEAN CELL VOLUME 92.2 fl (80.0-105.0)
[2018-03-05 13:12] LABS: OSMOLALITY,URINE 395 mosm/kg (300-1000)
[2018-03-05 14:35] LABS: CALCIUM 8.3 mg/dL (8.4-10.5)
[2018-03-05] MEDS ORDERED: Sodium Chloride 0.9% 1,000 ML IV SCH (15:15)
[2018-03-05 15:59] LABS: HEMOGLOBIN 9.5 g/dL (14.0-18.0); MEAN CORPUSCULAR HEMOGLOBIN 31.8 pg (25.0-35.0); MEAN CORPUSCULAR HGB CONC 34.2 g/dl (31.0-37.0); MEAN PLATELET VOLUME 9.2 fl (7.0-11.0); RBC 2.99 10^6/uL (3.5-6.1); RED CELL DISTRIBUTION WIDTH 13.6 % (11.5-14.5); WHITE BLOOD COUNT 6.5 10^3/ul (4.5-11.0)
--- NOTE | 2018-03-05 23:46 | PN ---
Copied To: Francesco Lyman MD Attending MD: Francesco Lyman MD DATE: 03/05/2018 PULMONARY PROGRESS NOTE REFERRING PHYSICIAN: Dr. Garcia SUBJECTIVE: The patient is lying in the reclining chair. Night was unremarkable. Feels better. No headache, no rhinitis. No nausea, vomiting, diarrhea, leg pain or leg swelling. Overnight, had some sundowning. OBJECTIVE: GENERAL: In no acute distress. VITAL SIGNS: Temperature is 98, heart rate is 66, respiratory rate is 20, blood pressure 126/70, pulse ox 96% on room air. HEENT: Moist mucous membranes. Small oral cavity. Crowded airway. NECK: Supple. No JVD. LUNGS: Have scattered rhonchi and few crackles. HEART: S1 and S2. ABDOMEN: Soft, nontender, no organomegaly. EXTREMITIES: No edema. NEUROLOGIC: Awake and alert, follows simple command. MEDICATIONS: He is on Cepacol lozenges every 2 hours p.r.n., Haldol 2 mg every 6 hours p.r.n., insulin coverage, getting hypertonic saline 25 mL/hour, Lovenox 30 mg subcu daily, Norvasc 10 mg daily, Pepcid 20 mg daily, Seroquel 25 mg twice a day, IV fluid normal saline 100 mL/hour, Tylenol p.r.n. basis. LABORATORY DATA: Shows hemoglobin 9.5, hematocrit 27.8, WBC 6.5, platelet count is 303. Sodium 129, potassium 4.5, chloride 99, bicarbonate 23, BUN 25, creatinine 1.6, glucose 163, calcium is 8. Microbiology; blood culture, urine culture, there is no growth. IMPRESSION AND PLAN: Severe hyponatremia which is improving on hypertonic saline, unresectable lung cancer with metastatic disease, probably to the liver, also renal cell carcinoma requiring nephrectomy in the remote past, may have sleep apnea syndrome. Spoke to nursing staff. May need to discontinue hypertonic saline. Continue normal saline. Keep head at 45 degrees. Bronchodilator. Sleep apnea precaution, avoid sedation. Gastric and DVT prophylaxis. Fall precaution. Thank you and we will follow with you. Francesco Lyman MD
--- NOTE | 2018-03-06 03:08 | CON ---
Copied To: Stephan Vazuqez MD Attending MD: Stephan Vazquez MD DATE: 03/05/2018 HISTORY OF PRESENT ILLNESS: This is a 78-year-old male with a past medical history of renal CA, status post nephrectomy and also diagnosed with unresectable lung cancer, has been on oral chemotherapy and the patient came to the ER with nausea, vomiting and diarrhea for few days, and became severely hyponatremic, and was admitted to ICU and hypertonic saline was given, and Renal is on the case. PAST MEDICAL HISTORY: As above. SOCIAL HISTORY: Stopped smoking 11 years ago. Does not drink. ALLERGIES: NO KNOWN DRUG ALLERGY. REVIEW OF SYSTEMS: A 10-point review of systems was noted. PHYSICAL EXAMINATION: HEENT: Normocephalic, atraumatic. NECK: Supple. NEUROLOGIC: Awake, oriented to self. Cranial nerves II through XII were tested. Spontaneous movement of the extremities noted. Deep tendon reflexes 1+. Plantars downgoing. Sensory appears intact. Cerebellar gait deferred. IMPRESSION : Severe hyponatremia, unresectable lung cancer, and also history of renal carcinoma and status post nephrectomy. Discussed with hospitalist and continue present management. We will follow up. Stephan Vazquez MD
[2018-03-06 06:38] LABS: HEMOGLOBIN 9.2 g/dL (14.0-18.0); MEAN CELL VOLUME 93.2 fl (80.0-105.0); MEAN CORPUSCULAR HEMOGLOBIN 31.4 pg (25.0-35.0); MEAN CORPUSCULAR HGB CONC 33.7 g/dl (31.0-37.0); MEAN PLATELET VOLUME 8.7 fl (7.0-11.0); RBC 2.93 10^6/uL (3.5-6.1); RED CELL DISTRIBUTION WIDTH 13.7 % (11.5-14.5); WHITE BLOOD COUNT 5.8 10^3/ul (4.5-11.0)
[2018-03-06 06:52] LABS: ALB/GLOB RATIO 1.1 (1.1-1.8); ALBUMIN 2.9 g/dL (3.0-4.8); ALT/SGPT 26 U/L (7-56); AST/SGOT 26 U/L (17-59); BLOOD UREA NITROGEN 23 mg/dL (7-21); CALCIUM 8.2 mg/dL (8.4-10.5); GFR NON-AFRICAN AMERICAN 42
[2018-03-06] MEDS: Insulin Reg-LOW-Coverage SC SCH ×4 (08:06→21:44)
--- NOTE | 2018-03-06 08:30 | PN ---
Copied To: Guillermina Garcia MD Attending MD: Guillermina Garcia MD DATE: 03/05/2018 SUBJECTIVE: Patient is a 78-year-old male. Patient was seen and examined on the bedside, looking comfortable, little bit confused. Overnight events reported. Discussion done with nursing staff and nurse practitionerMarie. Patient tolerated diet very well. Denies chest pain, palpitation, or shortness of breath. No nausea, vomiting, or diarrhea. No hematuria or hematochezia. PHYSICAL EXAMINATION: VITAL SIGNS: Temperature 98, pulse 66, respiratory rate is 16, blood pressure 107/67. HEENT: Head: Normocephalic, atraumatic. Eyes: PERRLA. Extraocular muscles are intact. Conjunctivae are clear. Nose patent. NECK: Supple. No carotid bruit, JVD, or thyromegaly. CHEST: Bilaterally symmetrical. HEART: S1 and S2 positive. LUNGS: Clear to auscultation. ABDOMEN: Soft. Bowel sounds present. No organomegaly. EXTREMITIES: No edema. No cyanosis. NEUROLOGIC: Patient is awake and alert. Moving all 4 extremities. No focal deficit. MEDICATIONS: Tylenol, amlodipine, Cepacol lozenges, Lovenox, Pepcid, Haldol, NS, insulin. LABORATORY DATA: Sodium 128, potassium 4.7, BUN 27, creatinine 1.8, GFR is more than 37, random glucose 79, calcium 8.3. ASSESSMENT AND PLAN: Mr. Gilberto Robert is a 78-year-old male who was admitted in the Intensive Care Unit for asymptomatic severe hyponatremia likely secondary to dehydration, severe hypoalbuminemia, acute kidney injury, history of lung cancer, history of renal cancer, status post nephrectomy, history of hypertension. Patient is oriented x3. History of lung cancer. Continue with Norvasc for hypertension, Pepcid for GI prophylaxis, Zofran p.r.n. for nauseousness. Acute kidney injury and hyponatremia, likely secondary to the dehydration, treatments. [employer], Dr. Muniz is on the case. Repeat labs. GI and deep vein thrombosis prophylaxes. We will follow up. Guillermina Garcia MD MTDD
--- NOTE | 2018-03-06 09:47 | PN ---
Copied To: Aniceto Russo MD Attending MD: Aniceto Russo MD DATE: 03/06/2018 HEMATOLOGY EVALUATION SUBJECTIVE: This is a 78-year-old man with evidently history of lung cancer and kidney cancer, metastatic disease of liver, adrenal glands. Admitted for evaluation and treatment for hyponatremia. The CAT scans done show multiple lesions throughout the liver, a mass lesion in the upper abdomen near the pancreas and enlarged right adrenal gland, left nephrectomy and laboratory findings which show the creatinine of 1.6 and liver function tests are normal. The electrolytes have been improving. At this point, there are no plans for active chemotherapy at this point while he is in the hospital and will need to be stabilized before consideration of treatment for the cancers. Aniceto Russo MD
[2018-03-06] MEDS: Enoxaparin 30 mg Syringe SC SCH (10:26)
--- NOTE | 2018-03-06 10:52 | CP.CCUPN ---
<Indra Norris - Last Filed: 03/06/18 10:48> CCU Subjective - Physician Review Events Since Last Encounter (Free Text): 03/06/18 10:48 Patient seen and examined at bedside; patient apparently gets delirious overnight, appeals examiner assigned Xiang SANABRIA. Patient has no acute complaints right now, tolerating breakfast right now. CCU Objective - Vital Signs / Intake & Output Intake and Output (Last 8hrs): Intake & Output 03/05/18 03/06/18 03/06/18 22:59 06:59 14:59 Intake Total 470 Output Total 800 Balance -330 Intake: IV 170 3%S 120 Left Antecubital 50 Oral 300 Output: Urine 800 Condom 800 Emesis 0 Other: # Bowel Movements 0 - Physical Exam Head: Positive for: Atraumatic, Normocephalic Pupils: Positive for: PERRL Extroacular Muscles: Positive for: EOMI Conjunctiva: Positive for: Normal Mouth: Positive for: Moist Mucous Membranes Neck: Positive for: Normal Range of Motion Respiratory/Chest: Positive for: Clear to Auscultation, Good Air Exchange. Negative for: Respiratory Distress, Accessory Muscle Use, Rales, Rhonchi Cardiovascular: Positive for: Regular Rate and Rhythm, Normal S1, S2. Negative for: Murmurs, Rub, Gallop Abdomen: Negative for: Tenderness, Distention, Peritoneal Signs, Rebound, Guarding Back: Positive for: Normal Inspection Upper Extremity: Positive for: Normal Inspection. Negative for: Cyanosis, Edema Lower Extremity: Positive for: Normal Inspection. Negative for: Edema Neurological: Positive for: GCS=15, CN II-XII Intact, Speech Normal, Motor Func Grossly Intact, Normal Sensory Function Skin: Positive for: Warm, Dry, Normal Color. Negative for: Rashes Psychiatric: Positive for: Alert, Oriented x 3, Normal Insight, Normal Concentration - Medications Active Medications: Active Medications Generic Name Dose Route Start Last Admin Trade Name Freq PRN Reason Stop Dose Admin Acetaminophen 650 mg 03/01/18 18:45 Tylenol 325mg Tab PO Q6H PRN Temperature Amlodipine Besylate 10 mg 03/04/18 10:00 03/05/18 09:49 Norvasc PO 10 mg DAILY MAURA Administration Benzocaine/Menthol 1 jimenez 03/02/18 15:09 03/02/18 15:25 Cepacol Sore Throat MT 1 jimenez Q2H PRN Administration Sore Throat Enoxaparin Sodium 30 mg 03/03/18 10:00 03/06/18 10:26 Lovenox SC 30 mg DAILY MAURA Administration Protocol Famotidine 20 mg 03/05/18 10:00 03/06/18 10:27 Pepcid PO 20 mg DAILY MAURA Administration Haloperidol Lactate 2 mg 03/04/18 21:03 03/05/18 04:30 Haldol IM 2 mg Q6 PRN Administration confusion/psychosis Protocol Sodium Chloride 1,000 mls @ 100 mls/hr 03/05/18 15:15 03/05/18 15:15 Sodium Chloride 0.9% IV 100 mls/hr .Q10H MAURA Administration Insulin Human Regular 0 units 03/02/18 11:30 03/06/18 08:06 Humulin R Low SC Not Given ACHS [facility] Protocol Quetiapine Fumarate 25 mg 03/05/18 18:00 03/06/18 10:28 Seroquel PO 25 mg BID MAURA Administration Protocol - Patient Studies Lab Studies: Lab Studies 03/06/18 03/06/18 03/06/18 Range/Units 07:35 05:30 05:30 WBC 5.8 (4.5-11.0) 10^3/ul RBC 2.93 L (3.5-6.1) 10^6/uL Hgb 9.2 L (14.0-18.0) g/dL Hct 27.3 L (42.0-52.0) % MCV 93.2 (80.0-105.0) fl MCH 31.4 (25.0-35.0) pg MCHC 33.7 (31.0-37.0) g/dl RDW 13.7 (11.5-14.5) % Plt Count 282 (120.0-450.0) 10^3/uL MPV 8.7 (7.0-11.0) fl Sodium 134 (132-148) mmol/L Potassium 4.5 (3.6-5.0) mmol/L Chloride 102 (98-107) mmol/L Carbon Dioxide 24 (21-33) mmol/L Anion Gap 12 (10-20) BUN 23 H (7-21) mg/dL Creatinine 1.6 H (0.8-1.5) mg/dl Est GFR ( Amer) 51 Est GFR (Non-Af Amer) 42 POC Glucose (mg/dL) 84 (65-110) mg/dL Random Glucose 80 (70-110) mg/dL Calcium 8.2 L (8.4-10.5) mg/dL Magnesium 1.9 (1.7-2.2) mg/dL Total Bilirubin 0.3 (0.2-1.3) mg/dL AST 26 (17-59) U/L ALT 26 (7-56) U/L Alkaline Phosphatase 72 (38-126) U/L Total Protein 5.5 L (5.8-8.3) g/dL Albumin 2.9 L (3.0-4.8) g/dL Globulin 2.7 gm/dL Albumin/Globulin Ratio 1.1 (1.1-1.8) Urine Osmolality (300-1000) mosm/kg Ur Random Sodium meq/L 03/05/18 03/05/18 03/05/18 Range/Units 21:56 20:05 16:17 WBC (4.5-11.0) 10^3/ul RBC (3.5-6.1) 10^6/uL Hgb (14.0-18.0) g/dL Hct (42.0-52.0) % MCV (80.0-105.0) fl MCH (25.0-35.0) pg MCHC (31.0-37.0) g/dl RDW (11.5-14.5) % Plt Count (120.0-450.0) 10^3/uL MPV (7.0-11.0) fl Sodium 129 L (132-148) mmol/L Potassium 4.5 (3.6-5.0) mmol/L Chloride 99 (98-107) mmol/L Carbon Dioxide 23 (21-33) mmol/L Anion Gap 11 (10-20) BUN 25 H (7-21) mg/dL Creatinine 1.6 H (0.8-1.5) mg/dl Est GFR ( Amer) 51 Est GFR (Non-Af Amer) 42 POC Glucose (mg/dL) 163 H 91 (65-110) mg/dL Random Glucose 194 H (70-110) mg/dL Calcium 8.0 L (8.4-10.5) mg/dL Magnesium (1.7-2.2) mg/dL Total Bilirubin (0.2-1.3) mg/dL AST (17-59) U/L ALT (7-56) U/L Alkaline Phosphatase (38-126) U/L Total Protein (5.8-8.3) g/dL Albumin (3.0-4.8) g/dL Globulin gm/dL Albumin/Globulin Ratio (1.1-1.8) Urine Osmolality (300-1000) mosm/kg Ur Random Sodium meq/L 03/05/18 03/05/18 03/05/18 Range/Units 14:30 14:10 12:50 WBC 6.5 5.9 D (4.5-11.0) 10^3/ul RBC 2.99 L 2.68 L (3.5-6.1) 10^6/uL Hgb 9.5 L 8.6 L D (14.0-18.0) g/dL Hct 27.8 L 24.7 L (42.0-52.0) % MCV 93.0 92.2 D (80.0-105.0) fl MCH 31.8 32.1 (25.0-35.0) pg MCHC 34.2 34.8 (31.0-37.0) g/dl RDW 13.6 13.6 (11.5-14.5) % Plt Count 303 274 (120.0-450.0) 10^3/uL MPV 9.2 8.9 (7.0-11.0) fl Sodium 130 L (132-148) mmol/L Potassium 4.9 (3.6-5.0) mmol/L Chloride 99 (98-107) mmol/L Carbon Dioxide 23 (21-33) mmol/L Anion Gap 14 (10-20) BUN 27 H (7-21) mg/dL Creatinine 1.6 H (0.8-1.5) mg/dl Est GFR ( Amer) 51 Est GFR (Non-Af Amer) 42 POC Glucose (mg/dL) (65-110) mg/dL Random Glucose 132 H (70-110) mg/dL Calcium 8.3 L (8.4-10.5) mg/dL Magnesium (1.7-2.2) mg/dL Total Bilirubin (0.2-1.3) mg/dL AST (17-59) U/L ALT (7-56) U/L Alkaline Phosphatase (38-126) U/L Total Protein (5.8-8.3) g/dL Albumin (3.0-4.8) g/dL Globulin gm/dL Albumin/Globulin Ratio (1.1-1.8) Urine Osmolality (300-1000) mosm/kg Ur Random Sodium meq/L 03/05/18 03/05/18 Range/Units 12:34 11:24 WBC (4.5-11.0) 10^3/ul RBC (3.5-6.1) 10^6/uL Hgb (14.0-18.0) g/dL Hct (42.0-52.0) % MCV (80.0-105.0) fl MCH (25.0-35.0) pg MCHC (31.0-37.0) g/dl RDW (11.5-14.5) % Plt Count (120.0-450.0) 10^3/uL MPV (7.0-11.0) fl Sodium (132-148) mmol/L Potassium (3.6-5.0) mmol/L Chloride (98-107) mmol/L Carbon Dioxide (21-33) mmol/L Anion Gap (10-20) BUN (7-21) mg/dL Creatinine (0.8-1.5) mg/dl Est GFR ( Amer) Est GFR (Non-Af Amer) POC Glucose (mg/dL) 114 H (65-110) mg/dL Random Glucose (70-110) mg/dL Calcium (8.4-10.5) mg/dL Magnesium (1.7-2.2) mg/dL Total Bilirubin (0.2-1.3) mg/dL AST (17-59) U/L ALT (7-56) U/L Alkaline Phosphatase (38-126) U/L Total Protein (5.8-8.3) g/dL Albumin (3.0-4.8) g/dL Globulin gm/dL Albumin/Globulin Ratio (1.1-1.8) Urine Osmolality 395 (300-1000) mosm/kg Ur Random Sodium 107 meq/L Laboratory Results - last 24 hr 03/05/18 03/05/18 03/05/18 11:24 12:34 12:50 WBC 5.9 D RBC 2.68 L Hgb 8.6 L D Hct 24.7 L MCV 92.2 D MCH 32.1 MCHC 34.8 RDW 13.6 Plt Count 274 MPV 8.9 Sodium Potassium Chloride Carbon Dioxide Anion Gap BUN Creatinine Est GFR ( Amer) Est GFR (Non-Af Amer) POC Glucose (mg/dL) 114 H Random Glucose Calcium Magnesium Total Bilirubin AST ALT Alkaline Phosphatase Total Protein Albumin Globulin Albumin/Globulin Ratio Urine Osmolality 395 Ur Random Sodium 107 03/05/18 03/05/18 03/05/18 14:10 14:30 16:17 WBC 6.5 RBC 2.99 L Hgb 9.5 L Hct 27.8 L MCV 93.0 MCH 31.8 MCHC 34.2 RDW 13.6 Plt Count 303 MPV 9.2 Sodium 130 L Potassium 4.9 Chloride 99 Carbon Dioxide 23 Anion Gap 14 BUN 27 H Creatinine 1.6 H Est GFR ( Amer) 51 Est GFR (Non-Af Amer) 42 POC Glucose (mg/dL) 91 Random Glucose 132 H Calcium 8.3 L Magnesium Total Bilirubin AST ALT Alkaline Phosphatase Total Protein Albumin Globulin Albumin/Globulin Ratio Urine Osmolality Ur Random Sodium 03/05/18 03/05/18 03/06/18 20:05 21:56 05:30 WBC 5.8 RBC 2.93 L Hgb 9.2 L Hct 27.3 L MCV 93.2 MCH 31.4 MCHC 33.7 RDW 13.7 Plt Count 282 MPV 8.7 Sodium 129 L Potassium 4.5 Chloride 99 Carbon Dioxide 23 Anion Gap 11 BUN 25 H Creatinine 1.6 H Est GFR ( Amer) 51 Est GFR (Non-Af Amer) 42 POC Glucose (mg/dL) 163 H Random Glucose 194 H Calcium 8.0 L Magnesium Total Bilirubin AST ALT Alkaline Phosphatase Total Protein Albumin Globulin Albumin/Globulin Ratio Urine Osmolality Ur Random Sodium 03/06/18 03/06/18 05:30 07:35 WBC RBC Hgb Hct MCV MCH MCHC RDW Plt Count MPV Sodium 134 Potassium 4.5 Chloride 102 Carbon Dioxide 24 Anion Gap 12 BUN 23 H Creatinine 1.6 H Est GFR ( Amer) 51 Est GFR (Non-Af Amer) 42 POC Glucose (mg/dL) 84 Random Glucose 80 Calcium 8.2 L Magnesium 1.9 Total Bilirubin 0.3 AST 26 ALT 26 Alkaline Phosphatase 72 Total Protein 5.5 L Albumin 2.9 L Globulin 2.7 Albumin/Globulin Ratio 1.1 Urine Osmolality Ur Random Sodium Fingerstick Blood Sugar Results: 84 Critical Care Progress Note - Nutrition Nutrition: Nutrition Category Date Time Status Heart Healthy Diet [DIET] Diets 03/02/18 Breakfast Active Assessment/Plan - Assessment and Plan (Free Text) Assessment: 78 year old male under ICU management for hypontremia, likely 2/2 poor po intake with dehydration. Sodium of 106 to sodium of 134 right now; total of 6 U increase in past 24 hours. Acute Kidney Injury - resolving Hx Lung CA Hx Renal CA Hx HTN Patient should be correcting at 6-8 units per 24 hour period. Patient slightyly over-corrected initially, so DDAVP was given by renal team. Patient no longer on hypertonic saline nor on DDAVP. Patient's CR began trending upward, peaking at 2.0, with FeNa of .4, indicating that the hyponatremia was most likely 2/2 to pre-renal azotemia 2/2 hypovolemia 2/2 poor po intake of hydration. Creatinine upward trend was likely 2/2 delayed sloughing of the tubules after initial ZEINA. Plan Neuro: - Maintain normothermia Pulm: - Maintain O2 sats > 92% Cardio: - Maintain MAP > 65 - Patient's bp creeping up, restart home norvasc 10 GI: - Continue GI PPx with pepcid; Zofran PRN for nausea - HHD : - ZEINA, likely 2/2 decreased po intake/hydration - resolving - Hyponatremia, likely 2/2 ZEINA as above - resolving - DDAVP to avoid over-correction of Na no longer needed - Discontinue NS - Maintain euvolemia - C/w home pazopanib for renal CA ID: - No acute ID issues Endo: - Maintain euglycemia 140-180 - Hold home oral antihyperglycemic, keep patient on RISS - low Heme: - SCD's for DVT PPX Dispo: At this time, patient's hyponatremia has resolved, and he is off hypertonic saline. Patient stable for transfer to remote [facility], as no acute electrolyte disturbances, and RRR. <Susi Fermin - Last Filed: 03/06/18 17:43> CCU Objective - Vital Signs / Intake & Output Vital Signs (Last 4 hours): Vital Signs Temp Pulse Resp BP Pulse Ox 03/06/18 16:25 98.3 F 74 19 131/62 98 03/06/18 15:00 60 14 119/53 L 97 03/06/18 14:50 73 13 100 03/06/18 14:40 59 L 15 100 03/06/18 14:30 62 17 100 03/06/18 14:20 65 16 96 03/06/18 14:10 74 18 86 L 03/06/18 14:00 60 14 114/64 99 03/06/18 13:50 61 15 100 Intake and Output (Last 8hrs): Intake & Output 03/06/18 03/06/18 03/06/18 06:59 14:59 22:59 Intake Total 470 720 Output Total 800 Balance -330 720 Intake: IV 170 400 3%S 120 Left Antecubital 50 Right Hand 400 Oral 300 320 Output: Urine 800 Condom 800 Emesis 0 Other: # Bowel Movements 0 - Medications Active Medications: Active Medications Generic Name Dose Route Start Last Admin Trade Name Freq PRN Reason Stop Dose Admin Acetaminophen 650 mg 03/01/18 18:45 Tylenol 325mg Tab PO Q6H PRN Temperature Amlodipine Besylate 10 mg 03/04/18 10:00 03/05/18 09:49 Norvasc PO 10 mg DAILY MAURA Administration Benzocaine/Menthol 1 jimenez 03/02/18 15:09 03/02/18 15:25 Cepacol Sore Throat MT 1 jimenez Q2H PRN Administration Sore Throat Enoxaparin Sodium 30 mg 03/03/18 10:00 03/06/18 10:26 Lovenox SC 30 mg DAILY MAURA Administration Protocol Famotidine 20 mg 03/05/18 10:00 03/06/18 10:27 Pepcid PO 20 mg DAILY MAURA Administration Haloperidol Lactate 2 mg 03/04/18 21:03 03/05/18 04:30 Haldol IM 2 mg Q6 PRN Administration confusion/psychosis Protocol Sodium Chloride 1,000 mls @ 100 mls/hr 03/05/18 15:15 03/05/18 15:15 Sodium Chloride 0.9% IV 100 mls/hr .Q10H MAURA Administration Insulin Human Regular 0 units 03/02/18 11:30 03/06/18 16:47 Humulin R Low SC Not Given ACHS [facility] Protocol Quetiapine Fumarate 25 mg 03/05/18 18:00 03/06/18 17:11 Seroquel PO 25 mg BID MAURA Administration Protocol - Patient Studies Lab Studies: Lab Studies 03/06/18 03/06/18 03/06/18 Range/Units 16:27 16:10 11:20 WBC (4.5-11.0) 10^3/ul RBC (3.5-6.1) 10^6/uL Hgb (14.0-18.0) g/dL Hct (42.0-52.0) % MCV (80.0-105.0) fl MCH (25.0-35.0) pg MCHC (31.0-37.0) g/dl RDW (11.5-14.5) % Plt Count (120.0-450.0) 10^3/uL MPV (7.0-11.0) fl Sodium 134 (132-148) mmol/L Potassium 4.7 (3.6-5.0) mmol/L Chloride 102 (98-107) mmol/L Carbon Dioxide 22 (21-33) mmol/L Anion Gap 15 (10-20) BUN 26 H (7-21) mg/dL Creatinine 1.6 H (0.8-1.5) mg/dl Est GFR ( Amer) 51 Est GFR (Non-Af Amer) 42 POC Glucose (mg/dL) 138 H 121 H (65-110) mg/dL Random Glucose 111 H (70-110) mg/dL Calcium 8.5 (8.4-10.5) mg/dL Magnesium (1.7-2.2) mg/dL Total Bilirubin (0.2-1.3) mg/dL AST (17-59) U/L ALT (7-56) U/L Alkaline Phosphatase (38-126) U/L Total Protein (5.8-8.3) g/dL Albumin (3.0-4.8) g/dL Globulin gm/dL Albumin/Globulin Ratio (1.1-1.8) Complement C3 (88.0-165.0) mg/dL Complement C4 (14.0-44.0) mg/dL Hep Bs Antigen (NEGATIVE) 03/06/18 03/06/18 03/06/18 Range/Units 07:35 05:30 05:30 WBC (4.5-11.0) 10^3/ul RBC (3.5-6.1) 10^6/uL Hgb (14.0-18.0) g/dL Hct (42.0-52.0) % MCV (80.0-105.0) fl MCH (25.0-35.0) pg MCHC (31.0-37.0) g/dl RDW (11.5-14.5) % Plt Count (120.0-450.0) 10^3/uL MPV (7.0-11.0) fl Sodium 134 (132-148) mmol/L Potassium 4.5 (3.6-5.0) mmol/L Chloride 102 (98-107) mmol/L Carbon Dioxide 24 (21-33) mmol/L Anion Gap 12 (10-20) BUN 23 H (7-21) mg/dL Creatinine 1.6 H (0.8-1.5) mg/dl Est GFR ( Amer) 51 Est GFR (Non-Af Amer) 42 POC Glucose (mg/dL) 84 (65-110) mg/dL Random Glucose 80 (70-110) mg/dL Calcium 8.2 L (8.4-10.5) mg/dL Magnesium 1.9 (1.7-2.2) mg/dL Total Bilirubin 0.3 (0.2-1.3) mg/dL AST 26 (17-59) U/L ALT 26 (7-56) U/L Alkaline Phosphatase 72 (38-126) U/L Total Protein 5.5 L (5.8-8.3) g/dL Albumin 2.9 L (3.0-4.8) g/dL Globulin 2.7 gm/dL Albumin/Globulin Ratio 1.1 (1.1-1.8) Complement C3 101.0 (88.0-165.0) mg/dL Complement C4 35.8 (14.0-44.0) mg/dL Hep Bs Antigen Negative (NEGATIVE) 0803/05/18 03/05/18 Range/Units 05:30 21:56 20:05 WBC 5.8 (4.5-11.0) 10^3/ul RBC 2.93 L (3.5-6.1) 10^6/uL Hgb 9.2 L (14.0-18.0) g/dL Hct 27.3 L (42.0-52.0) % MCV 93.2 (80.0-105.0) fl MCH 31.4 (25.0-35.0) pg MCHC 33.7 (31.0-37.0) g/dl RDW 13.7 (11.5-14.5) % Plt Count 282 (120.0-450.0) 10^3/uL MPV 8.7 (7.0-11.0) fl Sodium 129 L (132-148) mmol/L Potassium 4.5 (3.6-5.0) mmol/L Chloride 99 (98-107) mmol/L Carbon Dioxide 23 (21-33) mmol/L Anion Gap 11 (10-20) BUN 25 H (7-21) mg/dL Creatinine 1.6 H (0.8-1.5) mg/dl Est GFR ( Amer) 51 Est GFR (Non-Af Amer) 42 POC Glucose (mg/dL) 163 H (65-110) mg/dL Random Glucose 194 H (70-110) mg/dL Calcium 8.0 L (8.4-10.5) mg/dL Magnesium (1.7-2.2) mg/dL Total Bilirubin (0.2-1.3) mg/dL AST (17-59) U/L ALT (7-56) U/L Alkaline Phosphatase (38-126) U/L Total Protein (5.8-8.3) g/dL Albumin (3.0-4.8) g/dL Globulin gm/dL Albumin/Globulin Ratio (1.1-1.8) Complement C3 (88.0-165.0) mg/dL Complement C4 (14.0-44.0) mg/dL Hep Bs Antigen (NEGATIVE) Laboratory Results - last 24 hr 03/05/18 03/05/18 03/06/18 20:05 21:56 05:30 WBC 5.8 RBC 2.93 L Hgb 9.2 L Hct 27.3 L MCV 93.2 MCH 31.4 MCHC 33.7 RDW 13.7 Plt Count 282 MPV 8.7 Sodium 129 L Potassium 4.5 Chloride 99 Carbon Dioxide 23 Anion Gap 11 BUN 25 H Creatinine 1.6 H Est GFR ( Amer) 51 Est GFR (Non-Af Amer) 42 POC Glucose (mg/dL) 163 H Random Glucose 194 H Calcium 8.0 L Magnesium Total Bilirubin AST ALT Alkaline Phosphatase Total Protein Albumin Globulin Albumin/Globulin Ratio Complement C3 Complement C4 Hep Bs Antigen 03/06/18 03/06/18 03/06/18 05:30 05:30 07:35 WBC RBC Hgb Hct MCV MCH MCHC RDW Plt Count MPV Sodium 134 Potassium 4.5 Chloride 102 Carbon Dioxide 24 Anion Gap 12 BUN 23 H Creatinine 1.6 H Est GFR ( Amer) 51 Est GFR (Non-Af Amer) 42 POC Glucose (mg/dL) 84 Random Glucose 80 Calcium 8.2 L Magnesium 1.9 Total Bilirubin 0.3 AST 26 ALT 26 Alkaline Phosphatase 72 Total Protein 5.5 L Albumin 2.9 L Globulin 2.7 Albumin/Globulin Ratio 1.1 Complement C3 101.0 Complement C4 35.8 Hep Bs Antigen Negative 03/06/18 03/06/18 03/06/18 11:20 16:10 16:27 WBC RBC Hgb Hct MCV MCH MCHC RDW Plt Count MPV Sodium 134 Potassium 4.7 Chloride 102 Carbon Dioxide 22 Anion Gap 15 BUN 26 H Creatinine 1.6 H Est GFR ( Amer) 51 Est GFR (Non-Af Amer) 42 POC Glucose (mg/dL) 121 H 138 H Random Glucose 111 H Calcium 8.5 Magnesium Total Bilirubin AST ALT Alkaline Phosphatase Total Protein Albumin Globulin Albumin/Globulin Ratio Complement C3 Complement C4 Hep Bs Antigen Critical Care Progress Note - Nutrition Nutrition: Nutrition Category Date Time Status Heart Healthy Diet [DIET] Diets 03/02/18 Breakfast Active Addendum Addendum: 03/06/18 17:41 ICU Attending Addendum: Patient seen and examined. Case reviewed on round with housestaff. Agree with resident note above with the following additions/exceptions: 78yo male with PMhx of Renal Ca with mets and HTN presented being treated in the MICU for severe hyponatremia. Unclear etiology. Patient was having n/v which may have contributed to it. He is also worsened his renal function. 3% stopped, on NS sodium stabilized would stop fluids for now etiology may be caused by his RCC chemo med (panapazib) trend BMP f/u nephro rec haldol for delirium - likely ICU delirium ok to transfer out of ICU Susi Fermin MD Certified Court/Medical Interpreter Critical care time : 35 mins
[2018-03-06 12:19] LABS: COMPLEMENT C4 35.8 mg/dL (14.0-44.0)
[2018-03-06 12:42] LABS: HEPATITIS B SURFACE AG Negative (NEGATIVE)
--- NOTE | 2018-03-06 15:20 | PN ---
Copied To: Francesco Lyman MD Attending MD: Francesco Lyman MD DATE: 03/06/2018 PULMONARY PROGRESS NOTE REFERRING PHYSICIAN: Guillermina Garcia MD SUBJECTIVE: He is lying in the reclining chair. Family is at bedside. Night was unremarkable. Much more awake and alert. No nausea. No vomiting. No diarrhea. No leg pain or leg swelling. Admits to loud snoring, dry mouth during the daytime. OBJECTIVE: GENERAL: In no acute distress. VITAL SIGNS: Temperature is 98, heart rate 74, respiratory rate is 18, blood pressure 115/48, pulse ox 99% on room air. HEENT: Small oral cavity. Crowded airway. Dry mucous membrane. LUNGS: Have a fair airflow with scattered rhonchi. HEART: S1 and S2. ABDOMEN: Soft, nontender. No organomegaly. EXTREMITIES: No edema. NEUROLOGICAL: Awake and alert. Follows simple command. MEDICATIONS: He is on Cepacol lozenges every 2 hours p.r.n., Haldol 2 m every 6 hours p.r.n., insulin coverage, Lovenox 30 mg daily, Norvasc 10 mg daily, Pepcid 20 mg daily, Seroquel 25 mg twice a day, IV fluid, normal saline 100 mL/hour, Tylenol p.r.n. basis. LABORATORY DATA: Shows hemoglobin 9.2, hematocrit 27.3, WBC 5.8, platelet is 282. Sodium 134, potassium 4.5, chloride 102, bicarbonate 24, BUN 23, creatinine 1.6, glucose is 80, calcium 8.2, magnesium 1.9, AST 26, ALT 26, alkaline phosphatase is 72. Albumin is 2.9. Microbiology: Blood culture, urine culture, nasal culture is all unremarkable. IMPRESSION AND PLAN: Status post severe hyponatremia, which has been corrected. Unresectable lung cancer, been on p.o. chemotherapy, also has history of renal cell carcinoma requiring nephrectomy. Presently suspected metastases to the liver. May have sleep apnea syndrome. Spoke to family at bedside. All the questions answered. Sleep apnea precaution. Keep head at 45 degrees. Bronchodilator, gastric prophylaxis, deep vein thrombosis prophylaxis. Upon discharge as outpatient, we will need attended sleep study. Thank you and we will follow with you. Francesco Lyman MD [facility] # [id number]
--- NOTE | 2018-03-06 16:15 | CON ---
Copied To: April Corbett MD Attending MD: April Corbett MD DATE: 03/06/2018 CONSULTATION NOTE HISTORY OF PRESENT ILLNESS: Shortly, the patient is a 78-year-old male with not known previous psychiatric history. The patient denied any history of mental illness. The patient was admitted to ICU, change in mental status. The patient also had severe electrolyte imbalance and was admitted in ICU. The patient also has multiple medical problems including history of lung cancer; history of renal cancer, status post nephrectomy; history of hypertension. In the ICU, the patient's sodium level was 118, 119. The patient also was severely dehydrated. The patient was seen and examined. The patient presented to be alert. The patient knows that he is in the hospital, but does not know what is the name of the hospital. The patient knows the month, but was not sure what year it is. The patient thought that today is Friday, but is not aware of the year. The patient presented well. The patient reported that he feels much better to compare with the time of admission. The patient reported that he sleeps well. Denied any physical complaints. Denied any discomfort. The patient denied ever been talking to psychiatrist in the past. The patient reported that usually his daughter is taking care of his medical issues, but the patient denied that he has power of patent prosecution attorney. This issue need to be discussed in the future in order to have legal papers because the patient has multiple medical comorbidities. Please consider to have advance directives to be discussed when the patient will be feeling better. Collateral information were obtained from the nursing staff. Overnight, the patient was combative, agitated, required to have haloperidol 2 mg two doses and first dose was on 03/04/2018 and second dose was on 03/05/2018. The patient also was started on Seroquel 25 mg twice a day, agree with that. Labs reviewed. Chemistry: The patient's sodium level is 134 today. The patient was seen by multiple specialists including panel edge sealer, neurologist, club concierge and all notes reviewed. MENTAL STATUS EXAMINATION: As this check writer described, the patient is alert, knows that he is in the hospital was not aware about year. The patient is oriented in self. The patient presented with "very good mood, I feel better." Affect was reactive, mood congruent. Thought process coherent, goal directed. At times, the patient had difficulties to stay focused during the interview, but it is mostly because of delirium stage. Insight and judgment seems to be improving. Impulses are better controlled. IMPRESSION: The patient is obviously in delirium stage, visual hallucinations, usually related to medical issues which the patient had a lot. The patient's electrolytes imbalance also could contribute to the patient's presentation and also multiple medical issues including lung cancer as well as renal cancer, status post nephrectomy. The patient also was severely dehydrated, also contributed to the patient's delirium stage. By the way the patient is improving significantly. PLAN: Continue Seroquel as it is. I will change haloperidol to Geodon 10 mg every 8 hours as needed for agitation. Discussion about power of patent prosecution attorney took place today. household worker evaluation for that. Advance directives needs to be discussed. Dr. Skelton will be seeing the patient over the weekend. Of course, advance directive papers need to be signed after mental status improved. Thank you very much for letting me participate in the care of your patient. Should you have any questions, give me a call back. Thank you very much. April Corbett MD
[2018-03-06 16:25] VITALS: O2SAT 98
[2018-03-06 16:35] LABS: CALCIUM 8.5 mg/dL (8.4-10.5)
--- NOTE | 2018-03-06 17:16 | PN ---
Copied To: Markie Vazquez MD Attending MD: Markie Vazquez MD DATE: 03/06/2018 NEUROLOGY FOLLOWUP CHIEF COMPLAINT: Follow up for altered mental status. SUBJECTIVE: The patient is lying in the reclining chair, more awake and alert. His sodium level is much better, it is up to 134 today which is in normal limits. He had severe hyponatremia, which is being corrected. He has unresectable lung cancer for which he has been on chemotherapy and also renal cell carcinoma requiring nephrectomy. CAT scan of the head showed no acute intracranial abnormalities. Psychiatry is on board who recommend to continue with Seroquel for his underlying delirium, which is likely secondary to ICU delirium and his underlying metabolic derangements. PAST MEDICAL HISTORY: History of renal cell carcinoma status post nephrectomy, history of unresectable lung cancer status post chemotherapy, history of hypertension, and dyslipidemia. FAMILY HISTORY: Noncontributory. ALLERGIES: NO KNOWN DRUG ALLERGIES. REVIEW OF SYSTEMS: Fourteen-point review of systems is negative except as per the HPI. SOCIAL HISTORY: No illicit drug use, smoking, or EtOH abuse at this time. MEDICATIONS: Reviewed by nurse's reconciliation sheet. PHYSICAL EXAMINATION: VITAL SIGNS: Temperature afebrile, pulse rate of 73, blood pressure of 119/53, respiratory rate of 14, oxygen saturation 97% by nasal cannula. GENERAL: The patient is sitting up in bed, in no acute distress. HEENT: Head is atraumatic, normocephalic. PERRLA. Extraocular muscles intact. NECK: Supple. No JVD. No adenopathy noted. LUNGS: Clear to auscultation. No adventitious sounds. HEART: S1 and S2. Normal rate and rhythm. No murmurs, rubs, or gallops. ABDOMEN: Soft, nontender, and nondistended. Bowel sounds are present. EXTREMITIES: No clubbing. No cyanosis. Peripheral pulses 2+ felt bilaterally. NEUROLOGIC: The patient is alert and oriented to person and place, not much to month or year. Recall after 5 minutes is 1/3. Poor attention span and slow thought process. Cranial nerves II through XII are intact. Motor: Moves all extremities equally. Toes are downgoing bilaterally. Sensory: Decreased light touch and pinprick up to the calves bilaterally. Decreased vibration of the toes. DTRs are 2+ throughout, 1 at both knees and ankles. Coordination: [id number] intact. No dysmetria noted. Gait is deferred for now. LABORATORY DATA: Sodium is 134, potassium 4.5, chloride of 102, carbon dioxide 24, BUN of 23, creatinine 1.6, random glucose of 80. ASSESSMENT AND PLAN: Altered mental status secondary to intensive care unit delirium and delirium from metabolic encephalopathy, severe hyponatremia which is corrected. At this time, we will recommend; 1. Monitor electrolytes and correct accordingly. 2. Continue with Seroquel for any agitation and delirium. 3. Thiamine 100 mg p.o. daily. 4. PT/OT evaluation. Continue with current present medical management. Thank you for this followup. Markie Vazquez MD
[2018-03-07 00:15] VITALS: RESP 20
--- NOTE | 2018-03-07 04:04 | PN ---
Copied To: Guillermina Garcia MD Attending MD: Watson Garcia MD DATE: 03/06/2018 SUBJECTIVE: Patient seen and examined at the bedside, looking comfortable. No nausea or vomiting. No hematuria or hematochezia. Patient is sleepy, arousable, moving all 4 extremities. No focal deficits. PHYSICAL EXAMINATION: VITAL SIGNS: Temperature 98, heart rate 74, respiratory rate 18, blood pressure 115/48, pulse oximetry 99% on room air. HEENT: Head normocephalic, atraumatic. Eyes PERRLA. Extraocular muscles intact. Conjunctivae clear. Nose patent. Mucous membranes moist. NECK: Supple. No carotid bruits, JVD or thyromegaly. CHEST: Bilaterally symmetrical. HEART: S1, S2 positive. LUNGS: Clear to auscultation. ABDOMEN: Soft, bowel sounds present, no organomegaly. EXTREMITIES: No edema, no cyanosis. NEUROLOGIC: Patient is sleepy, arousable. Follows simple orders. MEDICATIONS: Cepacol lozenges, Haldol, insulin, Norvasc, Pepcid, Seroquel, NS. LABORATORY DATA: Hemoglobin 9.2, hematocrit 27.3, white blood cell 5.8, platelets 282. Sodium 134, potassium 4.5, BUN 23, creatinine 1.6, AST 26, ALT 26. ASSESSMENT AND PLAN: Mr. Gilberto Robert is a 78-year-old male status post severe hyponatremia which has been corrected, Unresected lung cancer, on p.o. chemotherapy, has history of renal cell carcinoma, requiring nephrectomy, suspect metastasis to the liver, sleep apnea syndrome. Dr. Lyman spoke to the family. Keep head elevated, bronchodilators, gastric prophylaxis. We will decrease Haldol. Patient can go to Transitional Care Unit, out of bed, physical therapy. Appreciated Dr. Vazquez, Dr. Lyman and Dr. April Corbett's input. We will follow up. Guillermina Garcia MD
[2018-03-07] MEDS: Insulin Reg-LOW-Coverage SC SCH ×2 (07:00→11:30)
--- NOTE | 2018-03-07 07:45 | CP.PCM.PN ---
Subjective - Date & Time of Evaluation Date of Evaluation: 03/06/18 Time of Evaluation: 22:15 - Subjective Subjective: Patient transferred out of ICU today; reports feeling well; no sob, nausea/ vomiting; tolerating diet; Objective - Vital Signs/Intake and Output Vital Signs (last 24 hours): Temp Pulse Resp BP Pulse Ox 97.8 F 65 20 130/57 L 98 03/07/18 00:00 03/07/18 06:00 03/07/18 00:00 03/07/18 00:00 03/07/18 00:00 Intake and Output: 03/07/18 03/07/18 06:59 18:59 Intake Total 500 Output Total 400 Balance 100 - Medications Medications: Current Medications Acetaminophen (Tylenol 325mg Tab) 650 mg PO Q6H PRN PRN Reason: Temperature Amlodipine Besylate (Norvasc) 10 mg PO DAILY [facility] Last Admin: 03/05/18 09:49 Dose: 10 mg Benzocaine/Menthol (Cepacol Sore Throat) 1 jimenez MT Q2H PRN PRN Reason: Sore Throat Last Admin: 03/02/18 15:25 Dose: 1 jimenez Enoxaparin Sodium (Lovenox) 30 mg SC DAILY [facility] PRN Reason: Protocol Last Admin: 03/06/18 10:26 Dose: 30 mg Famotidine (Pepcid) 20 mg PO DAILY [facility] Last Admin: 03/06/18 10:27 Dose: 20 mg Haloperidol Lactate (Haldol) 1 mg IM Q8 [facility] PRN Reason: Protocol Last Admin: 03/07/18 06:48 Dose: Not Given Insulin Human Regular (Humulin R Low) 0 units SC ACHS [facility] PRN Reason: Protocol Last Admin: 03/06/18 21:44 Dose: Not Given Quetiapine Fumarate (Seroquel) 25 mg PO BID [facility] PRN Reason: Protocol Last Admin: 03/06/18 17:11 Dose: 25 mg - Labs Labs: 03/06/18 05:30 03/06/18 16:10 PT 12.8 SECONDS (9.4-12.5) H 03/01/18 12:05 INR 1.11 03/01/18 12:05 APTT 26.3 Seconds (25.1-36.5) 03/01/18 12:05 - Constitutional Appears: Non-toxic, No Acute Distress - Eye Exam Eye Exam: absent: Scleral icterus - Respiratory Exam Respiratory Exam: Clear to Ausculation Bilateral. absent: Respiratory Distress - Cardiovascular Exam Cardiovascular Exam: RRR, +S1, +S2 - GI/Abdominal Exam GI & Abdominal Exam: Soft. absent: Distended, Tenderness - Extremities Exam Additional comments: minimal lower leg edema; - Neurological Exam Neurological Exam: Alert, Awake - Psychiatric Exam Psychiatric exam: Normal Mood. absent: Agitated - Skin Skin Exam: Warm. absent: Cyanosis Assessment and Plan (1) Hyponatremia Assessment & Plan: Resolving; likely hypovolemic hyponatremia in the setting of GI losses, decreased PO intake and being on diuretic; hypertonic saline restarted overnight due to concern that Na wasn't rising with NS and urine osm was still high (~400), discontinued this morning; -continue NS at 100 cc/hr to correct underlying volume depletion; -monitor serum Na, osm daily; Status: Acute (2) ZEINA (acute kidney injury) Assessment & Plan: ZEINA on CKD III; likely pre-renal etiology, resolving with volume repletion; continue IVF as above; Status: Acute (3) HTN (hypertension) Assessment & Plan: Patient mildly hypotensive this morning; amlodipine held; continue IVF; Status: Acute (4) CKD (chronic kidney disease) Assessment & Plan: s/p L nephrectomy for RCC; also with proteinuria in the setting of DM as well as being on VEGF inhibitor for chemo; further serologic workup sent, will f/u; 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
[2018-03-07 07:57] VITALS: BP 132/68; PULSE 67; TEMP 98.1
[2018-03-07] MEDS: Enoxaparin 30 mg Syringe SC SCH (09:54)
--- NOTE | 2018-03-07 12:48 | PN ---
Copied To: Christine Corona MD Attending MD: Christine Corona MD DATE: 03/07/2018 SUBJECTIVE: This 78-year-old male remains hospitalized with multiple comorbidities including metastatic renal cell cancer, status post left nephrectomy. I am seeing this patient on behalf of Dr. Ajay Muniz, service observer for whom I am covering. The patient remains weak and deconditioned. He is being evaluated for transitional care rehab and has multiple comorbidities including recent admission for nausea, vomiting, diarrhea with electrolyte imbalances including hyponatremia, now improved, azotemia, hypochloremia with past medical history significant also for chronic hypertension, anemia of chronic disease, type 2 diabetes mellitus and chronic renal insufficiency. On review of this patient's EMR, current medications include Cepacol throat lozenges, Haldol, Humulin R insulin, subcu Lovenox, Pepcid, Seroquel, Tylenol with Norvasc on hold for hypertension therapy. PHYSICAL EXAMINATION: GENERAL: On physical exam today, the patient remains weak and deconditioned, alert and oriented. VITAL SIGNS: Temperature of 98.1, respirations 20, pulse 67 and blood pressure 132/68 and pulse ox 98% on room air. HEAD: Normocephalic, atraumatic. Eyes, no icterus. Ears: Clear. Throat: Noninjected. NECK: Supple. HEART: S1, S2. LUNGS: Clear. ABDOMEN: Soft. EXTREMITIES: No edema. SKIN: No rash. VASCULAR: Legs warm to touch. PSYCHOLOGICAL: Alert. NEURO: Weak and deconditioned. LABORATORY DATA: Sodium 134, K 4.7, chloride 102, bicarb 22, BUN 26, creatinine 1.6. Estimated GFR 42 mL per minute. Random blood sugar 78, calcium 8.5. White count 5800, hemoglobin 9.2, hematocrit 27.3, MCV 93.2, platelets 282,000. PT/INR 1.11, PTT 26.3. Hepatitis B and C serology unremarkable with a urine sodium of 86 and urine osmolarity of 246. IMPRESSION: A 78-year-old male admitted with nausea, vomiting, diarrhea, hyponatremia in the setting of left nephrectomy and metastatic renal cell cancer, hyponatremia, felt to be secondary to GI loss, decreased p.o. intake and previous diuretic therapy. The patient was given a course of hypertonic saline, then 0.9 saline and has a history of prerenal azotemia resolving volume depletion, chronic hypertension, history of left nephrectomy with non-nephrotic proteinuria in the setting of BRIAN inhibitor now discontinued for chronic hypertension. PLAN: The plan as discussed with the patient and nursing will be to continue medications as outlined. He is awaiting a TCU evaluation. IV fluids have been discontinued and he continues on a heart-healthy soft bland diet. He will continue on antiembolism stockings, physical therapy with disposition to be decided based on clinical progress. All of the above was discussed with co-consultants including Dr. Vazquez from Neurology, who was following the patient because of altered mental status and weakness and co-consultants from Hematology/Oncology and Critical Care. All of the above was discussed in detail. All questions were answered. Christine Corona MD [facility]
[2018-03-07 14:10] LABS: CREATININE,RANDOM URINE 35 mg/dL
[2018-03-07 14:16] LABS: OSMOLALITY,URINE 334 mosm/kg (300-1000)
--- NOTE | 2018-03-07 23:55 | CON ---
Copied To: Joon Skelton MD Attending MD: Joon Skelton MD DATE: 03/07/2018 HISTORY OF PRESENT ILLNESS: The patient is a 78-year-old male with no previous psychiatric history, who was seen by Psychiatry for confusion and behavioral disturbance related to ongoing delirium. I reviewed Dr. Corbett's notes, which indicated patient was confused, disoriented and actually had bouts of combative and agitated behavior overnight on the medical floor. Patient's mental status has been gradually improving with his medical condition, and when I interviewed him at the bedside, he is alert and oriented too. He is actually alert and oriented to month, year, location and circumstances. Patient continuously denies having any issues with mood and reports that he was feeling fine. He denies any perceptual disturbance, he does not appear to be responding to internal stimuli. Reports that he slept well. He is nervous about current medical situation; however, this is within acceptable level. He appears generally related in focus. He is slow, but appears to be definitely improved from since his prior evaluations by other providers. Insight and judgement are improving and his responses are coherent. His vital signs and labs were reviewed. MEDICATIONS: Relevant psychiatric medications include Seroquel 25 mg p.o. b.i.d. as well as Haldol 1 mg IM every 8 as scheduled. IMPRESSION: Delirium, which appears to be improving. RECOMMENDATIONS: At this time, Haldol IM could be discontinued. Please continue Seroquel 25 mg p.o. b.i.d. and gradually taper off to 25 mg at bedtime in 2 days and then 2 days later continue . There is no psychiatric [place] diagnoses at this time. All the symptoms were medically related; that is, related to delirium. Delirium either appears to be resolved where he is in lucid state of fluctuating symptoms of delirium recurrence. Psychiatrically he is cleared. Medically he has to be assessed by his medical team to determine whether he still appears to be affected by delirium and has continued medical care in this respect. as noted, he is psychiatrically cleared in this respect. Joon Skelton MD [facility] # [id number]
--- NOTE | 2018-03-08 02:25 | DS ---
03/07/18 Copied To: Guillermina Garcia MD Attending MD: Guillermina Garcia MD CHIEF COMPLAINT: GI problem. HISTORY OF PRESENT ILLNESS: Mr. Gilberto Robert, 78-year-old male with past medical history of lung cancer and diabetes mellitus. Came to [facility] emergency room with family. Complaining of nauseousness , vomiting, diarrhea. The patient has noted right-sided chest pain for 1 day. The patient saw his PMD 2 days ago, who prescribed Zofran, Lomotil, Protonix without significant relief in symptoms. The patient failed outpatient treatment that is why he came to [facility] emergency room on 03/01/2018 and got admitted, did CAT scan of the chest, had chest x-ray, abdominal and pelvis CT. Seen by Dr. Ajay Muniz, system validation engineer; Dr. Markie Vazquez, neurologist; Dr. April Corbett saw the patient because the patient became delirious in the unit and the patient was seen by the teacher advisor, Dr. Aniceto Russo also and Dr. Lyman. The patient improved. Getting better. Transferred to TCU for continuity of care and for physical therapy. PAST MEDICAL HISTORY: Hypertension, lung cancer, diabetes mellitus type 2, kidney CA, lung CA. FAMILY HISTORY: Father and mother, noncontributory. HABITS: Former smoker. No alcohol. No substance use. ALLERGIES: THE PATIENT IS NOT ALLERGIC WITH ANY MEDICATION. HOME MEDICATIONS: Reviewed by me. REVIEW OF SYSTEMS: The patient was seen and examined on the bedside, looking comfortable. No nausea, vomiting, diarrhea. No hematuria or hematochezia. No headache. No dizziness. No chest pain. No palpitation. Oriented x3. PHYSICAL EXAMINATION: VITAL SIGNS: Temperature 98.1, pulse 70, respiratory rate 20, blood pressure 113/68. HEENT: Head normocephalic, atraumatic. Eyes PERRLA. Extraocular muscles intact. Conjunctivae clear. Nose patent. Mucous membrane moist. NECK: Supple. No carotid bruit. No JVD or thyromegaly. CHEST: Bilaterally symmetrical. HEART: S1 and S2 positive. LUNGS: Clear to auscultation. ABDOMEN: Soft. Bowel sounds positive. No organomegaly. EXTREMITIES: No edema. No cyanosis. NEUROLOGICAL: The patient is awake and alert. Moving all 4 extremities. No focal deficits. LABORATORY DATA: Sodium 134, potassium 4.7, BUN 26, creatinine 1.6, blood sugar 78, calcium 8.5. White blood cells 5800, hemoglobin 9.2, hematocrit 27.3. ASSESSMENT AND PLAN: Mr. Gilberto Robert, 78-year-old male, came with nausea, vomiting, diarrhea, hyponatremia in the setting of left nephrectomy and metastatic renal cell cancer. Hyponatremia felt it could be secondary to the gastrointestinal loss, decreased p.o. intake and previous diuretic therapy. The patient was given a course of hypertonic saline, now the patient is getting 0.9 saline in the presence of prerenal azotemia, resolving volume depletion, chronic hypertension, history of left nephrectomy with non-nephrotic proteinuria in the setting of BRIAN inhibitor, history of hypertension. Plan is to discharge the patient to Transitional Care Unit for continuity of care, physical therapy. Seen by the system validation engineer. Continue Cepacol lozenges. Discontinue Haldol. Continue sliding scale, Norvasc, Pepcid, Seroquel, normal saline. Suspected the patient has metastasis to the liver, sleep apnea syndrome. Discontinue the Haldol. The patient's sugar was high. Diet with low carbohydrates, 1800 kilocalorie ADA. I appreciated Dr. Lyman's, Dr. Vazquez's, Dr. April Corbett's input. We will continue treatment on Transitional Care Unit. We will follow up. Guillermina Garcia MD [facility]
--- NOTE | 2018-03-08 13:24 | PN ---
Copied To: Guillermina Garcia MD Attending MD: Guillermina Garcia MD DATE: 03/04/2018 SUBJECTIVE: The patient is seen and examined, looking comfortable. No nausea, vomiting, diarrhea. No hematuria or hematochezia. No swelling of the leg. No chest pain. No palpitation. No headache. No arthritis. Got shortness of breath with exertion. No cough. No fever. No chill. No dysuria. PHYSICAL EXAMINATION: VITAL SIGNS: Temperature 98, heart rate 81, respiratory rate 20, blood pressure 144/88. HEENT: Head normocephalic, atraumatic. Eyes PERRLA. Extraocular muscles intact. Conjunctivae clear. Nose patent. Mucous membrane moist. NECK: Supple. No carotid bruit. No JVD or thyromegaly. CHEST: Bilaterally symmetrical. HEART: S1 and S2 positive. LUNGS: Clear to auscultation. ABDOMEN: Soft. Bowel sounds positive. No organomegaly. EXTREMITIES: No edema. No cyanosis. NEUROLOGICAL: The patient is awake and alert. Moving all 4 extremities. No focal deficits. MEDICATIONS: Cepacol lozenges, insulin, hypertonic saline, Lovenox, Norvasc, Pepcid, Tylenol, Zofran. LABORATORY DATA: Hemoglobin 11, hematocrit 38.9, white blood cells 10.1, platelets 321. INR 1.1. Sodium 121, potassium 4.3, BUN 27, creatinine 1.7. ASSESSMENT AND PLAN: Mr. Gilberto Robert, 78-year-old male with severe hyponatremia, unresectable lung cancer, history of renal cell carcinoma requiring nephrectomy, renal failure, diabetes mellitus, sleep apnea syndrome. Dr. Lyman spoke to the patient's family. Correcting hyponatremia. [employer] is on the case. According to the patient, he had been drinking a lot of free water to protect his kidney because he already has a nephrectomy. The patient had a PET scan in September and was not informed that has metastasis to the liver or pancreas. The patient needs followup with a good oncologist. Meanwhile, we are continuing present treatment, fixing electrolytes. We will follow up. Guillermina Garcia MD [facility] # [id number] JERMAN
[2018-03-10 06:57] LABS: ALBUMIN (PEP) 2.8 g/dL (3.8-4.8); ALPHA-1-GLOBULIN (PEP) 0.4 g/dL (0.2-0.3)
== END 2018-03-07 15:15 | DRG 641 ==
LOC: ED 10:13 → ERH 15:48 → ICU 18:09 → 3RNO 03-06 15:25
PROVIDERS: ADMIT Internal Medicine; ATTEND Internal Medicine
DX: E87.1 Hypo-osmolality and hyponatremia (principal); F05 Delirium due to known physiological condition; N17.9 Acute kidney failure, unspecified; C78.7 Secondary malignant neoplasm of liver and intrahepatic bile duct; C34.90 Malignant neoplasm of unspecified part of unspecified bronchus or lung; E86.1 Hypovolemia; E86.0 Dehydration; E83.51 Hypocalcemia; E87.6 Hypokalemia; E78.5 Hyperlipidemia, unspecified; E87.8 Other disorders of electrolyte and fluid balance, not elsewhere classified; E88.09 Other disorders of plasma-protein metabolism, not elsewhere classified; F17.200 Nicotine dependence, unspecified, uncomplicated; G47.30 Sleep apnea, unspecified; I12.9 Hypertensive chronic kidney disease with stage 1 through stage 4 chronic kidney disease, or unspecified chronic kidney disease; N18.3 Chronic kidney disease, stage 3 (moderate); T50.2X5A Adverse effect of carbonic-anhydrase inhibitors, benzothiadiazides and other diuretics, initial encounter; E11.65 Type 2 diabetes mellitus with hyperglycemia; E11.22 Type 2 diabetes mellitus with diabetic chronic kidney disease; E11.21 Type 2 diabetes mellitus with diabetic nephropathy; D50.9 Iron deficiency anemia, unspecified; D63.8 Anemia in other chronic diseases classified elsewhere; Z85.528 Personal history of other malignant neoplasm of kidney; Z90.5 Acquired absence of kidney; Z92.21 Personal history of antineoplastic chemotherapy; Z79.4 Long term (current) use of insulin; R19.7 Diarrhea, unspecified; R11.2 Nausea with vomiting, unspecified

== ENCOUNTER 2018-03-07 15:18 | Inpatient (IN) | payer MEDICARE, OTHER ==
[2018-03-07] MEDS ORDERED: Benzocaine/Menthol (Cepacol) Lozenge MT PRN (15:24)
[2018-03-07] MEDS ORDERED: Albuterol-Ipratrop 3 mg / 0.5 (3 ml) UD IH PRN (15:41)
--- NOTE | 2018-03-07 16:11 | CON ---
Copied To: Francesco Lyman MD Attending MD: Francesco Lyman MD DATE: 03/07/2018 PULMONARY CONSULT REFERRING PHYSICIAN: Guillermina Garcia MD. REASON FOR CONSULT: Lung cancer, chronic lung disease, may have sleep apnea syndrome. HISTORY OF PRESENT ILLNESS: This is a 78-year-old gentleman, well known to me from acute site of the hospital where he was admitted with severe hyponatremia. Has a known history of renal cell carcinoma with nephrectomy in the remote past, also has a lung cancer, which is unresectable and status post chemoradiation therapy. Originally came to ER with nausea, vomiting, diarrhea, weakness, electrolyte was balanced. Presently, admitted for further care. He is lying in the bed. Admits to have loud snoring, daytime sleepy and tired. No nausea. No vomiting, diarrhea, leg pain, leg swelling. PAST MEDICAL HISTORY: As per history of present illness. ALLERGIES: NONE KNOWN. SOCIAL HISTORY: Stopped smoking many years ago. Denied any alcohol use. FAMILY HISTORY: No significant cardiopulmonary disease reported. MEDICATIONS: He is on Cepacol lozenges every 2 hours p.r.n., insulin coverage, Lovenox 30 mg subcu daily, Norvasc 10 mg daily, Pepcid 20 mg daily, Seroquel 25 mg twice a day, Tylenol p.r.n. basis. REVIEW OF SYSTEMS: No headache, no rhinitis. Has cough, shortness of breath with exertion. Admits to have snoring, daytime sleepy and tired. No nausea. No vomiting. No diarrhea. No leg pain or leg swelling. PHYSICAL EXAMINATION: GENERAL: Lying in the bed, no acute distress. VITAL SIGNS: Temperature is 98, heart rate 67, respiratory rate is 20, blood pressure 132/68, pulse ox 98% on room air. HEENT: Small oral cavity. Crowded airway. NECK: Supple. No JVD. LUNGS: Have a few scattered rhonchi. HEART: S1 and S2. ABDOMEN: Soft, nontender. No organomegaly. EXTREMITIES: No edema. NEUROLOGICAL: Awake and alert. Follows simple commands. LABORATORY DATA: Shows hemoglobin 9.2, hematocrit 27.3, WBC 5.8, platelet is 282. Sodium 135, potassium 4.7, chloride 102, bicarbonate 22, BUN 26, creatinine 1.6, glucose 111, calcium 8.5. Microbiology: Blood culture, nose and urine culture nondiagnostic. IMPRESSION AND PLAN: Status post severe hyponatremia, which is corrected; unresectable lung cancer, been on chemoradiation therapy; history of nephrectomy in the remote past; may have sleep apnea syndrome. Continue bronchodilator. Keep head at [address] him on a continuous positive airway pressure 8 cm 30% oxygen while sleeping. Sleep study upon discharge as outpatient, pulmonary function test as outpatient, oncology followup as outpatient. Fall precaution. Thank you and we will follow with you. Francesco Lyman MD
[2018-03-07 16:50] VITALS: BMI 29.5
[2018-03-07] MEDS ORDERED: Pneumococcal 23-Valent Vaccine IM ONE (16:50)
[2018-03-07] MEDS: Insulin Reg-LOW-Coverage SC SCH ×2 (17:07→21:46)
[2018-03-08] MEDS: Enoxaparin 30 mg Syringe SC SCH (05:29)
[2018-03-08] MEDS: Insulin Reg-LOW-Coverage SC SCH ×4 (06:49→21:31)
--- NOTE | 2018-03-08 11:58 | CP.PCM.CON ---
<BrainArben araya - Last Filed: 03/08/18 11:52> History of Present Illness - History of Present Illness History of Present Illness: Podiatry consult notes for attending Dr Giang 78 Y/O M patient with PMH of HTN and chronic kidney disease. seen and evaluated at the bed side for bilateral ankle pain. Patient states that yesterday he started to develop pain in both his ankles. Patient states that the pain was sever and he couldn't tolerate it. He states that the pain is continuous and increases by moving his ankles. Patient denies having similar pain before. Patient denies any other pedal complaints at this time. Patient denies any trauma to his ankles. Patient denies any recent F/N/V/C or SOD. PMH: HTN and chronic kidney disease. PSH: Stomach surgery Allergies: NKDA Social Hx: Denies smoking, ETOH use or illicit drug use. Review of Systems - Review of Systems Review of Systems: As per HPI Past Patient History - Infectious Disease Hx of Infectious Diseases: None - Past Medical History & Family History Past Medical History?: Yes - Past Social History Smoking Status: Former Smoker - CARDIAC Hx Hypertension: Yes - PULMONARY Hx Respiratory Disorders: Yes (lung CA) - NEUROLOGICAL Hx Neurological Disorder: No - HEENT Hx HEENT Problems: No - RENAL Hx Chronic Kidney Disease: Yes Hx Renal (Kidney) Cancer: Yes - ENDOCRINE/METABOLIC Hx Diabetes Mellitus Type 2: Yes - HEMATOLOGICAL/ONCOLOGICAL Hx Anemia: Yes Other/Comment: kideny ca. lung ca - INTEGUMENTARY Hx Dermatological Problems: Yes - MUSCULOSKELETAL/RHEUMATOLOGICAL Hx Falls: No - GASTROINTESTINAL Hx Gastrointestinal Disorders: No - GENITOURINARY/GYNECOLOGICAL Hx Genitourinary Disorders: (renal cell ca/L nephrectomy) Hx Reproductive Disorders: Yes (vasectomy) - PSYCHIATRIC Hx Psychophysiologic Disorder: No - SURGICAL HISTORY Other/Comment: solitary kidney - ANESTHESIA Hx Anesthesia: Yes Hx Anesthesia Reactions: No Hx Malignant Hyperthermia: No Meds Allergies/Adverse Reactions: Allergies Allergy/AdvReac Type Severity Reaction Status Date / Time No Known Allergies Allergy Verified 07/20/15 12:08 - Medications Medications: Current Medications Acetaminophen (Tylenol 325mg Tab) 650 mg PO Q4H PRN; Protocol PRN Reason: Temperature Last Admin: 03/08/18 10:47 Dose: 650 mg Albuterol/Ipratropium (Duoneb 3 Mg/0.5 Mg (3 Ml) Ud) 3 ml IH [id number] PRN PRN Reason: Shortness of Breath Amlodipine Besylate (Norvasc) 10 mg PO DAILY [facility] PRN Reason: Protocol Last Admin: 03/08/18 10:47 Dose: 10 mg Benzocaine/Menthol (Cepacol Sore Throat) 1 jimenez MT Q2H PRN; Protocol PRN Reason: Sore Throat Enoxaparin Sodium (Lovenox) 30 mg SC 0600 [facility] PRN Reason: Protocol Last Admin: 03/08/18 05:29 Dose: 30 mg Famotidine (Pepcid) 20 mg PO DAILY [facility] Last Admin: 03/08/18 10:47 Dose: 20 mg Insulin Human Regular (Humulin R Low) 0 units SC ACHS [facility] PRN Reason: Protocol Last Admin: 03/08/18 06:49 Dose: Not Given Quetiapine Fumarate (Seroquel) 25 mg PO BID [facility] PRN Reason: Protocol Last Admin: 03/08/18 10:47 Dose: 25 mg Physical Exam - Constitutional Appears: Well, Non-toxic, No Acute Distress - Head Exam Head Exam: ATRAUMATIC, NORMOCEPHALIC - Extremities Exam Additional comments: LE focused exam: Vasc: DP/PT 2/4, Cap refill < 3 sec n all digits. Temp gradient warm to warm from proximal to distal. B/L perimalleolar mild non pitting edema. Neuro: Gross and protctive sensations are intact Derm: No open lesions, No clinical signs of infection, Mild erythema noted at the perimalleolar area b/l. MSK: Ankle ROM couldn't be assessed due to pain, Pain with ankle ROM in all directions. Pain on palpating the ankle joints in all directions. Muscle power couldn't be assessed due to pain and guarding. No gross deformity of the ankle b /l. - Neurological Exam Neurological exam: Alert, Oriented x3 - Psychiatric Exam Psychiatric exam: Normal Affect, Normal Mood Results - Vital Signs Recent Vital Signs: Last Vital Signs Temp 97.1 F L 03/07/18 16:37 Pulse 72 03/07/18 16:37 Resp 20 03/07/18 16:37 BP 138/70 03/08/18 10:47 Pulse Ox - Labs Labs: Laboratory Results - last 24 hr 03/07/18 03/08/18 20:59 10:09 POC Glucose (mg/dL) 184 H 153 H Assessment & Plan - Assessment and Plan (Free Text) Assessment: 78 y/o M opatient seen and evaluated at the bed side for b/l ankle pain Plan: Patient seen and evaluated at the bed side. Plan discussed in details with attending Dr. Giang. Labs, Vitals and chart reviewed; Afebrile B/l Spencer bandage applied to the patient ankle Ordered b/l 3 views x-ray ankle Patient advised to have bed rest for today Podiatry will follow up the patient while in house - Date & Time Date: 03/08/18 Time: 12:02 <Wilver Giang - Last Filed: 03/10/18 15:44> Meds - Medications Medications: Current Medications Acetaminophen (Tylenol 325mg Tab) 650 mg PO Q4H PRN; Protocol PRN Reason: Pain, Moderate (4-7), fever Last Admin: 03/10/18 05:34 Dose: 650 mg Albuterol/Ipratropium (Duoneb 3 Mg/0.5 Mg (3 Ml) Ud) 3 ml IH [id number] PRN PRN Reason: Shortness of Breath Amlodipine Besylate (Norvasc) 10 mg PO DAILY [facility] PRN Reason: Protocol Last Admin: 03/10/18 10:10 Dose: 10 mg Benzocaine/Menthol (Cepacol Sore Throat) 1 jimenez MT Q2H PRN; Protocol PRN Reason: Sore Throat Colchicine (Colocrys) 1.2 mg PO DAILY [facility] Last Admin: 03/10/18 14:11 Dose: 1.2 mg Enoxaparin Sodium (Lovenox) 30 mg SC 0600 [facility] PRN Reason: Protocol Last Admin: 03/10/18 05:34 Dose: 30 mg Famotidine (Pepcid) 20 mg PO DAILY [facility] Last Admin: 03/10/18 10:10 Dose: 20 mg Insulin Human Regular (Humulin R Low) 0 units SC ACHS [facility] PRN Reason: Protocol Last Admin: 03/10/18 11:23 Dose: Not Given Quetiapine Fumarate (Seroquel) 25 mg PO BID [facility] PRN Reason: Protocol Last Admin: 03/10/18 10:10 Dose: 25 mg Results - Vital Signs Recent Vital Signs: Last Vital Signs Temp 97.5 F L 03/10/18 10:00 Pulse 70 03/10/18 14:41 Resp 18 03/10/18 10:00 BP 140/65 03/10/18 10:10 Pulse Ox 96 03/10/18 14:41 - Labs Result Diagrams: 03/10/18 06:30 03/10/18 06:30 Labs: Laboratory Results - last 24 hr 03/09/18 03/09/18 03/10/18 16:29 21:05 04:49 WBC RBC Hgb Hct MCV MCH MCHC RDW Plt Count MPV Sodium Potassium Chloride Carbon Dioxide Anion Gap BUN Creatinine Est GFR ( Amer) Est GFR (Non-Af Amer) POC Glucose (mg/dL) 131 H 206 H 95 Random Glucose Uric Acid Calcium TSH 3rd Generation 03/10/18 03/10/18 03/10/18 06:30 06:30 06:30 WBC 8.4 D RBC 2.63 L Hgb 8.3 L Hct 25.3 L MCV 96.2 D MCH 31.6 MCHC 32.8 RDW 14.3 Plt Count 281 MPV 8.7 Sodium 136 Potassium 5.1 H Chloride 103 Carbon Dioxide 23 Anion Gap 15 BUN 30 H Creatinine 1.7 H Est GFR ( Amer) 48 Est GFR (Non-Af Amer) 39 POC Glucose (mg/dL) Random Glucose 103 Uric Acid Calcium 8.6 TSH 3rd Generation 4.89 H 03/10/18 03/10/18 06:30 10:45 WBC RBC Hgb Hct MCV MCH MCHC RDW Plt Count MPV Sodium Potassium Chloride Carbon Dioxide Anion Gap BUN Creatinine Est GFR ( Amer) Est GFR (Non-Af Amer) POC Glucose (mg/dL) 107 Random Glucose Uric Acid 5.7 Calcium TSH 3rd Generation Attending/Attestation - Attestation I have personally seen and examined this patient.: Yes I have fully participated in the care of the patient.: Yes I have reviewed all pertinent clinical information: Yes
--- NOTE | 2018-03-08 14:13 | RAD ---
Date of service: 03/08/2018 PROCEDURE: Left Ankle Radiographs. HISTORY: B/l ankle pain COMPARISON: None FINDINGS: BONES: There is diffuse bone demineralization. Bone alignment is normal. No acute fracture or bone destruction. There is a small plantar calcaneal spur. JOINTS: Normal. No osteoarthritis. Ankle mortise maintained. Talar dome intact SOFT TISSUES: Normal. OTHER FINDINGS: None. IMPRESSION: No acute fracture or dislocation.
--- NOTE | 2018-03-08 14:13 | RAD ---
Date of service: 03/08/2018 PROCEDURE: Right Ankle Radiographs. HISTORY: B/l Ankle pain COMPARISON: None FINDINGS: BONES: Bone alignment is normal. There is no acute displaced fracture or bone destruction.There is diffuse bone demineralization. JOINTS: Normal. No osteoarthritis. Ankle mortise maintained. Talar dome intact SOFT TISSUES: Normal. OTHER FINDINGS: None. IMPRESSION: No acute fracture or dislocation
--- NOTE | 2018-03-08 21:16 | PN ---
Copied To: Francesco Lyman MD Attending MD: Francesco Lyman MD DATE: 03/08/2018 PULMONARY PROGRESS NOTE REFERRING PHYSICIAN: Guillermina Garcia MD SUBJECTIVE: He is lying in the bed, head at 45 degrees. Night was unremarkable. No significant cough. Gets short of breath with exertion. No chest pain. No nausea, no vomiting, no diarrhea. No leg pain or leg swelling. OBJECTIVE: GENERAL: In no acute distress. VITAL SIGNS: Temperature is 98, heart rate is 72, respiratory rate is 20, blood pressure 130/64. HEENT: Moist mucous membranes. Small oral cavity. Crowded airway. NECK: Supple. No JVD. LUNGS: Have a fair airflow with rhonchi. HEART: S1 and S2. ABDOMEN: Soft, nontender, no organomegaly. EXTREMITIES: No edema. NEUROLOGIC: Sleepy, arousable. Follows simple command. MEDICATIONS: He is on Cepacol lozenges every 2 hours p.r.n., albuterol and Atrovent nebulizer every 6 hours p.r.n., insulin coverage, Lovenox 30 mg subcu daily, Norvasc 10 mg daily, Pepcid 20 mg daily, Seroquel 25 mg twice a day, and Tylenol p.r.n. basis. LABORATORY DATA: Shows glucose 153. Had x-ray of his ankles done today which shows no acute fracture or dislocation of the right ankle. There is also x-ray of the left ankle, similarly there is no fracture or dislocation. IMPRESSION AND PLAN: Status post severe hyponatremia, which is corrected; unresectable lung cancer, has been on chemotherapy; history of nephrectomy in the remote past; may have sleep apnea syndrome. Pulmonary point of view, doing okay. Continue to encourage CPAP use. Keep head at 45 degrees. Sleep apnea precaution, avoid sedation. Gastric prophylaxis. Sequential compression devices to lower extremity. Follow up electrolytes. Thank you and we will follow up with you. Francesco Lyman MD
[2018-03-09] MEDS: Enoxaparin 30 mg Syringe SC SCH (05:20)
[2018-03-09] MEDS: Insulin Reg-LOW-Coverage SC SCH ×4 (06:39→21:34)
[2018-03-09 07:03] LABS: ALBUMIN 3.3 g/dL (3.0-4.8); CALCIUM 8.9 mg/dL (8.4-10.5); IRON 24 ug/dL (45-180)
[2018-03-09 07:13] LABS: % IRON SATURATION 10 % (20-55); TOTAL IRON BINDING CAPACITY 248 ug/dL (261-462)
--- NOTE | 2018-03-09 10:21 | HP ---
date 03/08/18 Copied To: Guillermina Gracia MD Attending MD: Guillermina Garcia MD CHIEF COMPLAINT: Low sodium. HISTORY OF PRESENT ILLNESS: The patient is a 78-year-old male. Mr. Gilberto Robert is a 78-year-old male who came in [facility] Emergency Room with fatigue, tired, low sodium, was admitted in the unit due to the hyponatremia, now patient improved, transferred to TCU. Patient has history of lung cancer, chronic lung disease, sleep apnea syndrome, status post nephrectomy in the remote past, lung cancer unresectable and status post chemoradiation therapy. According to patient, he admits he had loud snoring and he is sleepy daytime. No fever. No chills. No nausea, vomiting or diarrhea. No hematuria or hematochezia. PAST MEDICAL HISTORY: As above. Lung cancer unresectable, chronic lung disease, sleep apnea syndrome, kidney CA with nephrectomy. ALLERGIES: PATIENT IS NOT ALLERGIC WITH ANY MEDICATIONS. SOCIAL HISTORY: History of smoking, quit many years ago. Alcohol, denies. Substance abuse, denies. FAMILY HISTORY: Father and mother, noncontributory. REVIEW OF SYSTEMS: Patient was seen and examined on the bedside. Looking comfortable. No nausea, vomiting or diarrhea. No hematuria or hematochezia. No headache or dizziness. Nurse told me about swelling of the legs and feet pain, but x-ray was done, seen by operations research director. PHYSICAL EXAMINATION: VITAL SIGNS: Temperature 97.1, pulse 72, blood pressure 138/70, respiratory rate 20. HEENT: Head: Normocephalic, atraumatic. Eyes: PERRLA. Extraocular muscles intact. Conjunctivae clear. Nose patent. NECK: Supple. No carotid bruit. No JVD or thyromegaly. CHEST: Bilaterally symmetrical. HEART: S1, S2 positive. LUNGS: Clear to auscultation. ABDOMEN: Soft. Bowel sounds present. No organomegaly. EXTREMITIES: Have trace edema. NEUROLOGICAL: Patient is awake and alert. Follow simple commands. LABORATORY DATA: Glucose is 184, 153, 119, 213. We do not have other labs. I reviewed old labs. ASSESSMENT AND PLAN: Mr. Gilberto Robert is a 78-year-old male, status post hyponatremia, which is corrected slowly by web analytics developer; unresectable lung cancer; chemotherapy; history of nephrectomy in the remote past; sleep apnea syndrome; swelling of the legs; ankle pain. Continue current CPAP use. Keep head at 45 degrees. Sleep apnea precautions, avoid sedation. Gastric prophylaxis. Sequential compression devices to lower extremity. Follow up electrolytes. Now, he is getting physical therapy. X-ray of the ankle was done, reviewed by me. Gastrointestinal and deep venous thrombosis prophylaxes. Repeat labs. We will follow up. Guillermina Garcia MD MTDEveline
--- NOTE | 2018-03-09 10:33 | PN ---
Copied To: Christine Corona MD Attending MD: Christine Corona MD DATE: 03/08/2018 NEPHROLOGY FOLLOWUP SUBJECTIVE: This 78-year-old male was seen today. I am covering for Dr. Ajay Muniz, home fire alarm installer. The patient was seen in the Transitional Care Physical Therapy Exercise Room where he was cooperating with physical therapy with Walt Martin, physical therapist. The patient was admitted with severe hyponatremia secondary to nausea, vomiting and diarrhea as well as hypokalemia, now corrected. The patient is currently in TCU for reconditioning and gait training and Nephrology is following this patient to ensure electrolyte stability. PHYSICAL EXAMINATION Today; VITAL SIGNS: Temperature was 97.1, respirations 20, pulse 72 and blood pressure 130/64. HEENT: Head: Normocephalic, atraumatic. Eyes: No icterus. Ears: Clear. Throat: Noninjected. NECK: Supple. HEART: Regular S1, S2. LUNGS: Clear. ABDOMEN: Soft. EXTREMITIES: No edema. SKIN: No rash. VASCULAR: Legs warm to touch. PSYCHOLOGICAL: Alert and oriented x3. NEUROLOGIC: Deconditioned. LABORATORY DATA: Blood sugars in TCU have run from 153 to 184. Current electrolytes are pending, but previous labs on Medical-Surgical Unit showed white count 5800, hemoglobin 9.2, hematocrit 27.3, platelets 282,000 with sodium 134, K 4.7, chloride 102, bicarb 22, BUN 26, creatinine 1.6 and estimated GFR 42 mL per minute. IMPRESSION AND PLAN: A 78-year-old male with multiple medical problems including chronic renal failure stage III-IV, anemia of chronic disease, chronic hypertension, hypertensive nephrosclerosis, type 2 diabetes mellitus, history of left nephrectomy and metastatic renal cell carcinoma with chronic obstructive pulmonary disease symptomatology as well as peptic ulcer disease with gastroesophageal reflux disease. The patient will continue on Cepacol, Duo nebulizers, Humulin R insulin coverage, Lovenox, Norvasc, Pepcid, Seroquel and Tylenol. BRIAN inhibitors had been withheld given worsening renal insufficiency and at present, the patient will continue aggressive physical therapy for reconditioning and gait training. He will have a comprehensive metabolic panel, lipid and hemoglobin A1c levels, TSH levels, CPAP as outlined, heart healthy diet will continue with a 60 g protein restriction added. The patient will continue to be followed by Dr. Muniz tomorrow morning regarding his ongoing nephrological issues as well as Dr. Lyman from Pulmonary and Dr. Vazquez from Neurology. All of the above was reviewed with the patient and [facility] nursing. All questions were answered. Christine Corona MD MTDEveline
[2018-03-09 15:01] LABS: FOLATE 10.1 ng/mL
--- NOTE | 2018-03-09 18:50 | CP.PCM.PN ---
<Jonathan Odom - Last Filed: 03/09/18 18:46> Subjective - Date & Time of Evaluation Date of Evaluation: 03/09/18 Time of Evaluation: 17:00 - Subjective Subjective: Podiatry Progress Note - Drs. Chavis/Padmaja 78M seen and examined in TCU for diffuse lower extremity pain b/l. Patient resting in bed comfortably, hemodynamically stable and NAD. No acute events overnight. States pain in lower extremities is slowly improving, alleviated by tylenol. Patient states he experiences the most pain in his ankles and in his midfoot, and is unable to move his feet without pain. Denies N/V/F/D/C/SOB. Offers no other complaints at this time. Objective - Vital Signs/Intake and Output Vital Signs (last 24 hours): Temp Pulse Resp BP Pulse Ox 97.1 F L 72 20 147/79 03/07/18 16:37 03/07/18 16:37 03/07/18 16:37 03/09/18 10:08 Intake and Output: 03/09/18 03/09/18 06:59 18:59 Intake Total 420 Balance 420 - Medications Medications: Current Medications Acetaminophen (Tylenol 325mg Tab) 650 mg PO Q4H PRN; Protocol PRN Reason: Pain, Moderate (4-7), fever Last Admin: 03/09/18 12:19 Dose: 650 mg Albuterol/Ipratropium (Duoneb 3 Mg/0.5 Mg (3 Ml) Ud) 3 ml IH [id number] PRN PRN Reason: Shortness of Breath Amlodipine Besylate (Norvasc) 10 mg PO DAILY [facility] PRN Reason: Protocol Last Admin: 03/09/18 10:08 Dose: 10 mg Benzocaine/Menthol (Cepacol Sore Throat) 1 jimenez MT Q2H PRN; Protocol PRN Reason: Sore Throat Enoxaparin Sodium (Lovenox) 30 mg SC 0600 [facility] PRN Reason: Protocol Last Admin: 03/09/18 05:20 Dose: 30 mg Famotidine (Pepcid) 20 mg PO DAILY [facility] Last Admin: 03/09/18 10:08 Dose: 20 mg Insulin Human Regular (Humulin R Low) 0 units SC ACHS [facility] PRN Reason: Protocol Last Admin: 03/09/18 17:49 Dose: Not Given Quetiapine Fumarate (Seroquel) 25 mg PO BID [facility] PRN Reason: Protocol Last Admin: 03/09/18 17:50 Dose: 25 mg - Labs Labs: 03/09/18 06:40 - Constitutional Appears: Well, Non-toxic, No Acute Distress - Extremities Exam Additional comments: LE focused exam: Vasc: DP/PT 2/4, Cap refill < 3 sec n all digits. Temp gradient warm to warm from proximal to distal, slight increase in warmth noted to medial ankle and dorsum of midfoot b/l. B/L perimalleolar mild non pitting edema. Neuro: Gross and protctive sensations are intact Derm: No open lesions noted. Mild erythema noted to medial ankle b/l. MSK: Ankle joint ROM limited secondary to pain b/l. Pain on palpation noted to medial ankle and dorsum of midfoot b/l. MMT deferred secondary to guarding. - Neurological Exam Neurological Exam: Alert, Awake, Oriented x3 - Psychiatric Exam Psychiatric exam: Normal Affect, Normal Mood Assessment and Plan - Assessment and Plan (Free Text) Assessment: 78M with bilateral foot and ankle pain ?etiology Plan: Patient seen and evaluated alongside attending, Dr. Chavis VSChaparro Bilateral ankle XR reviewed: Unremarkable Pain control: Tylenol WBAT bilateral LE Continue PT/OT Podiatry will continue to follow <Dora Chavis - Last Filed: 03/15/18 18:39> Objective - Vital Signs/Intake and Output Vital Signs (last 24 hours): Temp Pulse Resp BP Pulse Ox 98.2 F 58 L 20 115/58 L 97 03/13/18 16:00 03/13/18 16:00 03/13/18 16:00 03/14/18 10:40 03/13/18 16:00 - Medications Medications: Current Medications Acetaminophen (Tylenol 325mg Tab) 650 mg PO Q4H PRN; Protocol PRN Reason: Pain, Moderate (4-7), fever Last Admin: 03/11/18 09:36 Dose: 650 mg Albuterol/Ipratropium (Duoneb 3 Mg/0.5 Mg (3 Ml) Ud) 3 ml IH [id number] PRN PRN Reason: Shortness of Breath Amlodipine Besylate (Norvasc) 5 mg PO DAILY [facility] PRN Reason: Protocol Last Admin: 03/14/18 10:40 Dose: Not Given Benzocaine/Menthol (Cepacol Sore Throat) 1 jimenez MT Q2H PRN; Protocol PRN Reason: Sore Throat Enoxaparin Sodium (Lovenox) 30 mg SC 0600 [facility] PRN Reason: Protocol Last Admin: 03/15/18 06:11 Dose: 30 mg Famotidine (Pepcid) 20 mg PO DAILY [facility] Last Admin: 03/15/18 09:22 Dose: 20 mg Insulin Human Regular (Humulin R Low) 0 units SC ACHS [facility] PRN Reason: Protocol Last Admin: 03/15/18 12:26 Dose: Not Given Quetiapine Fumarate (Seroquel) 25 mg PO BID [facility] PRN Reason: Protocol Last Admin: 03/15/18 17:02 Dose: 25 mg - Labs Labs: 03/14/18 06:30 03/14/18 06:30 Attending/Attestation - Attestation I have personally seen and examined this patient.: Yes I have fully participated in the care of the patient.: Yes I have reviewed all pertinent clinical information, including history, physical exam and plan: Yes
--- NOTE | 2018-03-10 01:31 | PN ---
Copied To: Francesco Lyman MD Attending MD: Francesco Lyman MD DATE: 03/09/2018 PULMONARY PROGRESS NOTE REFERRING PHYSICIAN: Guillermina Garcia MD SUBJECTIVE: He is lying in the bed, head at 45 degrees. Could not use CPAP last night. No headache. No rhinitis . No nausea, no vomiting, no diarrhea. No leg swelling. Does have a left knee and ankle discomfort. OBJECTIVE: GENERAL: In no acute distress. VITAL SIGNS: Temp is 98, heart rate is 72, respiratory rate is 20, blood pressure 147/79. HEENT: Moist mucous membranes. Small oral cavity. Crowded airway. NECK: Supple. No JVD. LUNGS: Have a fair airflow with a few rhonchi. HEART: S1 and S2. ABDOMEN: Soft, nontender. No organomegaly. EXTREMITIES: No edema. NEUROLOGICAL: Awake and alert. Follows simple command. MEDICATIONS: He is on Cepacol lozenges every 2 hours p.r.n., DuoNeb every 6 hours p.r.n., Lovenox 30 mg daily, Norvasc 10 mg daily, Pepcid 20 mg daily, Seroquel 25 mg twice a day, Tylenol p.r.n. basis. LABORATORY DATA: Shows sodium 137, potassium 5.1, chloride 104, bicarbonate 24, BUN 27, creatinine 1.9, glucose 97, calcium is 8.9. Iron is 24, AST 24, ALT 24, alk phos is 81. Albumin is 3.3. Cholesterol is 120. B12 282. Folate is 10. IMPRESSION AND PLAN: Status post severe hyponatremia, which is corrected; unresectable lung cancer, has been on chemotherapy; history of nephrectomy in the remote past; may have sleep apnea syndrome; renal insufficiency. Case discussed with family at bedside. Spoke to nursing staff. Encourage CPAP use. Keep head at 45 degrees. We will get Podiatry to see the patient for left ankle and foot discomfort. Thank you and we will follow with you. Francesco Lyman MD
[2018-03-10] MEDS: Enoxaparin 30 mg Syringe SC SCH (05:34)
[2018-03-10] MEDS: Insulin Reg-LOW-Coverage SC SCH ×3 (06:37→17:18)
[2018-03-10 07:11] LABS: HEMOGLOBIN 8.3 g/dL (14.0-18.0); MEAN CELL VOLUME 96.2 fl (80.0-105.0); MEAN CORPUSCULAR HEMOGLOBIN 31.6 pg (25.0-35.0); MEAN CORPUSCULAR HGB CONC 32.8 g/dl (31.0-37.0); MEAN PLATELET VOLUME 8.7 fl (7.0-11.0); RBC 2.63 10^6/uL (3.5-6.1); RED CELL DISTRIBUTION WIDTH 14.3 % (11.5-14.5); WHITE BLOOD COUNT 8.4 10^3/ul (4.5-11.0)
[2018-03-10 07:24] LABS: CALCIUM 8.6 mg/dL (8.4-10.5)
--- NOTE | 2018-03-10 08:37 | PN ---
Copied To: Guillermina Garcia MD Attending MD: Guillermina Garcia MD DATE: 03/09/2018 SUBJECTIVE: The patient is a 78-year-old male. Patient was seen and examined at the bedside. Complaining about pain in the legs, sometimes ankles, sometimes knees. No fever. No chills. No hematuria. No hematochezia. No bowel movement. PHYSICAL EXAMINATION: VITAL SIGNS: Temperature 97.1, pulse 72, respiratory rate 18, blood pressure 130/64. HEENT: Head normocephalic, atraumatic. Eyes PERRLA. Extraocular muscles intact. Conjunctivae clear. Nose patent. Mucous membrane moist. NECK: Supple. No carotid bruit. No JVD or thyromegaly. CHEST: Bilaterally symmetrical. HEART: S1 and S2 positive. LUNGS: Clear to auscultation. ABDOMEN: Soft. Bowel sounds positive. No organomegaly. EXTREMITIES: No edema. No cyanosis. NEUROLOGICAL: Patient is awake and alert. Moving all 4 extremities. No focal deficits. labs , no new lab , i noted old lab MEDS , i noted meds , ASSESSMENT AND PLAN: Mr. Gilberto Robert is a 78-year- old male with multiple medical problems including chronic renal failure stage IV, anemia of chronic disease, chronic hypertension, hypertensive nephrosclerosis, type 2 diabetes mellitus, history of nephrectomy and metastatic renal cell carcinoma. Gastrointestinal and deep venous thrombosis prophylaxes. Repeat labs. We will follow up. Guillermina Garcia MD MTDEveline
--- NOTE | 2018-03-10 09:38 | CP.PCM.PN ---
<Klaus Do - Last Filed: 03/10/18 21:54> Subjective - Date & Time of Evaluation Date of Evaluation: 03/10/18 Time of Evaluation: 09:35 - Subjective Subjective: Xavier Do PGY2 IM - Progress Note for Case Preparer And Liner Dr. Muniz Patient seen and evaluated this AM at bedside. Patient resting comfortably in bed. Reports no events overnight. Does complain of lower leg discomfort. Patient indicates pain is not new. He denies chest pain, shortness of breath, abdominal pain, dysuria, difficulty urinating, hematuria, fever, chills, nausea , vomiting, auditory or visual hallucinations. Objective - Vital Signs/Intake and Output Vital Signs (last 24 hours): Temp Pulse Resp BP Pulse Ox 97.1 F L 72 20 147/79 03/07/18 16:37 03/07/18 16:37 03/07/18 16:37 03/09/18 10:08 - Medications Medications: Current Medications Acetaminophen (Tylenol 325mg Tab) 650 mg PO Q4H PRN; Protocol PRN Reason: Pain, Moderate (4-7), fever Last Admin: 03/10/18 05:34 Dose: 650 mg Albuterol/Ipratropium (Duoneb 3 Mg/0.5 Mg (3 Ml) Ud) 3 ml IH [id number] PRN PRN Reason: Shortness of Breath Amlodipine Besylate (Norvasc) 10 mg PO DAILY [facility] PRN Reason: Protocol Last Admin: 03/09/18 10:08 Dose: 10 mg Benzocaine/Menthol (Cepacol Sore Throat) 1 jimenez MT Q2H PRN; Protocol PRN Reason: Sore Throat Enoxaparin Sodium (Lovenox) 30 mg SC 0600 [facility] PRN Reason: Protocol Last Admin: 03/10/18 05:34 Dose: 30 mg Famotidine (Pepcid) 20 mg PO DAILY [facility] Last Admin: 03/09/18 10:08 Dose: 20 mg Insulin Human Regular (Humulin R Low) 0 units SC ACHS [facility] PRN Reason: Protocol Last Admin: 03/10/18 06:37 Dose: Not Given Quetiapine Fumarate (Seroquel) 25 mg PO BID [facility] PRN Reason: Protocol Last Admin: 03/09/18 17:50 Dose: 25 mg - Labs Labs: 03/10/18 06:30 03/10/18 06:30 - Constitutional Appears: Non-toxic, No Acute Distress - Head Exam Head Exam: ATRAUMATIC, NORMAL INSPECTION, NORMOCEPHALIC - Eye Exam Eye Exam: EOMI, PERRL - ENT Exam ENT Exam: Mucous Membranes Moist - Respiratory Exam Respiratory Exam: Clear to Ausculation Bilateral, NORMAL BREATHING PATTERN - Cardiovascular Exam Cardiovascular Exam: REGULAR RHYTHM, +S1, +S2 - GI/Abdominal Exam GI & Abdominal Exam: Soft, Normal Bowel Sounds. absent: Rigid, Tenderness - Extremities Exam Extremities Exam: Normal Capillary Refill. absent: Pedal Edema Additional comments: bilateral ankle pain with movement - Neurological Exam Neurological Exam: Alert, Awake, CN II-XII Intact, Oriented x3 Additional comments: AAOx3 Patient able to move all four extremities past midline Motor and sensory grossly intact - Psychiatric Exam Psychiatric exam: Normal Affect, Normal Mood - Skin Skin Exam: Dry, Intact Assessment and Plan - Assessment and Plan (Free Text) Assessment: 78 year old male with PMH of RCC s/p Left nephrectomy with lung mets, DM2, HTN admitted for dizziness, nausea, diarrhea. Patient evaluated and found to be hyponatremic secondary to volume loss and poor oral intake. Patient currently in TCU with stable sodium. Plan: Hyponatremia - Originally presented with severe hyponatremia of 105 on admission - Etiology likely secondary to volume loss and poor oral intake vs. malignancy - Patient Sodium levels increased at appropriate rate, Na now 136 - Correction goal of 6-8meq in 24 hour period - Follow serial BMPs for renal function and electrolyte status ZEINA on CKD stage 3b - Bun/Cr today 301.7 - Patient likely at baseline for CKD - Avoiding nephrotoxic agents including HCTZ and BRIAN-inh Acute on Chronic Gout - Patient complaining of swollen warm tender joints in feet - Proposed etiology secondary to gout - Colchicine 1.6mg today, 0.6mg following day - Monitor clinical symptoms - Avoid high protein, high uric acid containing foods Hx of Hypertension - BP is well controlled during TCU admission - MAP goal >65mmHg - Continue with amlodipine Further recommendations as per Dr. Muniz Patient seen, case discussed and plan approved by attending, Dr. Cristy Do PGY2 <Ajay Muniz - Last Filed: 03/11/18 07:06> Objective - Vital Signs/Intake and Output Vital Signs (last 24 hours): Temp Pulse Resp BP Pulse Ox 98.2 F 95 H 18 133/69 98 03/10/18 16:00 03/10/18 23:06 03/10/18 16:00 03/10/18 16:00 03/10/18 16:00 - Medications Medications: Current Medications Acetaminophen (Tylenol 325mg Tab) 650 mg PO Q4H PRN; Protocol PRN Reason: Pain, Moderate (4-7), fever Last Admin: 03/10/18 05:34 Dose: 650 mg Albuterol/Ipratropium (Duoneb 3 Mg/0.5 Mg (3 Ml) Ud) 3 ml IH [id number] PRN PRN Reason: Shortness of Breath Amlodipine Besylate (Norvasc) 10 mg PO DAILY [facility] PRN Reason: Protocol Last Admin: 03/10/18 10:10 Dose: 10 mg Benzocaine/Menthol (Cepacol Sore Throat) 1 jimenez MT Q2H PRN; Protocol PRN Reason: Sore Throat Colchicine (Colocrys) 1.2 mg PO DAILY [facility] Last Admin: 03/10/18 14:11 Dose: 1.2 mg Enoxaparin Sodium (Lovenox) 30 mg SC 0600 [facility] PRN Reason: Protocol Last Admin: 03/11/18 06:12 Dose: 30 mg Famotidine (Pepcid) 20 mg PO DAILY [facility] Last Admin: 03/10/18 10:10 Dose: 20 mg Insulin Human Regular (Humulin R Low) 0 units SC ACHS [facility] PRN Reason: Protocol Last Admin: 03/11/18 06:43 Dose: Not Given Quetiapine Fumarate (Seroquel) 25 mg PO BID [facility] PRN Reason: Protocol Last Admin: 03/10/18 17:21 Dose: 25 mg - Labs Labs: 03/10/18 06:30 03/10/18 06:30 Attending/Attestation - Attestation I have personally seen and examined this patient.: Yes I have fully participated in the care of the patient.: Yes I have reviewed all pertinent clinical information, including history, physical exam and plan: Yes Notes (Text): Patient seen and examined; I agree with the resident's note as above with the following edits/additions: 78 yo M w/ htn, dm, metastatic RCC s/p L nephrectomy, initially admitted to [facility] with severe hyponatremia, now in TCU; Hyponatremia corrected; secondary to volume depletion in the setting of decreased PO intake, vomiting and being on thiazide diuretic; recommend to avoid thiazide diuretics for this elderly patient who is prone to having decreased PO intake; CKD IIIB; proteinuric kidney disease in the setting of DM, chemo may be contributory as well; serologic workup mostly negative for other causes, still awaiting serum free light chains; otherwise, currently with mild ZEINA with serum creatinine above baseline (1.3 on admission); has had hemodynamic fluctuations in serum creatinine though BP currently stable; will monitor periodically; Serum potassium level at higher end of normal despite not being on home dose of ARB; will keep him on low K diet and monitor; alf will benefit from going back on ARB for anti-proteinuric effect (holding for now); Bilateral foot pain possibly due to gout though uric acid level not elevated; will give trial of colchicine; should avoid NSAIDS; Significant anemia; will defer giving EPO to hematology (especially with metastatic RCC history);
--- NOTE | 2018-03-10 15:13 | CON ---
Copied To: Markie Vazquez MD Attending MD: Markie Vazquez MD DATE: 03/10/2018 NEUROLOGY CONSULT CHIEF COMPLAINT: Followup of altered mental status. HISTORY OF PRESENT ILLNESS: This is a 78-year-old man with history of multiple medical problems including chronic renal failure stage IV, anemia of chronic disease, chronic hypertension, hypertensive nephrosclerosis, type 2 diabetes mellitus, history of metastatic renal cell carcinoma to the lungs, status post nephrectomy, who is found in altered mental status on the medical site, found to be hyponatremic with sodium initially of 105, now is within normal limits. Had delirium and was on Seroquel and had underlying metabolic encephalopathy, which has cleared up. He is on TCU for rehabilitation. PAST MEDICAL HISTORY: As above. SOCIAL HISTORY: No illicit drug use, smoking or EtOH abuse. REVIEW OF SYSTEMS: Fourteen-point review of systems is negative except as per the HPI. ALLERGIES: NO KNOWN DRUG ALLERGIES. MEDICATIONS: Reviewed by nurses' reconciliation sheet. LABORATORY DATA: Sodium is 136, potassium 5.1, chloride 103, carbon dioxide 23, BUN of 30, creatinine of 1.7, random glucose of 103. PHYSICAL EXAMINATION: VITAL SIGNS: Temperature of 97.5, pulse rate of 72, blood pressure 140/65, respiratory rate of 18, oxygen saturation 97% by room air. GENERAL: The patient is sitting up in bed, in no acute distress. HEENT: Atraumatic, normocephalic. PERRLA. Extraocular muscles intact. NECK: Supple. No JVD, no adenopathy noted. LUNGS: Clear to auscultation. No adventitious sounds. HEART: S1, S2. Normal rate and rhythm. No murmurs, rubs or gallops. ABDOMEN: Soft, nontender and nondistended. Bowel sounds are present. EXTREMITIES: No clubbing. No cyanosis. Peripheral pulses 2+ felt bilaterally. NEUROLOGIC: The patient is alert and oriented to person, place, month and year. Speech is fluent without any errors. Recall after 5 minutes is 1/3. Poor attention span, slow thought process. Cranial nerves II through XII are intact. Motor exam: Slight increased tone throughout. Moves all extremities equally. No pronator drift seen. Toes are downgoing bilaterally. Sensory exam: Decreased light touch and pinprick up to the calves bilaterally. Decreased vibration of the toes. DTRs are 2+ throughout and 1 at both knees and ankles. Coordination: [id number]-[id number] intact. No dysmetria noted. Gait is deferred for now. IMPRESSION: Altered mental status was secondary to initially Intensive Care Unit delirium and metabolic encephalopathy from severe hyponatremia, which is corrected and is on the medical site for underlying deconditioned state and rehabilitation. At this time, I will recommend, 1. Monitor electrolytes and correct accordingly. 2. Continue with Seroquel for any agitation and delirium. 3. Thiamine 100 mg p.o. daily. 4. Continue with physical therapy, occupational therapy and continue current present medical management in regards to his chronic medical conditions by other physicians. Thank you for this consult. Markie Vazquez MD
--- NOTE | 2018-03-10 15:40 | PN ---
Copied To: Aniceto Russo MD Attending MD: Aniceto Russo MD DATE: 03/10/2018 ONCOLOGY EVALUATION This is a 78-year-old man with known renal cell carcinoma widely metastatic to his lungs. He is being followed by Dr. Garcia and I discussed with her the condition. He is on Votrient medication for the renal cell carcinoma metastatic to his lungs and he has been relatively stable on this. He has been on it for at least a year to year and a half, and will continue to do so . We held off the Votrient while he was in the hospital, but since he is out, we will restart it again. At this point, laboratory findings show that the hyponatremia that he came in with is normal, kidney functions are starting to return to normal and better in terms of his breathing and overall appetite. So at this point, we held Votrient and when he gets out of the hospital, we will restart it. He is stable in terms of the renal cell carcinoma. Aniceto Russo MD
--- NOTE | 2018-03-11 04:23 | PN ---
Copied To: Francesco Lyman MD Attending MD: Francesco Lyman MD DATE: 03/10/2018 REFERRING PHYSICIAN: Dr. Garcia. SUBJECTIVE: He is lying in the bed, head at 45 degrees. Diet was unremarkable. Refuse to use CPAP. No nausea. No vomiting. No diarrhea. No leg pain or leg swelling. He does have some ankle discomfort on walking. PHYSICAL EXAMINATION: GENERAL: In no acute distress. VITAL SIGNS: Temperature is 98, heart rate 65, respiratory rate is 18, blood pressure 133/69, pulse ox 98% on room air. HEENT: Moist mucous membrane. Small oral cavity. Crowded airway. NECK: Supple. No JVD. LUNGS: Have a few scattered rhonchi. HEART: S1 and S2. ABDOMEN: Soft, nontender. No organomegaly. EXTREMITIES: There is no edema. Does have a tenderness on the ankle and foot. NEUROLOGICAL: Awake and alert. Follows simple command. MEDICATIONS: He is on Cepacol lozenges every 2 hours p.r.n., colchicine 1.2 mg daily, DuoNeb every 6 hours p.r.n., Lovenox 30 mg subcu daily, Norvasc 10 mg daily, Pepcid 20 mg daily, Seroquel 25 mg twice a day, Tylenol p.r.n. basis. LABORATORY DATA: Shows hemoglobin 8.3, hematocrit 25.3, WBC 8.4, platelet is 281. Sodium 136, potassium 5.1, chloride 103, bicarbonate 23, BUN 13, creatinine 1.7, glucose is 120. Uric acid 5.7, calcium 8.6, TSH is 4.89. IMPRESSION AND PLAN: Status post severe hyponatremia which is resolved and corrected, lung cancer, has been on chemotherapy; history of nephrectomy in the remote past for renal cell carcinoma, sleep apnea syndrome, renal failure, which is improved. Spoke to the patient and the family at bedside. All the questions answered. Advised him to use CPAP use. Keep head at 45 degrees. Bronchodilator. Out of bed to chair. Suspected gout in the ankle and foot, seen by Podiatry. Thank you and we will follow with you. Francesco Lyman MD
[2018-03-11] MEDS: Insulin Reg-LOW-Coverage SC SCH ×5 (04:52→21:05)
--- NOTE | 2018-03-11 04:57 | PN ---
Copied To: Guillermina Garcia MD Attending MD: Guillermina Garcia MD DATE: 03/10/2018 The patient is a 78-year-old male. SUBJECTIVE: The patient was seen and examined at the bedside, looking comfortable. No fever. No chills. No nausea, vomiting, or diarrhea. No hematuria or hematochezia. No headache. No dizziness. PHYSICAL EXAMINATION: VITAL SIGNS: Temperature 97.5, pulse 72, blood pressure 140/65, respiratory rate 18. HEENT: Head is normocephalic and atraumatic. Eyes; PERRLA. Extraocular muscles are intact. Conjunctivae are clear. Nose is patent. Mucous membranes are moist. NECK: Supple. No carotid bruit. No JVD or thyromegaly. CHEST: Bilaterally symmetrical. HEART: S1 and S2 positive. LUNGS: Clear to auscultation. ABDOMEN: Soft. Bowel sounds are positive. No organomegaly. EXTREMITIES: No edema. No cyanosis. NEUROLOGICAL: The patient is awake and alert. Moving all four extremities. No focal deficit. MEDICATIONS: Cepacol lozenges, colchicine, DuoNeb, insulin, Lovenox, Norvasc, Pepcid, Seroquel, and Tylenol. LABORATORY DATA: White blood cell 8.4, hemoglobin 8.3, hematocrit 25.3, and platelets 281. Sodium 136, potassium 5.1, BUN 30, creatinine 1.7, and glucose 120. TSH 4.89. ASSESSMENT AND PLAN: Mr. Gilberto Robert is a 78-year-old male with anemia, hyperkalemia, renal insufficiency, hyperglycemia, hypothyroidism, had history of multiple medical problems, chronic renal failure stage IV, chronic hypertension, hypertensive nephrosclerosis, type 2 diabetes mellitus, history of metastatic renal carcinoma to the lungs, status post nephrectomy, came with mild altered mental status, found to have hyponatremia with sodium initially 105, now it is within normal limits, has history of delirium and while on Seroquel and underlying metabolic encephalopathy, which is cleared. Now, getting physical therapy in TCU. Altered mental status is better. Still we are making electrolytes. Repeat potassium level. Getting thiamine. Pending on physical therapy, occupational therapy. Appreciated neurologist input. Gastrointestinal and deep vein thrombosis prophylaxis. Repeat labs. We will follow up. Guillermina Garcia MD
[2018-03-11] MEDS: Enoxaparin 30 mg Syringe SC SCH (06:12)
--- NOTE | 2018-03-11 10:12 | CP.PCM.PN ---
<Klaus Do - Last Filed: 03/11/18 12:15> Subjective - Date & Time of Evaluation Date of Evaluation: 03/11/18 Time of Evaluation: 08:00 - Subjective Subjective: Xavier Do PGY2 - Nephrology Progress Note for Dr. Muniz Patient seen and evaluated this AM. Patient indicates he slept well last evening and that his symptoms of lower extremity discomfort are much improved. He denies chest pain, palpitations, shortness of breath, dysuria, fever, chills , nausea, vomiting. Objective - Vital Signs/Intake and Output Vital Signs (last 24 hours): Temp Pulse Resp BP Pulse Ox 97.9 F 72 18 125/70 977 H 03/11/18 06:00 03/11/18 06:00 03/11/18 06:00 03/11/18 09:37 03/11/18 06:00 - Medications Medications: Current Medications Acetaminophen (Tylenol 325mg Tab) 650 mg PO Q4H PRN; Protocol PRN Reason: Pain, Moderate (4-7), fever Last Admin: 03/11/18 09:36 Dose: 650 mg Albuterol/Ipratropium (Duoneb 3 Mg/0.5 Mg (3 Ml) Ud) 3 ml IH [id number] PRN PRN Reason: Shortness of Breath Amlodipine Besylate (Norvasc) 10 mg PO DAILY [facility] PRN Reason: Protocol Last Admin: 03/11/18 09:37 Dose: 10 mg Benzocaine/Menthol (Cepacol Sore Throat) 1 jimenez MT Q2H PRN; Protocol PRN Reason: Sore Throat Colchicine (Colocrys) 0.6 mg PO DAILY [facility] Last Admin: 03/11/18 09:37 Dose: 0.6 mg Enoxaparin Sodium (Lovenox) 30 mg SC 0600 [facility] PRN Reason: Protocol Last Admin: 03/11/18 06:12 Dose: 30 mg Famotidine (Pepcid) 20 mg PO DAILY [facility] Last Admin: 03/11/18 09:37 Dose: 20 mg Insulin Human Regular (Humulin R Low) 0 units SC ACHS [facility] PRN Reason: Protocol Last Admin: 03/11/18 06:43 Dose: Not Given Quetiapine Fumarate (Seroquel) 25 mg PO BID [facility] PRN Reason: Protocol Last Admin: 03/11/18 09:37 Dose: 25 mg - Labs Labs: 03/10/18 06:30 03/10/18 06:30 - Constitutional Appears: No Acute Distress - Head Exam Head Exam: ATRAUMATIC, NORMAL INSPECTION, NORMOCEPHALIC - Eye Exam Eye Exam: EOMI, PERRL - ENT Exam ENT Exam: Mucous Membranes Moist - Neck Exam Neck Exam: Full ROM - Respiratory Exam Respiratory Exam: Clear to Ausculation Bilateral, NORMAL BREATHING PATTERN - Cardiovascular Exam Cardiovascular Exam: REGULAR RHYTHM, +S1, +S2 - GI/Abdominal Exam GI & Abdominal Exam: Soft, Normal Bowel Sounds. absent: Firm, Rigid, Tenderness - Extremities Exam Extremities Exam: Normal Capillary Refill Additional comments: warm to touch at ankles bilaterally R>L No evidence of edema Slightly tender to touch, improved from previous exam - Neurological Exam Neurological Exam: Alert, Awake, CN II-XII Intact, Normal Gait, Oriented x3 Neuro motor strength exam: Left Upper Extremity: 5, Right Upper Extremity: 5, Left Lower Extremity: 5, Right Lower Extremity: 5 - Psychiatric Exam Psychiatric exam: Normal Affect, Normal Mood - Skin Skin Exam: Dry, Intact Assessment and Plan - Assessment and Plan (Free Text) Assessment: 78 year old male with PMH of RCC s/p Left nephrectomy with lung mets, DM2, HTN admitted for dizziness, nausea, diarrhea. Patient evaluated and found to be hyponatremic secondary to volume loss and poor oral intake. Patient currently in TCU with stable sodium. Plan: Hyponatremia - Originally presented with severe hyponatremia of 105 on admission - Etiology likely secondary to volume loss and poor oral intake vs. malignancy - Patient Sodium levels increased at appropriate rate - Avoid thiazide diuretics - Correction goal of 6-8meq in 24 hour period - Follow serial BMPs for renal function and electrolyte status ZEINA on CKD stage 3b - Bun/Cr reviewed and appreciated - Patient likely at baseline for CKD - Avoiding nephrotoxic agents including HCTZ and BRIAN-inh CKD IIIb - Proteinuria - Etiology: RCC s/p chemotherapy vs. dz progression in setting of DM2 - Continuing work up, pending free light chains - Urine lytes - Repeat UA - BP stable Elevated Potassium - Potassium elevated past two days - Holding ARB - Low K diet Acute on Chronic Gout - Patient symptoms improved - Proposed etiology secondary to gout - Colchicine 0.6mg - Monitor clinical symptoms - Avoid high protein, high uric acid containing foods Hx of Hypertension - BP is well controlled during TCU admission - MAP goal >65mmHg - Continue with amlodipine Further recommendations as per Dr. Muniz Patient seen, case discussed and plan approved by attending, Dr. Cristy Do PGY2 <Ajay Muniz - Last Filed: 03/12/18 07:06> Objective - Vital Signs/Intake and Output Vital Signs (last 24 hours): Temp Pulse Resp BP Pulse Ox 98.2 F 68 18 119/60 95 03/12/18 06:37 03/12/18 06:37 03/12/18 06:37 03/12/18 06:37 03/12/18 06:37 - Medications Medications: Current Medications Acetaminophen (Tylenol 325mg Tab) 650 mg PO Q4H PRN; Protocol PRN Reason: Pain, Moderate (4-7), fever Last Admin: 03/11/18 09:36 Dose: 650 mg Albuterol/Ipratropium (Duoneb 3 Mg/0.5 Mg (3 Ml) Ud) 3 ml IH [id number] PRN PRN Reason: Shortness of Breath Amlodipine Besylate (Norvasc) 10 mg PO DAILY [facility] PRN Reason: Protocol Last Admin: 03/11/18 09:37 Dose: 10 mg Benzocaine/Menthol (Cepacol Sore Throat) 1 jimenez MT Q2H PRN; Protocol PRN Reason: Sore Throat Colchicine (Colocrys) 0.6 mg PO DAILY [facility] Last Admin: 03/11/18 09:37 Dose: 0.6 mg Enoxaparin Sodium (Lovenox) 30 mg SC 0600 [facility] PRN Reason: Protocol Last Admin: 03/12/18 05:52 Dose: 30 mg Famotidine (Pepcid) 20 mg PO DAILY [facility] Last Admin: 03/11/18 09:37 Dose: 20 mg Sodium Chloride (Sodium Chloride 0.9%) 1,000 mls @ 100 mls/hr IV .Q10H [facility] Stop: 03/13/18 02:59 Insulin Human Regular (Humulin R Low) 0 units SC ACHS [facility] PRN Reason: Protocol Last Admin: 03/12/18 06:37 Dose: Not Given Quetiapine Fumarate (Seroquel) 25 mg PO BID [facility] PRN Reason: Protocol Last Admin: 03/11/18 17:35 Dose: 25 mg - Labs Labs: 03/11/18 09:00 03/11/18 07:00 Attending/Attestation - Attestation I have personally seen and examined this patient.: Yes I have fully participated in the care of the patient.: Yes I have reviewed all pertinent clinical information, including history, physical exam and plan: Yes Notes (Text): Patient seen and examined; I agree with the resident's note as above with the following edits/additions: Patient with DM, htn, CKD IIIB, metastatic RCC, initially admitted with severe hyponatremia which has corrected, now in TCU; Currently with mild ZEINA off losartan; BP controlled on amlodipine 10 mg only; mild hyperkalemia noted; will give IVF (NS at 100 cc/hr) for possible volume depletion; otherwise, should continue to hold ARB for now but needs to be on it group home for anti-proteinuric effect; Gout symptoms improved with colchicine, continue;
[2018-03-11 10:41] LABS: CALCIUM 8.7 mg/dL (8.4-10.5)
[2018-03-11 12:32] LABS: HEMOGLOBIN 8.6 g/dL (14.0-18.0); MEAN PLATELET VOLUME 9.3 fl (7.0-11.0); RBC 2.69 10^6/uL (3.5-6.1); RED CELL DISTRIBUTION WIDTH 14.4 % (11.5-14.5); WHITE BLOOD COUNT 6.7 10^3/ul (4.5-11.0)
--- NOTE | 2018-03-11 13:14 | CP.PCM.PN ---
<Jonathan Odom - Last Filed: 03/11/18 13:10> Subjective - Date & Time of Evaluation Date of Evaluation: 03/11/18 Time of Evaluation: 13:10 - Subjective Subjective: Podiatry Progress Note - Drs. Chavis/Padmaja 78M seen and examined in TCU for bilateral lower extremity pain. Patient reports pain in ankles and midfoot are improving; states he is able to move his LLE freely without discomfort. Endorses pain and swelling in RLE persists though decreased. Tolerating physical therapy w/o issues. Tolerating diet. Denies N/V/F/D/C/SOB/CP/RAZO. Objective - Vital Signs/Intake and Output Vital Signs (last 24 hours): Temp Pulse Resp BP Pulse Ox 97.9 F 72 18 125/70 977 H 03/11/18 06:00 03/11/18 06:00 03/11/18 06:00 03/11/18 09:37 03/11/18 06:00 Intake and Output: 03/11/18 03/11/18 06:59 18:59 Intake Total 420 Output Total 170 Balance 250 - Medications Medications: Current Medications Acetaminophen (Tylenol 325mg Tab) 650 mg PO Q4H PRN; Protocol PRN Reason: Pain, Moderate (4-7), fever Last Admin: 03/11/18 09:36 Dose: 650 mg Albuterol/Ipratropium (Duoneb 3 Mg/0.5 Mg (3 Ml) Ud) 3 ml IH [id number] PRN PRN Reason: Shortness of Breath Amlodipine Besylate (Norvasc) 10 mg PO DAILY [facility] PRN Reason: Protocol Last Admin: 03/11/18 09:37 Dose: 10 mg Benzocaine/Menthol (Cepacol Sore Throat) 1 jimenez MT Q2H PRN; Protocol PRN Reason: Sore Throat Colchicine (Colocrys) 0.6 mg PO DAILY [facility] Last Admin: 03/11/18 09:37 Dose: 0.6 mg Enoxaparin Sodium (Lovenox) 30 mg SC 0600 [facility] PRN Reason: Protocol Last Admin: 03/11/18 06:12 Dose: 30 mg Famotidine (Pepcid) 20 mg PO DAILY [facility] Last Admin: 03/11/18 09:37 Dose: 20 mg Insulin Human Regular (Humulin R Low) 0 units SC ACHS [facility] PRN Reason: Protocol Last Admin: 03/11/18 11:41 Dose: Not Given Quetiapine Fumarate (Seroquel) 25 mg PO BID [facility] PRN Reason: Protocol Last Admin: 03/11/18 09:37 Dose: 25 mg - Labs Labs: 03/11/18 09:00 03/11/18 07:00 - Constitutional Appears: Well, Non-toxic, No Acute Distress - Extremities Exam Additional comments: LE focused exam: Vasc: DP/PT 2/4, Cap refill <3 seconds to all digits. Temp gradient warm to warm from proximal to distal b/l. No increase in warmth noted to left ankle distally. Slight increase in warmth noted to right medial ankle and dorsum of midfoot. Nonpitting edema remains to dorsum of right foot Neuro: Gross and protctive sensations are intact Derm: No open lesions noted. No erythema LLE. Minimal erythema right medial ankle. MSK: Ankle joint ROM improving b/l, minimal pain with right ankle ROM. No pain on palpation noted. Muscle strength 5/5 for all dorsiflexors, plantarflexors, inverters, and everters b/l. - Neurological Exam Neurological Exam: Alert, Awake, Oriented x3 - Psychiatric Exam Psychiatric exam: Normal Affect, Normal Mood Assessment and Plan - Assessment and Plan (Free Text) Assessment: 78M with bilateral foot and ankle pain, likely acute on chronic gout Plan: Patient seen and evaluated Discussed with attending, Dr. Partha BROWN, WBC 6.7 Bilateral ankle XR reviewed: Unremarkable Pain improving, will continue to monitor Continue Colchicine WBAT bilateral LE Continue PT/OT Podiatry will continue to follow <Dora Chavis - Last Filed: 03/15/18 18:40> Objective - Vital Signs/Intake and Output Vital Signs (last 24 hours): Temp Pulse Resp BP Pulse Ox 98.2 F 58 L 20 115/58 L 97 03/13/18 16:00 03/13/18 16:00 03/13/18 16:00 03/14/18 10:40 03/13/18 16:00 - Medications Medications: Current Medications Acetaminophen (Tylenol 325mg Tab) 650 mg PO Q4H PRN; Protocol PRN Reason: Pain, Moderate (4-7), fever Last Admin: 03/11/18 09:36 Dose: 650 mg Albuterol/Ipratropium (Duoneb 3 Mg/0.5 Mg (3 Ml) Ud) 3 ml IH [id number] PRN PRN Reason: Shortness of Breath Amlodipine Besylate (Norvasc) 5 mg PO DAILY [facility] PRN Reason: Protocol Last Admin: 03/14/18 10:40 Dose: Not Given Benzocaine/Menthol (Cepacol Sore Throat) 1 jimenez MT Q2H PRN; Protocol PRN Reason: Sore Throat Enoxaparin Sodium (Lovenox) 30 mg SC 0600 [facility] PRN Reason: Protocol Last Admin: 03/15/18 06:11 Dose: 30 mg Famotidine (Pepcid) 20 mg PO DAILY [facility] Last Admin: 03/15/18 09:22 Dose: 20 mg Insulin Human Regular (Humulin R Low) 0 units SC ACHS [facility] PRN Reason: Protocol Last Admin: 03/15/18 16:38 Dose: Not Given Quetiapine Fumarate (Seroquel) 25 mg PO BID [facility] PRN Reason: Protocol Last Admin: 03/15/18 17:02 Dose: 25 mg - Labs Labs: 03/14/18 06:30 03/14/18 06:30 Attending/Attestation - Attestation I have personally seen and examined this patient.: Yes I have fully participated in the care of the patient.: Yes I have reviewed all pertinent clinical information, including history, physical exam and plan: Yes
[2018-03-11] MEDS ORDERED: Sod Polystyrene Sulf 15 gm/60 ml Susp PO ONE (14:41)
--- NOTE | 2018-03-11 19:40 | PN ---
Copied To: Francesco Lyman MD Attending MD: Francesco Lyman MD DATE: 03/11/2018 PULMONARY PROGRESS NOTE REFERRING PHYSICIAN: Guillermina Garcia MD SUBJECTIVE: He is out of bed to chair. Night was unremarkable. He is sleepy, arousable, used BiPAP part of the night. No cough, no sputum production. No nausea, vomiting, or diarrhea. Ankle pain and foot pain is a little better. PHYSICAL EXAMINATION GENERAL: In no acute distress. VITAL SIGNS: Temperature is 98, heart rate is 72, respiratory rate is 18, blood pressure 125/70, pulse ox 97% on nasal cannula. HEENT: Moist mucous membrane. Small oral cavity. Crowded airway. NECK: Supple. No JVD. LUNGS: Have a fair airflow with rhonchi. HEART: S1 and S2. ABDOMEN: Soft, nontender, no organomegaly. EXTREMITIES: No edema. Both ankles, there is no swelling. NEUROLOGIC: Awake, alert and follows simple commands. MEDICATIONS: He is on Cepacol lozenges every 12 hours p.r.n., colchicine 0.6 mg daily, DuoNeb every 6 hours p.r.n., insulin coverage, Lovenox 30 mg subcu daily, Norvasc 10 mg daily, Pepcid 20 mg daily, Seroquel 25 mg twice a day, Tylenol on p.r.n. basis. LABORATORY DATA: Shows hemoglobin 8.6, hematocrit 26.1, WBC 6.7, platelet count is 304. Chemistry shows sodium 136, potassium 4.4, chloride 105, bicarbonate is 23, BUN 37, creatinine 1.8, glucose is 94, calcium is 8.7. IMPRESSION AND PLAN: Status post severe hyponatremia, which is corrected; unresectable lung cancer, has been on chemotherapy; history of nephrectomy secondary to renal cell carcinoma in the remote past; sleep apnea syndrome; renal failure. Pulmonary point of view, doing well. Continue with current CPAP use. Keep head at 45 degrees. May give one dose of lactulose. Avoid food rich in potassium. Follow up kidney function. Avoid nephrotoxic drugs. We will need PFT and sleep study upon discharge as outpatient. Thank you and we will follow with you. Francesco Lyman MD [facility] # [id number]
--- NOTE | 2018-03-12 03:22 | PN ---
Copied To: Guillermina Garcia MD Attending MD: Guillermina Garcia MD DATE: 03/11/2018 SUBJECTIVE: The patient is a 78-year-old male. The patient was seen and examined, lying on the bed comfortably. Night was unremarkable. No change in the status. Used BiPAP last night. No fever. No chills. No headache. No dizziness. No hematuria. No hematochezia. PHYSICAL EXAMINATION: VITAL SIGNS: Temperature 98, heart rate 72, respiratory rate 18, blood pressure 125/70, pulse oximetry is 97%. HEENT: Head is normocephalic and atraumatic. Eyes; PERRLA. Extraocular muscles are intact. Conjunctivae are clear. Nose is patent. Mucous membranes are moist. NECK: Supple. No carotid bruits, JVD, or thyromegaly. CHEST: Bilaterally symmetrical. HEART: S1 and S2 positive. LUNGS: Clear to auscultation. ABDOMEN: Soft. Bowel sounds present. No organomegaly. EXTREMITIES: No edema. No cyanosis. NEUROLOGIC: The patient is awake and alert. Moving all 4 extremities. No focal deficit. MEDICATIONS: Cepacol lozenges, colchicine, DuoNeb, insulin coverage, Lovenox, Norvasc, Pepcid, Seroquel, Tylenol. LABORATORY DATA: Hemoglobin 8.6, hematocrit 26.1, white blood cells 6.7, and platelets 304. Sodium 136, potassium 4.4, BUN 37, and creatinine 1.8. ASSESSMENT AND PLAN: Mr. Gilberto Robert is a 78-year-old male, status post hyponatremia, improved; unresectable lung cancer, has been on chemotherapy; history of nephrectomy secondary to renal cell carcinoma in the remote past; sleep apnea syndrome; and renal failure. Getting physical therapy. Also sleep apnea syndrome, using CPAP. Keep head at 45 degrees. Avoid food rich in potassium. Potassium is borderline. Follow up kidney function test. Avoid nephrotoxic drugs. Need PFT and sleep study. We will work up as outpatient. Gastrointestinal and deep venous thrombosis prophylaxes. Repeat labs. We will follow up. Guillermina Garcia MD [facility] # [id number]
[2018-03-12] MEDS: Enoxaparin 30 mg Syringe SC SCH (05:52)
[2018-03-12] MEDS: Insulin Reg-LOW-Coverage SC SCH ×4 (06:37→21:28)
--- NOTE | 2018-03-12 08:59 | CP.PCM.PN ---
Subjective - Date & Time of Evaluation Date of Evaluation: 03/12/18 Time of Evaluation: 07:30 - Subjective Subjective: Xavier Do PGY2 - Nephrology Service Progress Note for Dr. Muniz Patient seen and evaluated this AM. No acute events reported by nursing or patient. Patient indicates he continues to have improved lower extremity discomfort. Denies chest pain, shortness of breath, abdominal pain, diarrhea, nausea, vomiting. Objective - Vital Signs/Intake and Output Vital Signs (last 24 hours): Temp Pulse Resp BP Pulse Ox 98.2 F 68 18 119/60 95 03/12/18 06:37 03/12/18 06:37 03/12/18 06:37 03/12/18 06:37 03/12/18 06:37 - Medications Medications: Current Medications Acetaminophen (Tylenol 325mg Tab) 650 mg PO Q4H PRN; Protocol PRN Reason: Pain, Moderate (4-7), fever Last Admin: 03/11/18 09:36 Dose: 650 mg Albuterol/Ipratropium (Duoneb 3 Mg/0.5 Mg (3 Ml) Ud) 3 ml IH [id number] PRN PRN Reason: Shortness of Breath Amlodipine Besylate (Norvasc) 10 mg PO DAILY [facility] PRN Reason: Protocol Last Admin: 03/11/18 09:37 Dose: 10 mg Benzocaine/Menthol (Cepacol Sore Throat) 1 jimenez MT Q2H PRN; Protocol PRN Reason: Sore Throat Colchicine (Colocrys) 0.6 mg PO DAILY [facility] Last Admin: 03/11/18 09:37 Dose: 0.6 mg Enoxaparin Sodium (Lovenox) 30 mg SC 0600 [facility] PRN Reason: Protocol Last Admin: 03/12/18 05:52 Dose: 30 mg Famotidine (Pepcid) 20 mg PO DAILY [facility] Last Admin: 03/11/18 09:37 Dose: 20 mg Sodium Chloride (Sodium Chloride 0.9%) 1,000 mls @ 100 mls/hr IV .Q10H [facility] Stop: 03/13/18 02:59 Insulin Human Regular (Humulin R Low) 0 units SC ACHS [facility] PRN Reason: Protocol Last Admin: 03/12/18 06:37 Dose: Not Given Quetiapine Fumarate (Seroquel) 25 mg PO BID [facility] PRN Reason: Protocol Last Admin: 03/11/18 17:35 Dose: 25 mg - Labs Labs: 03/11/18 09:00 03/11/18 07:00 - Constitutional Appears: No Acute Distress - Head Exam Head Exam: ATRAUMATIC, NORMAL INSPECTION, NORMOCEPHALIC - Eye Exam Eye Exam: EOMI, PERRL - Respiratory Exam Respiratory Exam: Clear to Ausculation Bilateral, NORMAL BREATHING PATTERN - Cardiovascular Exam Cardiovascular Exam: REGULAR RHYTHM, +S1, +S2 - GI/Abdominal Exam GI & Abdominal Exam: Soft, Normal Bowel Sounds - Extremities Exam Extremities Exam: Full ROM. absent: Pedal Edema - Neurological Exam Neurological Exam: Alert, Awake, Oriented x3 Neuro motor strength exam: Left Upper Extremity: 5, Right Upper Extremity: 5, Left Lower Extremity: 5, Right Lower Extremity: 5 - Psychiatric Exam Psychiatric exam: Normal Affect, Normal Mood - Skin Skin Exam: Dry, Intact Assessment and Plan - Assessment and Plan (Free Text) Assessment: 78 year old male with PMH of RCC s/p Left nephrectomy with lung mets, DM2, HTN admitted for dizziness, nausea, diarrhea. Patient evaluated and found to be hyponatremic secondary to volume loss and poor oral intake. Patient currently in TCU with stable sodium. Plan: Hyponatremia - Originally presented with severe hyponatremia of 105 on admission - Etiology likely secondary to volume loss and poor oral intake vs. malignancy - Patient Sodium levels increased at appropriate rate - Avoid thiazide diuretics - Correction goal of 6-8meq in 24 hour period - Follow serial BMPs for renal function and electrolyte status ZEINA on CKD stage 3b - Bun/Cr reviewed and appreciated - Patient likely at baseline for CKD - Avoiding nephrotoxic agents including HCTZ, BRIAN-inh, ARB CKD IIIb - Proteinuria - Etiology: RCC s/p chemotherapy vs. dz progression in setting of DM2 - Continuing work up, pending free light chains - Urine lytes: Urine Na 82, Urine Pot 19.2 - Repeat UA - BP stable Elevated Potassium - Potassium elevated past two days - Holding ARB - Low K diet Acute on Chronic Gout - Patient symptoms improved - Proposed etiology secondary to gout - Colchicine 0.6mg day 2 - Monitor clinical symptoms - Avoid high protein, high uric acid containing foods Hx of Hypertension - BP is well controlled during TCU admission - MAP goal >65mmHg - Continue with amlodipine Further recommendations as per Dr. Muniz Patient seen, case discussed and plan approved by attending, Dr. Cristy Do PGY2
[2018-03-12] MEDS: Sodium Chloride 0.9% 1,000 ML IV SCH ×2 (09:28→17:43)
--- NOTE | 2018-03-12 21:54 | PN ---
Copied To: Francesco Lyman MD Attending MD: Francesco Lyman MD DATE: 03/12/2018 PULMONARY PROGRESS NOTE REFERRING PHYSICIAN: Dr. Garcia. SUBJECTIVE: He is out of bed to chair. Night was unremarkable. Used BiPAP for an hour or two. No headache. No rhinitis. No chest pain. No nausea. No vomiting. No diarrhea. Trace leg swelling. OBJECTIVE: GENERAL: In no acute distress. VITAL SIGNS: Temperature is 98, heart rate is 67, respiratory rate is 18, blood pressure 129/70, pulse ox 97% on room air. HEENT: Moist mucous membrane. Crowded airway. NECK: Supple. No JVD. LUNGS: Have a fair airflow with rhonchi. HEART: S1 and S2. ABDOMEN: Soft and nontender. No organomegaly. EXTREMITIES: There is not much edema. NEUROLOGICAL: Awake and alert. Follows simple command. MEDICATIONS: He is on Cepacol lozenges every 2 hours p.r.n., colchicine 0.6 mg daily, DuoNeb every 6 hours p.r.n., insulin coverage, Lovenox 30 mg subcu daily, Norvasc 10 mg daily, Pepcid 20 mg daily, Seroquel 25 mg twice a day, IV fluid normal saline 100 mL/hour, Tylenol on p.r.n. basis. LABORATORY DATA: Shows sodium 136, potassium 5.4, chloride 105, bicarbonate is 23, BUN 37, creatinine 1.8, glucose is 130, calcium is 8.7. negative. IMPRESSION AND PLAN: Status post severe hyponatremia, which is resolved; now has a renal insufficiency; history of lung cancer, has been on chemotherapy; history of kidney cancer requiring nephrectomy; may have sleep apnea syndrome. Spoke to the patient and the family at bedside. All the questions answered. May have gout in the ankles. On IV fluid for renal insufficiency. Follow up electrolyte in the morning. Encourage continuous positive airway pressure use. Fall precaution. Continue therapy. Thank you and we will follow with you. Francesco Lyman MD
--- NOTE | 2018-03-13 05:32 | PN ---
Copied To: Guillermina Garcia MD Attending MD: Guillermina Garcia MD DATE: 03/12/2018 SUBJECTIVE: Patient was seen and examined on the bedside, sitting on the chair. Used BiPAP for an hour or two, does not like that. No headache. No dizziness. Night was unremarkable. No fever. No chills. Trace leg swelling and complaining about knee pain. PHYSICAL EXAMINATION: VITAL SIGNS: Temperature 98, heart rate 67, respiratory rate 18, blood pressure 129/70, pulse oximetry 97%. HEENT: Head normocephalic and atraumatic. Eyes, PERRLA. Extraocular muscles intact. Conjunctivae clear. Nose patent. Mucous membranes moist. NECK: Supple. No carotid bruit, JVD, thyromegaly. LUNGS: Have fair airflow with few rhonchi. HEART: S1 and S2 positive. ABDOMEN: Soft. Nontender. No organomegaly. EXTREMITIES: Have trace edema. NEUROLOGIC: Awake and alert. Moving all 4 extremities. No focal deficits. MEDICATIONS: Cepacol lozenges, colchicine, insulin coverage, Lovenox, Norvasc, Pepcid, Seroquel, and Tylenol. LABORATORY DATA: Sodium 136, potassium 5.4, BUN 37, creatinine 1.8, glucose noted , calcium 8.7. ASSESSMENT AND PLAN: Mr. Gilberto Robert is a 78-year-old male, status post severe hyponatremia, replaced; now has renal insufficiency, improving; history of lung cancer, on chemotherapy; history of kidney cancer, requiring nephrectomy; has gouty arthritis, getting colchicine; sleep apnea syndrome, and getting physical therapy. Dr. Lyman spoke to the patient's family on the bedside, and all questions answered, on intravenous fluid due to renal insufficiency. Getting physical therapy. We will repeat labs. Gastrointestinal and deep venous thrombosis prophylaxes. Fall precautions. We will follow up. Guillermina Garcia MD MTDD
[2018-03-13] MEDS: Enoxaparin 30 mg Syringe SC SCH (06:28)
[2018-03-13] MEDS: Insulin Reg-LOW-Coverage SC SCH ×4 (06:34→21:24)
--- NOTE | 2018-03-13 06:55 | CP.PCM.PN ---
Subjective - Date & Time of Evaluation Date of Evaluation: 03/13/18 Time of Evaluation: 06:52 - Subjective Subjective: Xavier Do PGY2 - Nephrology Progress Note for Dr. Muniz Patient seen and examined this AM. Patient reported having low blood sugar requiring juice and sandwich. He indicated that prior to his snack he was sweaty , nauseous, and weak. He reports feeling back to baseline. Patient denies chest pain, shortness of breath, abdominal pain, fever, chills. Denies urinary complaints. Patient reports eating and drinking fluids over past 24 hours. 12 point ROS is benign other than mentioned. Objective - Vital Signs/Intake and Output Vital Signs (last 24 hours): Temp Pulse Resp BP Pulse Ox 97.7 F 67 18 129/70 97 03/12/18 09:44 03/12/18 09:44 03/12/18 09:44 03/12/18 09:44 03/12/18 09:44 Intake and Output: 03/12/18 03/13/18 18:59 06:59 Intake Total 420 Output Total 170 Balance 250 - Medications Medications: Current Medications Acetaminophen (Tylenol 325mg Tab) 650 mg PO Q4H PRN; Protocol PRN Reason: Pain, Moderate (4-7), fever Last Admin: 03/11/18 09:36 Dose: 650 mg Albuterol/Ipratropium (Duoneb 3 Mg/0.5 Mg (3 Ml) Ud) 3 ml IH [id number] PRN PRN Reason: Shortness of Breath Amlodipine Besylate (Norvasc) 10 mg PO DAILY [facility] PRN Reason: Protocol Last Admin: 03/12/18 09:28 Dose: 10 mg Benzocaine/Menthol (Cepacol Sore Throat) 1 jimenez MT Q2H PRN; Protocol PRN Reason: Sore Throat Colchicine (Colocrys) 0.6 mg PO DAILY [facility] Last Admin: 03/12/18 09:29 Dose: 0.6 mg Enoxaparin Sodium (Lovenox) 30 mg SC 0600 [facility] PRN Reason: Protocol Last Admin: 03/13/18 06:28 Dose: 30 mg Famotidine (Pepcid) 20 mg PO DAILY [facility] Last Admin: 03/12/18 09:29 Dose: 20 mg Insulin Human Regular (Humulin R Low) 0 units SC ACHS [facility] PRN Reason: Protocol Last Admin: 03/13/18 06:34 Dose: Not Given Quetiapine Fumarate (Seroquel) 25 mg PO BID [facility] PRN Reason: Protocol Last Admin: 03/12/18 17:42 Dose: 25 mg - Labs Labs: 03/11/18 09:00 03/11/18 07:00 - Head Exam Head Exam: ATRAUMATIC, NORMAL INSPECTION, NORMOCEPHALIC - Eye Exam Eye Exam: EOMI, PERRL - ENT Exam ENT Exam: Mucous Membranes Moist - Respiratory Exam Respiratory Exam: Clear to Ausculation Bilateral, NORMAL BREATHING PATTERN. absent: Rhonchi, Wheezes - Cardiovascular Exam Cardiovascular Exam: REGULAR RHYTHM, +S1, +S2 - GI/Abdominal Exam GI & Abdominal Exam: Soft, Normal Bowel Sounds. absent: Tenderness - Extremities Exam Extremities Exam: Tenderness (to palpation at anterior ankles and plantar aspect of feet b/l). absent: Calf Tenderness, Pedal Edema - Neurological Exam Neurological Exam: Alert, Awake, CN II-XII Intact, Oriented x3 Neuro motor strength exam: Left Upper Extremity: 5, Right Upper Extremity: 5, Left Lower Extremity: 5, Right Lower Extremity: 5 - Psychiatric Exam Psychiatric exam: Normal Affect, Normal Mood - Skin Skin Exam: Dry, Intact Assessment and Plan - Assessment and Plan (Free Text) Assessment: 78 year old male with PMH of metastatic RCC s/p Left nephrectomy with lung mets , DM2, HTN initially admitted for severe hyponatremia. Patient sodium has been corrected and is now in TCU. Plan: Hyponatremia - Originally presented with severe hyponatremia of 105 on admission - Etiology likely secondary to volume loss and poor oral intake vs. malignancy - Patient Sodium levels increased at appropriate rate - Avoid thiazide diuretics ZEINA on CKD stage 3b - Bun/Cr reviewed and appreciated - Patient likely at baseline for CKD - Avoiding nephrotoxic agents including HCTZ, BRIAN-inh, ARB - IV NS at 100mL/Hr completed therapy 1000mL CKD IIIb - Proteinuria - Etiology: RCC s/p chemotherapy vs. dz progression in setting of DM2 - Continuing work up, pending free light chains - Urine lytes: Urine Na 82, Urine Pot 19.2 - Repeat UA - BP stable Elevated Potassium - Holding ARB - Low K diet Acute on Chronic Gout - Patient symptoms improved - Proposed etiology secondary to gout - Colchicine 0.6mg day 3 - Monitor clinical symptoms - Avoid high protein, high uric acid containing foods Hx of Hypertension - BP is well controlled during TCU admission - MAP goal >65mmHg - Continue with amlodipine Further recommendations as per Dr. Muniz Patient seen, case discussed and plan approved by attending, Dr. Cristy Do PGY2
[2018-03-13 07:08] LABS: CALCIUM 8.6 mg/dL (8.4-10.5)
[2018-03-13 09:04] LABS: URINE BILIRUBIN NEGATIVE (NEGATIVE); URINE BLOOD NEGATIVE (NEGATIVE); URINE GLUCOSE (UA) NEGATIVE (NEGATIVE); URINE LEUKOCYTE ESTERASE NEGATIVE Leu/uL (NEGATIVE); URINE PROTEIN 30 mg/dL (<30 mg/dL); URINE UROBILINOGEN 0.2 E.U./dL (<1 E.U./dL)
[2018-03-13 09:10] LABS: URINE APPEARANCE CLEAR (CLEAR); URINE COLOR YELLOW (YELLOW)
[2018-03-13 09:26] LABS: URINE RBC 0 - 2 /hpf (0-2)
[2018-03-13 09:27] LABS: URINE AMORPHOUS SEDIMENT FEW; URINE BACTERIA MANY (NEG); URINE COARSE GRANULAR CAST TRACE /hpf (0-2)
--- NOTE | 2018-03-13 15:23 | CP.PCM.PN ---
<Jonathan Odom - Last Filed: 03/13/18 15:10> Subjective - Date & Time of Evaluation Date of Evaluation: 03/13/18 Time of Evaluation: 15:10 - Subjective Subjective: Podiatry Progress Note - Drs. Chavis/Padmaja 78M seen and examined in TCU for bilateral lower extremity pain. Patient OOB in chair at time of visit. Patient reports pain in lower extremity improving w/no new complaint. Tolerating physical therapy. Tolerating diet. Reports nausea earlier this AM that has since resolved. Denies v/f/d/c/sob/RAZO/cp. Objective - Vital Signs/Intake and Output Vital Signs (last 24 hours): Temp Pulse Resp BP Pulse Ox 97.7 F 67 18 116/65 97 03/12/18 09:44 03/12/18 09:44 03/12/18 09:44 03/13/18 10:02 03/12/18 09:44 - Medications Medications: Current Medications Acetaminophen (Tylenol 325mg Tab) 650 mg PO Q4H PRN; Protocol PRN Reason: Pain, Moderate (4-7), fever Last Admin: 03/11/18 09:36 Dose: 650 mg Albuterol/Ipratropium (Duoneb 3 Mg/0.5 Mg (3 Ml) Ud) 3 ml IH [id number] PRN PRN Reason: Shortness of Breath Amlodipine Besylate (Norvasc) 5 mg PO DAILY [facility] PRN Reason: Protocol Benzocaine/Menthol (Cepacol Sore Throat) 1 jimenez MT Q2H PRN; Protocol PRN Reason: Sore Throat Colchicine (Colocrys) 0.6 mg PO DAILY [facility] Last Admin: 03/13/18 10:01 Dose: 0.6 mg Enoxaparin Sodium (Lovenox) 30 mg SC 0600 [facility] PRN Reason: Protocol Last Admin: 03/13/18 06:28 Dose: 30 mg Famotidine (Pepcid) 20 mg PO DAILY [facility] Last Admin: 03/13/18 10:02 Dose: 20 mg Insulin Human Regular (Humulin R Low) 0 units SC ACHS [facility] PRN Reason: Protocol Last Admin: 03/13/18 12:36 Dose: Not Given Quetiapine Fumarate (Seroquel) 25 mg PO BID [facility] PRN Reason: Protocol Last Admin: 03/13/18 10:02 Dose: 25 mg Spironolactone (Aldactone) 25 mg PO DAILY [facility] - Labs Labs: 03/11/18 09:00 03/13/18 06:30 - Constitutional Appears: Non-toxic, No Acute Distress - Extremities Exam Additional comments: LE focused exam: Vasc: DP/PT 2/4, Cap refill <3 seconds to all digits. Temp gradient warm to warm from proximal to distal b/l. No increase in warmth noted to left ankle distally. No increase in warmth noted to right medial ankle and dorsum of midfoot. Nonpitting edema remains to dorsum of right foot. Neuro: Gross and protective sensations intact Derm: No open lesions noted. No erythema LLE. Erythema right medial ankle resolving MSK: Ankle joint ROM improving b/l, minimal pain with right ankle ROM. No pain on palpation noted. Muscle strength 5/5 for all dorsiflexors, plantarflexors, inverters, and everters b/l. - Neurological Exam Neurological Exam: Alert, Awake, Oriented x3 - Psychiatric Exam Psychiatric exam: Normal Affect, Normal Mood Assessment and Plan - Assessment and Plan (Free Text) Assessment: 78M with bilateral foot and ankle pain, likely acute on chronic gout Plan: Patient seen and evaluated Discussed with attending, Dr. Padmaja BROWN Bilateral ankle XR reviewed: Unremarkable Pain improving, will continue to monitor Continue Colchicine WBAT bilateral LE Continue PT/OT Podiatry will continue to follow <Wilver Giang - Last Filed: 03/13/18 17:43> Objective - Vital Signs/Intake and Output Vital Signs (last 24 hours): Temp Pulse Resp BP Pulse Ox 98.2 F 58 L 20 106/50 L 97 03/13/18 16:00 03/13/18 16:00 03/13/18 16:00 03/13/18 16:00 03/13/18 16:00 - Medications Medications: Current Medications Acetaminophen (Tylenol 325mg Tab) 650 mg PO Q4H PRN; Protocol PRN Reason: Pain, Moderate (4-7), fever Last Admin: 03/11/18 09:36 Dose: 650 mg Albuterol/Ipratropium (Duoneb 3 Mg/0.5 Mg (3 Ml) Ud) 3 ml IH [id number] PRN PRN Reason: Shortness of Breath Amlodipine Besylate (Norvasc) 5 mg PO DAILY [facility] PRN Reason: Protocol Benzocaine/Menthol (Cepacol Sore Throat) 1 jimenez MT Q2H PRN; Protocol PRN Reason: Sore Throat Colchicine (Colocrys) 0.6 mg PO DAILY [facility] Last Admin: 03/13/18 10:01 Dose: 0.6 mg Enoxaparin Sodium (Lovenox) 30 mg SC 0600 [facility] PRN Reason: Protocol Last Admin: 03/13/18 06:28 Dose: 30 mg Famotidine (Pepcid) 20 mg PO DAILY [facility] Last Admin: 03/13/18 10:02 Dose: 20 mg Insulin Human Regular (Humulin R Low) 0 units SC ACHS [facility] PRN Reason: Protocol Last Admin: 03/13/18 12:36 Dose: Not Given Quetiapine Fumarate (Seroquel) 25 mg PO BID [facility] PRN Reason: Protocol Last Admin: 03/13/18 10:02 Dose: 25 mg Spironolactone (Aldactone) 25 mg PO DAILY [facility] - Labs Labs: 03/11/18 09:00 03/13/18 06:30 Attending/Attestation - Attestation I have personally seen and examined this patient.: Yes I have fully participated in the care of the patient.: Yes I have reviewed all pertinent clinical information, including history, physical exam and plan: Yes
[2018-03-13] MEDS ORDERED: Sod Polystyrene Sulf 15 gm/60 ml Susp PO ONE (22:05)
--- NOTE | 2018-03-13 23:23 | PN ---
Copied To: Francesco Lyman MD Attending MD: Francesco Lyman MD DATE: 03/13/2018 PULMONARY PROGRESS NOTE REFERRING PHYSICIAN: Guillermina Garcia MD. SUBJECTIVE: The patient is sitting up in a reclining chair. Night was unremarkable. Doing well in therapy. No headache. No rhinitis. No nausea or vomiting. No diarrhea. Trace leg swelling. OBJECTIVE: GENERAL: In no acute distress. VITAL SIGNS: Temp is 98, heart rate is 58, respiratory rate is 20, blood pressure 106/50, pulse of 97% on room air. HEENT: Moist mucous membrane. Crowded airway. NECK: Supple. No JVD. LUNGS: Have a few scattered rhonchi. HEART: S1 and S2. ABDOMEN: Soft, nontender. No organomegaly. EXTREMITIES: Does have edema. NEUROLOGICAL: Awake and alert, follows simple command. MEDICATIONS: He is on Aldactone 25 mg daily, benzocaine every 2 hours p.r.n., colchicine 0.6 mg daily, DuoNeb every 6 hours p.r.n., insulin coverage, Lovenox 30 mg subcu daily, Norvasc 5 mg daily, Pepcid 20 mg daily, Seroquel 25 mg twice a day, Tylenol p.r.n. LABORATORY DATA: Shows sodium 138, potassium 4.5, chloride 106, bicarbonate 21, BUN 43, creatinine 1.7, glucose 101, calcium is 8.6. IMPRESSION AND PLAN: Status post severe hyponatremia, which is resolved; renal insufficiency; lung cancer, been on chemotherapy; history of renal cell carcinoma, nephrectomy, has a one kidney; may have sleep apnea syndrome. Pulmonary point of view, doing well. Continue continuous positive airway pressure while sleeping. Keep head at 45 degrees. Fall precaution. Careful with extra fluids. May need followup echo to assure the stability of left ventricle and right ventricle function. Thank you and we will follow with you. Francesco Lyman MD
--- NOTE | 2018-03-14 01:58 | PN ---
Copied To: Guillermina Garcia MD Attending MD: Guillermina Garcia MD DATE: 03/13/2018 SUBJECTIVE: The patient is 78 years old male. The patient is seen and examined at the bedside, looking comfortable. and daughter was sitting on the bedside. No headache, no dizziness. No chest pain, no palpitation. The patient had episode of low blood sugar, then juice and sandwich was given. No fever, no chills. PHYSICAL EXAMINATION: VITAL SIGNS: Temperature 97.7, pulse 67, respiratory rate 18, blood pressure 129/70, pulse oximetry 97. HEENT: Head normocephalic, atraumatic. Eyes: PERRLA. Extraocular muscles intact. Conjunctivae clear. Nose patent. Mucous membrane moist. NECK: Supple. No carotid bruit. No JVD, thyromegaly. CHEST: Bilaterally symmetrical. HEART: S1, S2 positive. LUNGS: Clear to auscultation. ABDOMEN: Soft, bowel sounds present. No organomegaly. EXTREMITIES: No edema, no cyanosis. NEUROLOGICAL: The patient is awake, alert, moving all 4 extremities. No focal deficit. LABORATORY DATA: White blood cell is 6.7, hemoglobin 8.6, hematocrit 26.1, platelets 304. Sodium 136, potassium 5.4, BUN 37, creatinine 1.8, glucose 94. MEDICATIONS: Tylenol, DuoNeb, Norvasc, Cepacol, Lovenox, Pepcid, insulin, Seroquel. ASSESSMENT AND PLAN: Mr. Gilberto Robert is 78 years old male with anemia, hyperkalemia, renal insufficiency, has metastatic renal cell carcinoma, status post left nephrectomy with the lung metastasis, diabetes mellitus, hypertension, was admitted severe with hyponatremia, now sodium has been corrected in the ICU. His sodium level was 105 on admission, poor oral intake versus malignancy. The patient's sodium level increased at appropriate rate via the thiazide diuretics as per Nephrology. Acute kidney injury on chronic kidney disease stage IIIB. The patient likely at baseline of chronic kidney disease now. Avoiding nephrotoxic, including ACT with BRIAN inhibitors, ARB. The patient has proteinuria, elevated potassium level, holding ARB, low-potassium diet, acute on chronic gout, colchicine the patient is getting day #3. Avoid high-protein diet. Hypertension is getting controlled. Dr. Muniz is on the case. The patient is seen by office machine servicer apprentice, getting physical therapy. Gastrointestinal and deep venous thrombosis prophylaxis. Repeat labs, we will follow. Guillermina Garcia MD MTDD
[2018-03-14] MEDS: Enoxaparin 30 mg Syringe SC SCH (06:12)
[2018-03-14] MEDS: Insulin Reg-LOW-Coverage SC SCH ×4 (06:57→22:59)
[2018-03-14 07:04] LABS: CALCIUM 8.5 mg/dL (8.4-10.5)
[2018-03-14 07:16] LABS: HEMOGLOBIN 8.1 g/dL (14.0-18.0); MEAN CELL VOLUME 97.7 fl (80.0-105.0); MEAN CORPUSCULAR HEMOGLOBIN 31.2 pg (25.0-35.0); MEAN CORPUSCULAR HGB CONC 31.9 g/dl (31.0-37.0); MEAN PLATELET VOLUME 9.1 fl (7.0-11.0); RBC 2.6 10^6/uL (3.5-6.1); RED CELL DISTRIBUTION WIDTH 14.2 % (11.5-14.5); WHITE BLOOD COUNT 4.3 10^3/ul (4.5-11.0)
--- NOTE | 2018-03-14 09:47 | PN ---
Copied To: Wilver Giang DPM Attending MD: Wilver Giang DPM DATE: 03/14/2018 SUBJECTIVE: A 78-year-old male, I have seen in the TCU for continued evaluation and management of bilateral lower extremity pain. The patient is reporting much less pain taking the colchicine. He denies any nausea or any other GI upset since taking the colchicine. Denies experiencing fever, chills, nausea, vomiting or shortness of breath. The patient's vital signs revealed temperature of 98.2, pulse rate of 58, blood pressure 106/50, respiratory rate of 20. Laboratory findings reveal uric acid level of 5.7, a BUN of 35, creatinine of 1.7. White blood cell count of 4.3, hemoglobin of 8.1, hematocrit of 25.4, platelet count of 296. OBJECTIVE: Palpable pedal pulses noted bilaterally. Temperature gradient is within normal limits bilaterally. Capillary filling time is within normal limits bilaterally. There is decreasing edema on both ankles and on the dorsum of each foot midfoot. There is no increased temperature gradient. There is no point of exquisite pain upon palpation. Gross and protective sensations are intact bilaterally. ASSESSMENT: A 78-year-old with bilateral foot and ankle pain, responding well to colchicine 0.6 mg p.o. once daily. Resolving acute gout. PLAN: The patient is seen and evaluated. We will continue with the colchicine 0.6 mg once daily. The patient was encouraged to continue weightbearing as tolerated. The patient will be seen and followed daily. Wilver Giang DPM
--- NOTE | 2018-03-14 16:37 | PN ---
Copied To: Francesco Lyman MD Attending MD: Francesco Lyman MD DATE: 03/14/2018 PULMONARY PROGRESS NOTE REFERRING PHYSICIAN: Guillermina Garcia MD. SUBJECTIVE: He is out of bed to reclining chair. Night was unremarkable. Part of the night used CPAP. No headache. No rhinitis. No nausea. No vomiting. No diarrhea. Still has leg swelling. OBJECTIVE: GENERAL: In no acute distress. VITAL SIGNS: Temperature is 98, heart rate is 58, respiratory rate is 20, blood pressure 106/50, pulse ox 97% on room air. HEENT: Moist mucous membranes. Small oral cavity. Crowded airway. NECK: Supple. No JVD. LUNGS: Have a fair airflow with few rhonchi. HEART: S1 and S2. ABDOMEN: Soft, nontender. No organomegaly. EXTREMITIES: Does have ankle edema. NEUROLOGICAL: Awake and alert. Follows simple command. MEDICATIONS: He is on Cepacol Lozenges every 2 hours p.r.n., colchicine 0.6 mg daily, DuoNeb every 6 hours p.r.n., Norvasc 5 mg daily, Lovenox 30 mg subcu daily, Pepcid 20 mg daily, Seroquel 25 mg twice a day, Tylenol p.r.n. basis. LABORATORY DATA: Shows hemoglobin 8.1, hematocrit 25.4, WBC 4.3, platelet count is 296. Sodium 139, potassium 4.8, chloride 108, bicarbonate 23, BUN 35, creatinine 1.7, glucose 94, calcium is 8.5. HIV 1 and 2 have been nonreactive. IMPRESSION AND PLAN: Status post severe hyponatremia, which is resolved; renal insufficiency; history of nephrectomy secondary to renal cell carcinoma; lung cancer, has been on chemotherapy; may have a sleep apnea syndrome. Pulmonary point of view, doing okay. Continue bronchodilator, fall precaution, sleep apnea precaution. Encourage continuous positive airway pressure use. Follow up BUN, creatinine. Thank you and we will follow with you. Francesco Lyman MD
--- NOTE | 2018-03-14 23:37 | CP.PCM.PN ---
Subjective - Date & Time of Evaluation Date of Evaluation: 03/14/18 Time of Evaluation: 11:00 - Subjective Subjective: Reports feeling well; no sob; tolerating diet; reported to have low/normal BP by nursing staff; Objective - Vital Signs/Intake and Output Vital Signs (last 24 hours): Temp Pulse Resp BP Pulse Ox 98.2 F 58 L 20 115/58 L 97 03/13/18 16:00 03/13/18 16:00 03/13/18 16:00 03/14/18 10:40 03/13/18 16:00 - Medications Medications: Current Medications Acetaminophen (Tylenol 325mg Tab) 650 mg PO Q4H PRN; Protocol PRN Reason: Pain, Moderate (4-7), fever Last Admin: 03/11/18 09:36 Dose: 650 mg Albuterol/Ipratropium (Duoneb 3 Mg/0.5 Mg (3 Ml) Ud) 3 ml IH [id number] PRN PRN Reason: Shortness of Breath Amlodipine Besylate (Norvasc) 5 mg PO DAILY [facility] PRN Reason: Protocol Last Admin: 03/14/18 10:40 Dose: Not Given Benzocaine/Menthol (Cepacol Sore Throat) 1 jimenez MT Q2H PRN; Protocol PRN Reason: Sore Throat Colchicine (Colocrys) 0.6 mg PO DAILY [facility] Last Admin: 03/14/18 10:40 Dose: 0.6 mg Enoxaparin Sodium (Lovenox) 30 mg SC 0600 [facility] PRN Reason: Protocol Last Admin: 03/14/18 06:12 Dose: 30 mg Famotidine (Pepcid) 20 mg PO DAILY [facility] Last Admin: 03/14/18 10:41 Dose: 20 mg Insulin Human Regular (Humulin R Low) 0 units SC ACHS [facility] PRN Reason: Protocol Last Admin: 03/14/18 22:59 Dose: Not Given Quetiapine Fumarate (Seroquel) 25 mg PO BID [facility] PRN Reason: Protocol Last Admin: 03/14/18 17:26 Dose: 25 mg - Labs Labs: 03/14/18 06:30 03/14/18 06:30 - Constitutional Appears: Non-toxic, No Acute Distress - Eye Exam Eye Exam: Normal appearance - Respiratory Exam Respiratory Exam: Clear to Ausculation Bilateral. absent: Respiratory Distress - Cardiovascular Exam Cardiovascular Exam: RRR, +S1, +S2 - GI/Abdominal Exam GI & Abdominal Exam: Soft. absent: Distended, Tenderness - Extremities Exam Additional comments: mild b/l ankle edema; - Neurological Exam Neurological Exam: Alert, Awake - Psychiatric Exam Psychiatric exam: Normal Mood. absent: Agitated - Skin Skin Exam: Normal Color. absent: Cyanosis Assessment and Plan (1) ZEINA (acute kidney injury) Assessment & Plan: Renal function stable but serum creatinine still not at baseline; may have suffered some tubular injury when he was briefly hypotensive; will monitor periodically; avoid nephrotoxic agents; Status: Acute (2) Anemia Assessment & Plan: Stable; holding off on EPO in the setting of metastatic RCC; iron sat low, will check ferritin before giving IV iron; Status: Chronic (3) HTN (hypertension) Assessment & Plan: BP low/normal; amlodipine dose already decreased, holding today; Status: Acute (4) CKD (chronic kidney disease) Assessment & Plan: Proteinuric kidney disease in the setting of DM, L nephrectomy and being on chemo; once BP allows, will restart losartan at low dose for anti-proteinuric effect; Status: Chronic
[2018-03-15] MEDS: Enoxaparin 30 mg Syringe SC SCH (06:11)
[2018-03-15] MEDS: Insulin Reg-LOW-Coverage SC SCH ×4 (07:15→21:12)
--- NOTE | 2018-03-15 09:15 | CP.PCM.PN ---
<Steven Carney - Last Filed: 03/15/18 09:12> Subjective - Date & Time of Evaluation Date of Evaluation: 03/15/18 Time of Evaluation: 09:12 - Subjective Subjective: Podiatry Progress Note - Drs. Chavis/Padmaja 78M seen and examined in [facility] for bilateral lower extremity pain. Patient found to be exercising with a physical therapist. Patient reports no pain pain in lower extremity since starting the Colchicine. Tolerating physical therapy. Tolerating diet. Denies n/v/f/d/c/sob/RAZO/cp. Objective - Vital Signs/Intake and Output Vital Signs (last 24 hours): Temp Pulse Resp BP Pulse Ox 98.2 F 58 L 20 115/58 L 97 03/13/18 16:00 03/13/18 16:00 03/13/18 16:00 03/14/18 10:40 03/13/18 16:00 - Medications Medications: Current Medications Acetaminophen (Tylenol 325mg Tab) 650 mg PO Q4H PRN; Protocol PRN Reason: Pain, Moderate (4-7), fever Last Admin: 03/11/18 09:36 Dose: 650 mg Albuterol/Ipratropium (Duoneb 3 Mg/0.5 Mg (3 Ml) Ud) 3 ml IH [id number] PRN PRN Reason: Shortness of Breath Amlodipine Besylate (Norvasc) 5 mg PO DAILY [facility] PRN Reason: Protocol Last Admin: 03/14/18 10:40 Dose: Not Given Benzocaine/Menthol (Cepacol Sore Throat) 1 jimenez MT Q2H PRN; Protocol PRN Reason: Sore Throat Enoxaparin Sodium (Lovenox) 30 mg SC 0600 [facility] PRN Reason: Protocol Last Admin: 03/15/18 06:11 Dose: 30 mg Famotidine (Pepcid) 20 mg PO DAILY [facility] Last Admin: 03/14/18 10:41 Dose: 20 mg Insulin Human Regular (Humulin R Low) 0 units SC ACHS [facility] PRN Reason: Protocol Last Admin: 03/15/18 07:15 Dose: Not Given Quetiapine Fumarate (Seroquel) 25 mg PO BID [facility] PRN Reason: Protocol Last Admin: 03/14/18 17:26 Dose: 25 mg - Labs Labs: 03/14/18 06:30 03/14/18 06:30 - Constitutional Appears: Well, Non-toxic, No Acute Distress - Head Exam Head Exam: ATRAUMATIC, NORMOCEPHALIC - Extremities Exam Additional comments: LE focused exam: Vasc: DP/PT 2/4, Cap refill <3 seconds to all digits. Temp gradient warm to warm from proximal to distal b/l. No increase in warmth noted to left ankle distally. No increase in warmth noted to right medial ankle and dorsum of midfoot. Nonpitting edema remains to dorsum of right foot. Neuro: Gross and protective sensations intact Derm: No open lesions noted. No erythema LLE. Erythema right medial ankle resolving MSK: Ankle joint ROM improving b/l, no pain with right ankle ROM. No pain on palpation noted. Muscle strength 5/5 for all dorsiflexors, plantarflexors, inverters, and everters b/l. - Neurological Exam Neurological Exam: Alert, Awake, Oriented x3 - Psychiatric Exam Psychiatric exam: Normal Affect, Normal Mood Assessment and Plan - Assessment and Plan (Free Text) Assessment: 78M with bilateral foot and ankle pain, likely acute on chronic gout Plan: Patient seen and evaluated Discussed with attending, Dr. Padmaja BROWN Bilateral ankle XR reviewed: Unremarkable Pain improved a per patient Colchicine will be discontinued as patient is stating he does not have pain at this time WBAT bilateral LE Continue PT/OT Podiatry will sign off on the patient at this time Please re-consult podiatry if patient's pain returns Patient to follow up in Podiatry in clinic as needed <Wilver Giang - Last Filed: 03/17/18 11:21> Objective - Vital Signs/Intake and Output Vital Signs (last 24 hours): Temp Pulse Resp BP Pulse Ox 98.8 F 64 14 126/50 L 97 03/16/18 22:00 03/16/18 10:00 03/16/18 10:00 03/16/18 10:00 03/16/18 10:00 - Medications Medications: Current Medications Acetaminophen (Tylenol 325mg Tab) 650 mg PO Q4H PRN; Protocol PRN Reason: Pain, Moderate (4-7), fever Last Admin: 03/11/18 09:36 Dose: 650 mg Albuterol/Ipratropium (Duoneb 3 Mg/0.5 Mg (3 Ml) Ud) 3 ml IH [id number] PRN PRN Reason: Shortness of Breath Benzocaine/Menthol (Cepacol Sore Throat) 1 jimenez MT Q2H PRN; Protocol PRN Reason: Sore Throat Cholecalciferol (Vitamin D) 4,000 intlu PO DAILY [facility] Last Admin: 03/17/18 11:17 Dose: 4,000 intlu Famotidine (Pepcid) 20 mg PO DAILY [facility] Last Admin: 03/17/18 10:05 Dose: 20 mg Insulin Human Regular (Humulin R Low) 0 units SC ACHS [facility] PRN Reason: Protocol Last Admin: 03/17/18 09:02 Dose: Not Given Quetiapine Fumarate (Seroquel) 25 mg PO BID [facility] PRN Reason: Protocol Last Admin: 03/17/18 10:05 Dose: 25 mg - Labs Labs: 03/14/18 06:30 03/14/18 06:30 Attending/Attestation - Attestation I have personally seen and examined this patient.: Yes I have fully participated in the care of the patient.: Yes I have reviewed all pertinent clinical information, including history, physical exam and plan: Yes
--- NOTE | 2018-03-15 21:49 | PN ---
Copied To: Guillermina Garcia MD Attending MD: Guillermina Garcia MD DATE: 03/15/2018 SUBJECTIVE: The patient is seen and examined on the bedside, looking comfortable. Sitting on the chair. No nausea, vomiting, diarrhea. No hematuria or hematochezia. No swelling of the leg. No chest pain. No palpitation. No headache. No dizziness. PHYSICAL EXAMINATION: VITAL SIGNS: Temperature 98.2, pulse 58, respiratory rate 20, blood pressure 115/58, pulse oximetry 97. HEENT: Head normocephalic, atraumatic. Eyes PERRLA. Extraocular muscles intact. Conjunctivae clear. Nose patent. Mucous membrane moist. NECK: Supple. No carotid bruit. No JVD. No thyromegaly. CHEST: Bilaterally symmetrical. HEART: S1 and S2 positive. LUNGS: Clear to auscultation. ABDOMEN: Soft. Bowel sounds positive. No organomegaly. EXTREMITIES: No edema. No cyanosis. NEUROLOGICAL: The patient is awake and alert. Moving all 4 extremities. No focal deficits. MEDICATIONS: Tylenol, DuoNeb, Norvasc, Cepacol lozenges, Lovenox, Pepcid, insulin, Seroquel. LABORATORY DATA: White blood cells 4.3, hemoglobin 8.1, hematocrit 25.4, platelets 296. Sodium 139, potassium 4.8, BUN 35, creatinine 1.7, glucose 94. ASSESSMENT AND PLAN: Mr. Gilberto Robert, 78-year-old male with leukopenia, anemia, renal insufficiency, has bilateral foot and ankle pain, rule out gouty arthritis. Bilateral ankle x-ray reviewed, unremarkable. Colchicine will discontinue as the patient is stating he does not have pain at this time. Podiatry signed off because of feet are stable. Seen by Nephrology, Dr. Ajay Muniz and rug inspector, Dr. Lyman. Status post severe hyponatremia, which is resolved; renal insufficiency, improved; history of nephrectomy secondary to renal cell carcinoma; lung cancer, has been on chemotherapy; sleep apnea syndrome. Continue bronchodilator. Fall precautions. Gastrointestinal, deep venous thrombosis prophylaxes. We will follow up. Guillermina Garcia MD
--- NOTE | 2018-03-15 23:34 | PN ---
Copied To: Francesco Lyman MD Attending MD: Francesco Lyman MD DATE: 03/15/2018 PULMONARY PROGRESS NOTE REFERRING PHYSICIAN: Dr. Garcia SUBJECTIVE: The patient is out of bed to chair, sleepy, arousable. Night was unremarkable. Doing better in therapy. No headache, no rhinitis. No cough. No nausea, no vomiting, no diarrhea. Decreased leg swelling. OBJECTIVE: GENERAL: In no acute distress. VITAL SIGNS: Temp is 98, heart rate is 58, respiratory rate is 20, blood pressure 106/50, pulse ox 97% on room air. HEENT: Moist mucous membranes. Small oral cavity. Crowded airway. NECK: Supple. No JVD. LUNGS: Have a few scattered rhonchi. HEART: S1 and S2. ABDOMEN: Soft, nontender, no organomegaly. EXTREMITIES: Trace edema. NEUROLOGIC: Awake, alert, follows simple command. MEDICATIONS: He is on Cepacol lozenges every 2 hours p.r.n., DuoNeb every 6 hours p.r.n., Lovenox 30 mg subcu daily, Norvasc 5 mg daily, Pepcid 20 mg daily, Seroquel 25 mg twice a day, Tylenol p.r.n. basis. LABORATORY DATA: Shows glucose 132, vitamin D was less than 12.8, ferritin 246. IMPRESSION AND PLAN: Status post severe hyponatremia which is resolved, history of nephrectomy secondary to renal cell carcinoma, has a one kidney, renal insufficiency, reported lung cancer, has been on chemotherapy as an outpatient, and sleep apnea syndrome. Clinically doing well. He has also questionable gout in the ankles. Continue bronchodilator. Keep head at 45 degrees. Sleep apnea precaution. Fall precaution. We will replace vitamin D. Thank you and we will follow with you. Francesco Lyman MD
[2018-03-16] MEDS: Enoxaparin 30 mg Syringe SC SCH (05:14)
[2018-03-16] MEDS: Insulin Reg-LOW-Coverage SC SCH ×4 (08:00→21:09)
[2018-03-16] MEDS ORDERED: Cholecalciferol 1,000 INTLU TAB PO SCH (10:00)
[2018-03-16] MEDS: Cholecalciferol 1,000 INTLU TAB PO SCH (10:17)
[2018-03-16 10:36] VITALS: PULSE 64; RESP 14
--- NOTE | 2018-03-16 10:39 | CP.PCM.PN ---
<Jem Castillo - Last Filed: 03/16/18 12:20> Subjective - Date & Time of Evaluation Date of Evaluation: 03/16/18 Time of Evaluation: 10:36 - Subjective Subjective: Jem Castillo D.O. PGY-3, Internal Medicine Resident, Nephrology Progress Note 78 year old male with a PMH of metastatic RCC s/p Left nephrectomy with lung mets, DM2, HTN initially admitted for severe hyponatremia and is now in the TCU. Patient was seen and examined at bedside. Patient doing much better. No acute complaints and can't wait to go home. Objective - Vital Signs/Intake and Output Vital Signs (last 24 hours): Temp Pulse Resp BP Pulse Ox 98.2 F 58 L 20 115/58 L 97 03/13/18 16:00 03/13/18 16:00 03/13/18 16:00 03/14/18 10:40 03/13/18 16:00 - Medications Medications: Current Medications Acetaminophen (Tylenol 325mg Tab) 650 mg PO Q4H PRN; Protocol PRN Reason: Pain, Moderate (4-7), fever Last Admin: 03/11/18 09:36 Dose: 650 mg Albuterol/Ipratropium (Duoneb 3 Mg/0.5 Mg (3 Ml) Ud) 3 ml IH [id number] PRN PRN Reason: Shortness of Breath Benzocaine/Menthol (Cepacol Sore Throat) 1 jimenez MT Q2H PRN; Protocol PRN Reason: Sore Throat Cholecalciferol (Vitamin D) 4,000 intlu PO DAILY [facility] Last Admin: 03/16/18 10:17 Dose: 4,000 intlu Famotidine (Pepcid) 20 mg PO DAILY [facility] Last Admin: 03/16/18 10:16 Dose: 20 mg Insulin Human Regular (Humulin R Low) 0 units SC ACHS [facility] PRN Reason: Protocol Last Admin: 03/16/18 08:00 Dose: Not Given Quetiapine Fumarate (Seroquel) 25 mg PO BID [facility] PRN Reason: Protocol Last Admin: 03/16/18 10:16 Dose: 25 mg - Labs Labs: 03/14/18 06:30 03/14/18 06:30 - Constitutional Appears: Non-toxic, No Acute Distress - Head Exam Head Exam: ATRAUMATIC - Eye Exam Eye Exam: EOMI, PERRL. absent: Scleral icterus - ENT Exam ENT Exam: Mucous Membranes Moist, Normal Oropharynx - Respiratory Exam Respiratory Exam: Clear to Ausculation Bilateral. absent: Rales, Rhonchi, Wheezes - Cardiovascular Exam Cardiovascular Exam: RRR, +S1, +S2. absent: Gallop, Murmur - GI/Abdominal Exam GI & Abdominal Exam: Soft, Normal Bowel Sounds. absent: Distended - Extremities Exam Extremities Exam: absent: Joint Swelling, Pedal Edema - Neurological Exam Neurological Exam: Alert, Awake, CN II-XII Intact - Skin Skin Exam: Dry, Intact, Warm Assessment and Plan (1) Anemia Status: Chronic (2) ZEINA (acute kidney injury) Status: Acute (3) HTN (hypertension) Status: Acute (4) Hyponatremia Status: Acute (5) CKD (chronic kidney disease) Status: Chronic (6) Vitamin D deficiency Status: Acute - Assessment and Plan (Free Text) Assessment: 78 year old male with a PMH of metastatic RCC s/p Left nephrectomy with lung mets, DM2, HTN initially admitted for severe hyponatremia and is now in the TCU. Plan: BUN and Cr have improved and are trending towards baseline BP continues to be on the low side Will benefit from re-starting losartan once BP improved for anti-proteinuric effect Vitamin D <12.8, started 4000 U Vitamin D3 po qd, discussed with patient Ferritin 246, may benefit from IV iron Patient was seen and examined and case was discussed with attending Dr. Muniz <Ajay Muniz - Last Filed: 03/16/18 23:09> Objective - Vital Signs/Intake and Output Vital Signs (last 24 hours): Temp Pulse Resp BP Pulse Ox 97.5 F L 64 14 126/50 L 97 03/16/18 10:00 03/16/18 10:00 03/16/18 10:00 03/16/18 10:03/16/18 10:00 - Medications Medications: Current Medications Acetaminophen (Tylenol 325mg Tab) 650 mg PO Q4H PRN; Protocol PRN Reason: Pain, Moderate (4-7), fever Last Admin: 03/11/18 09:36 Dose: 650 mg Albuterol/Ipratropium (Duoneb 3 Mg/0.5 Mg (3 Ml) Ud) 3 ml IH [id number] PRN PRN Reason: Shortness of Breath Benzocaine/Menthol (Cepacol Sore Throat) 1 jimenez MT Q2H PRN; Protocol PRN Reason: Sore Throat Cholecalciferol (Vitamin D) 4,000 intlu PO DAILY [facility] Last Admin: 03/16/18 10:17 Dose: 4,000 intlu Famotidine (Pepcid) 20 mg PO DAILY [facility] Last Admin: 03/16/18 10:16 Dose: 20 mg Insulin Human Regular (Humulin R Low) 0 units SC ACHS [facility] PRN Reason: Protocol Last Admin: 03/16/18 21:09 Dose: Not Given Quetiapine Fumarate (Seroquel) 25 mg PO BID [facility] PRN Reason: Protocol Last Admin: 03/16/18 17:39 Dose: 25 mg - Labs Labs: 03/14/18 06:30 03/14/18 06:30 Assessment and Plan (1) ZEINA (acute kidney injury) Status: Acute (2) Anemia Status: Chronic (3) HTN (hypertension) Status: Acute (4) CKD (chronic kidney disease) Status: Chronic Attending/Attestation - Attestation I have personally seen and examined this patient.: Yes I have fully participated in the care of the patient.: Yes I have reviewed all pertinent clinical information, including history, physical exam and plan: Yes Notes (Text): Patient seen and examined; I agree with the resident's note as above with the following additions/edits: Patient w/ PMH of metastatic RCC s/p Left nephrectomy with lung mets, DM2, HTN initially admitted for severe hyponatremia, now being followed in TCU for ZEINA on CKD; BP controlled off all anti-htn agents; has significant lower ext edema, otherwise no CHF signs/symptoms; echo from 3 yrs ago showed diastolic dysfunction; will monitor for now; Continue low K diet; 03/16/18 23:05
--- NOTE | 2018-03-17 00:21 | PN ---
Copied To: Guillermina Garcia MD Attending MD: Guillermina Garcia MD DATE: 03/16/2018 SUBJECTIVE: The patient is seen and examined on the bedside, looking comfortable. No nausea, vomiting or diarrhea. No hematuria or hematochezia. No swelling of the leg. No chest pain. No palpitation. As per the patient, he is coughing. There is no phlegm. PHYSICAL EXAMINATION: VITAL SIGNS: Temperature 97.5, pulse 64, blood pressure 123/50, respiratory rate 14. HEENT: Head normocephalic, atraumatic. Eyes PERRLA. Extraocular muscles intact. Conjunctivae clear. Nose patent. NECK: Supple. No carotid bruit. No JVD or thyromegaly. CHEST: Bilaterally symmetrical. HEART: S1 and S2 positive. LUNGS: Clear to auscultation. ABDOMEN: Soft. Bowel sounds positive. No organomegaly. EXTREMITIES: No edema. No cyanosis. NEUROLOGICAL: The patient is awake and alert. Follows simple commands. MEDICATIONS: Cepacol lozenges, albuterol, insulin, Pepcid, Seroquel, Tylenol, vitamin D. LABORATORY DATA: We do not have recent lab today, but I reviewed old labs. ASSESSMENT AND PLAN: Mr. Gilberto Robert, 78-year-old male with history of leukopenia; anemia; hyperglycemia; proteinuria; human immunodeficiency virus 1 and 2 are nonreactive; history of chronic obstructive pulmonary disease; asthma; status post severe hyponatremia, improved, IV fluid given; hypertension; hypercholesterolemia; history of renal cell carcinoma and that is the reason of nephrectomy; renal insufficiency; lung cancer, status post chemotherapy. The patient under the care of psychiatrist. Gastrointestinal, deep venous thrombosis prophylaxes. Repeat labs. Continue present treatment. we will follow up on that. We will follow up. Guillermina Garcia MD MTDEveline
--- NOTE | 2018-03-17 00:26 | PN ---
Copied To: Francesco Lyman MD Attending MD: Francesco Lyman MD DATE: 03/16/2018 PULMONARY PROGRESS NOTE REFERRING PHYSICIAN: Guillermina Garcia MD. SUBJECTIVE: Patient is out of bed to reclining chair. Lower extremities are elevated. Night was unremarkable. On and off used CPAP. No headache, no rhinitis. No abdominal pain. No dysuria. Still have trace leg swelling. OBJECTIVE: GENERAL: In no acute distress. VITAL SIGNS: Temperature is 98, heart rate is 64, respiratory rate is 14, blood pressure 126/50, pulse ox 97% room air. HEENT: Moist mucous membrane. Crowded airway. Mallampati score is 4. NECK: Supple. No JVD. LUNGS: Have fair airflow with rhonchi. HEART: S1 and S2. ABDOMEN: Soft, nontender, no organomegaly. EXTREMITIES: Does have edema. NEUROLOGIC: Awake, alert and follows simple commands. MEDICATIONS: He is on Cepacol lozenges every 2 hours p.r.n., DuoNeb every 6 hours p.r.n., Pepcid 20 mg daily, Seroquel 25 mg twice a day, Tylenol p.r.n., vitamin D 4000 units daily. LABORATORY DATA: Reviewed. Blood sugar this morning 120. IMPRESSION AND PLAN: Status post severe hyponatremia, which is resolved; history of nephrectomy secondary to renal cell carcinoma, has had one kidney with renal insufficiency; reported lung cancer, has been on chemotherapy as outpatient; sleep apnea syndrome; recurrent lower extremity edema. Pulmonary point of view, doing okay. Continue bronchodilator. Keep head at 45 degrees. Encourage CPAP use. Follow up kidney function. Avoid nephrotoxic drugs. Fall precaution. Outpatient Oncology followup. Thank you and we will follow with you. Francesco Lyman MD
[2018-03-17] MEDS: Insulin Reg-LOW-Coverage SC SCH ×2 (09:02→14:01)
--- NOTE | 2018-03-17 10:07 | CP.PCM.PN ---
Subjective - Date & Time of Evaluation Date of Evaluation: 03/17/18 Time of Evaluation: 09:58 - Subjective Subjective: Jem Castillo D.O. PGY-3, Internal Medicine Resident, Nephrology Progress Note 78 year old male with a PMH of metastatic RCC s/p Left nephrectomy with lung mets, DM2, HTN initially admitted for severe hyponatremia and is now in the TCU. Patient was seen and examined at chairside while eating breakfast. States doing great and that today he is going home. No overnight issues. Objective - Vital Signs/Intake and Output Vital Signs (last 24 hours): Temp Pulse Resp BP Pulse Ox 98.8 F 64 14 126/50 L 97 03/16/18 22:00 03/16/18 10:00 03/16/18 10:00 03/16/18 10:00 03/16/18 10:00 - Medications Medications: Current Medications Acetaminophen (Tylenol 325mg Tab) 650 mg PO Q4H PRN; Protocol PRN Reason: Pain, Moderate (4-7), fever Last Admin: 03/11/18 09:36 Dose: 650 mg Albuterol/Ipratropium (Duoneb 3 Mg/0.5 Mg (3 Ml) Ud) 3 ml IH [id number] PRN PRN Reason: Shortness of Breath Benzocaine/Menthol (Cepacol Sore Throat) 1 jimenez MT Q2H PRN; Protocol PRN Reason: Sore Throat Cholecalciferol (Vitamin D) 4,000 intlu PO DAILY [facility] Last Admin: 03/16/18 10:17 Dose: 4,000 intlu Famotidine (Pepcid) 20 mg PO DAILY [facility] Last Admin: 03/16/18 10:16 Dose: 20 mg Insulin Human Regular (Humulin R Low) 0 units SC ACHS [facility] PRN Reason: Protocol Last Admin: 03/17/18 09:02 Dose: Not Given Quetiapine Fumarate (Seroquel) 25 mg PO BID [facility] PRN Reason: Protocol Last Admin: 03/16/18 17:39 Dose: 25 mg - Labs Labs: 03/14/18 06:30 03/14/18 06:30 - Constitutional Appears: Well, Non-toxic, No Acute Distress - Head Exam Head Exam: ATRAUMATIC - Eye Exam Eye Exam: EOMI, PERRL. absent: Scleral icterus - ENT Exam ENT Exam: Mucous Membranes Moist, Normal Oropharynx - Respiratory Exam Respiratory Exam: Clear to Ausculation Bilateral. absent: Rales, Rhonchi, Wheezes - Cardiovascular Exam Cardiovascular Exam: RRR, +S1, +S2. absent: Gallop, Murmur - GI/Abdominal Exam GI & Abdominal Exam: Soft, Normal Bowel Sounds. absent: Distended - Extremities Exam Extremities Exam:Pedal Edema - Neurological Exam Neurological Exam: Alert, Awake, CN II-XII Intact - Skin Skin Exam: Dry, Intact, Warm Assessment and Plan (1) Anemia Status: Chronic (2) ZEINA (acute kidney injury) Status: Acute (3) HTN (hypertension) Status: Acute (4) Hyponatremia Status: Acute (5) CKD (chronic kidney disease) Status: Chronic (6) Vitamin D deficiency Status: Acute - Assessment and Plan (Free Text) Assessment: 78 year old male with a PMH of metastatic RCC s/p Left nephrectomy with lung mets, DM2, HFpEF, HTN initially admitted for severe hyponatremia and is now in the TCU. Plan: Still having some LE edema but unchanged Continue vitamin D Continue low K diet given recent hyperkalemia Once BP improved will benefit from losartan Given information to follow up with us in the office as an outpatient Patient was seen and examined and case was discussed with attending Dr. Muniz Thank you for the pleasure of participating in the care of this patient
[2018-03-17] MEDS: Cholecalciferol 1,000 INTLU TAB PO SCH (11:17)
[2018-03-17 11:51] VITALS: BP 117/64; TEMP 98.4; O2SAT 96
--- NOTE | 2018-03-18 13:18 | DS ---
Copied To: Guillermina Garcia MD Attending MD: Guillermina Garcia MD CHIEF COMPLAINTS: Electrolyte imbalance, fatigue. HISTORY OF PRESENT ILLNESS: Mr. Gilberto Robert, 78-year-old male, came in to [facility] emergency room with fatigue, tired, abnormal electrolyte. Sodium was very low. We put the patient in the unit for hyponatremia. Nephrology consult called. IV fluids given. Sodium got better. Then, from the unit, the patient was transferred to the medical floor. On the medical floor, the patient got treatment, physical therapy, improved. Transferred to TCU for continuity of care and for deconditioning. The patient has history of chronic lung disease; sleep apnea syndrome; status post nephrectomy in the remote past; lung cancer, unresectable status, post chemotherapy. According to the patient, he has loud snoring and is sleepy at time, even I witnessed the patient sleepy in the hospital daytime. The patient completed physical therapy, discharged home on 03/17/2018. Meds provided on the bedside. The patient will follow up as outpatient. PAST MEDICAL HISTORY: Lung cancer, unresectable; chronic lung disease; sleep apnea syndrome; kidney CA with nephrectomy. ALLERGIES: THE PATIENT IS NOT ALLERGIC TO ANY MEDICATION. SOCIAL HISTORY: History of smoking, quit 1 year ago. Alcohol, denies. Substance abuse, denies. FAMILY HISTORY: Father and mother, noncontributory. REVIEW OF SYSTEMS: The patient was seen and examined on the bedside, looking comfortable. Happy to go home. No nausea, vomiting, diarrhea. No hematuria or hematochezia. No swelling of the leg. No chest pain. No palpitation. No headache. No dizziness. No fever. No chills. Sometime having pain in the leg with the gouty arthritis. Doing great as per the patient. PHYSICAL EXAMINATION: VITAL SIGNS: Temperature 98.8, pulse 64, respiratory rate 14, blood pressure 126/50, pulse oximetry 94. HEENT: Head normocephalic, atraumatic. Eyes PERRLA. Extraocular muscles intact. Conjunctivae clear. Nose patent. NECK: Supple. No carotid bruit. No JVD or thyromegaly. CHEST: Bilaterally symmetrical. HEART: S1 and S2 positive. LUNGS: Clear to auscultation. ABDOMEN: Soft. Bowel sounds positive. No organomegaly. EXTREMITIES: No edema. No cyanosis. NEUROLOGICAL: The patient is awake and alert. Moving all 4 extremities. No focal deficits. LABORATORY DATA: White blood cells 4.3, hemoglobin 8.1, hematocrit 25.4, platelets 296. Sodium 139, potassium 4.8, BUN 35, creatinine 1.7, glucose 94. ASSESSMENT AND PLAN: Mr. Gilberto Robert, 78-year-old male with leukopenia; anemia; renal insufficiency; hyperchloremia; anemia and looks like chronic; acute kidney injury; hypertension, getting under control; hyponatremia, improved; chronic kidney disease; vitamin D deficiency. The patient has past medical history of metastatic renal cell carcinoma, status post left nephrectomy with lung metastasis; diabetes mellitus type 2. Still having left lower extremity pain, but improved. Continue vitamin D. Continue low potassium diet. Once blood pressure improved, will benefit from losartan. The patient discharged. Follow up with primary care physician, Dr. Muniz. Dr. Muniz gave information. Medicines are provided on the bedside. . Guillermina Garcia MD
== END 2018-03-17 15:40 | disposition home or self-care (01) | DRG 641 ==
LOC: TRCU 15:18
PROVIDERS: ADMIT Internal Medicine; ATTEND Internal Medicine
PROC: F07Z9FZ Gait Training/Functional Ambulation Treatment using Assistive, Adaptive, Supportive or Protective Equipment (ICD-10-PCS; principal; 2018-03-08)
PROC: F08Z4FZ Home Management Treatment using Assistive, Adaptive, Supportive or Protective Equipment (ICD-10-PCS; 2018-03-08)
DX: E87.1 Hypo-osmolality and hyponatremia (principal); N17.9 Acute kidney failure, unspecified; C78.00 Secondary malignant neoplasm of unspecified lung; I50.30 Unspecified diastolic (congestive) heart failure; I13.0 Hypertensive heart and chronic kidney disease with heart failure and stage 1 through stage 4 chronic kidney disease, or unspecified chronic kidney disease; N18.3 Chronic kidney disease, stage 3 (moderate); E11.22 Type 2 diabetes mellitus with diabetic chronic kidney disease; K21.9 Gastro-esophageal reflux disease without esophagitis; J44.9 Chronic obstructive pulmonary disease, unspecified; D63.8 Anemia in other chronic diseases classified elsewhere; E87.5 Hyperkalemia; G47.30 Sleep apnea, unspecified; M1A.9XX0 Chronic gout, unspecified, without tophus (tophi); E55.9 Vitamin D deficiency, unspecified; E78.00 Pure hypercholesterolemia, unspecified; Z85.528 Personal history of other malignant neoplasm of kidney; Z90.5 Acquired absence of kidney; Z92.21 Personal history of antineoplastic chemotherapy; Z92.3 Personal history of irradiation; Z87.891 Personal history of nicotine dependence

== ENCOUNTER 2018-09-15 10:35 | Day surgery (SDC) | payer MEDICARE, OTHER | END 2018-09-15 16:15 | disposition home or self-care (01) | LOC: SDS 10:35 ==